=== PATIENT | male | born 1985 | race Hispanic/Latino ===

== ENCOUNTER 2018-03-07 18:35 | Emergency (ER) | payer OTHER ==
--- NOTE | 2018-03-07 20:29 | RAD REPORT ---
EXAM DESCRIPTION: RAD - Chest Pa And Lat (2 Views) - 03/07/2018 8:24 pm CLINICAL HISTORY: COUGH Chest pain. COMPARISON: Chest Pa And Lat (2 Views) dated 01/29/2017 FINDINGS: The lungs are clear. The heart is normal in size. No displaced fractures. IMPRESSION: No acute or concerning finding suspected.
--- NOTE | 2018-03-07 20:35 | ER ---
Nurse's Notes [facility] Name: Reid Landers Age: 32 yrs Sex: Male : 1985 Arrival Date: 03/07/2018 Time: 18:36 Bed 20 Private MD: None, None Diagnosis: Acute upper respiratory infection, unspecified Presentation: 03/07 18:53 Presenting complaint: Patient states: my chest hurts because of the cough i had for 5 hj days, non productive; denies fever and chills; took mucines, dayquil, nyquil but not helping;. Transition of care: patient was not received from another setting of care. Onset of symptoms was March 07, 2018. Risk Assessment: Do you want to hurt yourself or someone else? Patient reports no desire to harm self or others. Initial Sepsis Screen: Does the patient meet any 2 criteria? No. Patient's initial sepsis screen is negative. Does the patient have a suspected source of infection? No. Patient's initial sepsis screen is negative. Care prior to arrival: None. 18:53 Method Of Arrival: Ambulatory 18:53 Acuity: CRISTHIAN 4 hj Triage Assessment: 18:55 General: Appears in no apparent distress. uncomfortable, Behavior is calm, cooperative, hj appropriate for age. Pain: Denies pain. Complains of pain in chest. Historical: - Allergies: 18:55 No Known Allergies; hj - Home Meds: 18:55 None [Active]; hj - PMHx: 18:55 None; hj - PSHx: 18:55 None; hj - Immunization history:: Adult Immunizations up to date. - Social history:: Smoking status: Patient/guardian denies using tobacco, Patient uses alcohol, occasionally. - Ebola Screening: : Patient negative for fever greater than or equal to 101.5 degrees Fahrenheit, and additional compatible Ebola Virus Disease symptoms Patient denies exposure to infectious person Patient denies travel to an Ebola-affected area in the 21 days before illness onset. Screenin:55 Abuse screen: Denies threats or abuse. Denies injuries from another. Nutritional hj screening: No deficits noted. Tuberculosis screening: No symptoms or risk factors identified. Fall Risk None identified. Assessment: 20:00 General: Appears in no apparent distress. comfortable, Behavior is calm, cooperative, rr5 appropriate for age. 20:00 Pain: Complains of pain in chest Pain does not radiate. Quality of pain is described as rr5 aching, Pain began gradually, Is intermittent. Neuro: Level of Consciousness is awake, alert, obeys commands, Oriented to person, place, time. Cardiovascular: Reports chest pain, Capillary refill < 3 seconds Patient's skin is warm and dry. Respiratory: Airway is patent Respiratory effort is even, unlabored, Respiratory pattern is regular, symmetrical. GI: No signs and/or symptoms were reported involving the gastrointestinal system. : No signs and/or symptoms were reported regarding the genitourinary system. EENT: No signs and/or symptoms were reported regarding the EENT system. Derm: Skin is intact, Skin temperature is warm. Musculoskeletal: Capillary refill < 3 seconds, Range of motion: intact in all extremities. 20:45 Reassessment: Patient appears in no apparent distress at this time. Patient and/or rr5 family updated on plan of care and expected duration. Pain level reassessed. discharge instruction and prescription given and explained with no complaints made. Vital Signs: 18:55 BP 130 / 81; Pulse 88; Resp 18; Temp 98.4(O); Pulse Ox 97% on R/A; Weight 99.79 kg; hj Height 5 ft. 8 in. (172.72 cm); Pain 0/10; 18:55 Body Mass Index 33.45 (99.79 kg, 172.72 cm) ED Course: 18:36 Patient arrived in ED. sb2 18:36 None, None is Private Physician. sb2 18:55 Triage completed. hj 18:55 Arm band placed on right wrist. hj 18:55 Patient has correct armband on for positive identification. Bed in low position. Call hj light in reach. Side rails up X 1. 19:47 Ed Casillas PA is PHCP. cp 19:47 Uriel Orellana MD is Attending Physician. cp 20:23 X-ray completed. Patient tolerated procedure well. Patient moved back from radiology. sg4 20:24 XRAY Chest Pa And Lat (2 Views) In Process Unspecified. EDMS 20:45 No provider procedures requiring assistance completed. Patient did not have IV access rr5 during this emergency room visit. 20:51 Ulises Sanchez RN is Primary Nurse. rr5 Administered Medications: No medications were administered Outcome: 20:34 Discharge ordered by . cp 20:45 Discharged to home ambulatory, with family. rr5 20:45 Condition: stable 20:45 Discharge instructions given to patient, family, Instructed on discharge instructions, follow up and referral plans. medication usage, Demonstrated understanding of instructions, follow-up care, medications, Prescriptions given X 2. 20:52 Patient left the ED. rr5 Signatures: Dispatcher [employer] EDMS Romero Gonzalez RN RN Ed Casillas PA PA cp Billeau, Sheri sb2 Sophie Cameron sg4 Ulises Sanchez, JUSTYN RN rr5 Corrections: (The following items were deleted from the chart) 18:57 18:55 Pulse 88bpm; Resp 18bpm; Pulse Ox 97% RA; Temp 98.4F Oral; 99.79 kg; Height 5 ft. hj 8 in.; BMI: 33.4; Pain 0/10; hj 20:55 20:52 General: Appears in no apparent distress. comfortable, Behavior is calm, rr5 cooperative, appropriate for age, rr5
--- NOTE | 2018-03-07 20:35 | EDPHYS ---
Physician Documentation [facility] Name: Reid Landers Age: 32 yrs Sex: Male : 1985 Arrival Date: 03/07/2018 Time: 18:36 Bed 20 Private MD: None, None ED Physician Uriel Orellana HPI: 03/07 20:10 This 32 yrs old Male presents to ER via Ambulatory with complaints of Cough. cp 20:10 The patient or guardian reports cough, that is intermittent, with no sputum. Onset: The cp symptoms/episode began/occurred 5 day(s) ago. Severity of symptoms: in the emergency department the symptoms are unchanged, despite home interventions. Associated signs and symptoms: Pertinent negatives: chest pain, diarrhea, fever, rhinorrhea, sore throat, vomiting. Historical: - Allergies: 18:55 No Known Allergies; hj - Home Meds: 18:55 None [Active]; hj - PMHx: 18:55 None; hj - PSHx: 18:55 None; hj - Immunization history:: Adult Immunizations up to date. - Social history:: Smoking status: Patient/guardian denies using tobacco, Patient uses alcohol, occasionally. - Ebola Screening: : Patient negative for fever greater than or equal to 101.5 degrees Fahrenheit, and additional compatible Ebola Virus Disease symptoms Patient denies exposure to infectious person Patient denies travel to an Ebola-affected area in the 21 days before illness onset. ROS: 20:15 Constitutional: Negative for body aches, chills, fever, poor PO intake. cp 20:15 Eyes: Negative for injury, pain, redness, and discharge. cp 20:15 ENT: Negative for drainage from ear(s), ear pain, sore throat, difficulty swallowing, difficulty handling secretions. 20:15 Neck: Negative for pain with movement, pain at rest, stiffness. 20:15 Cardiovascular: Negative for chest pain, edema, palpitations. 20:15 Respiratory: Positive for cough, with no reported sputum, Negative for shortness of breath, wheezing. 20:15 Abdomen/GI: Negative for abdominal pain, nausea, vomiting, and diarrhea. 20:15 Skin: Negative for cellulitis, rash. 20:15 Neuro: Negative for altered mental status, headache, weakness. 20:15 All other systems are negative. Exam: 20:20 Constitutional: The patient appears in no acute distress, alert, awake, non-toxic, well cp developed, well nourished. 20:20 Head/Face: Normocephalic, atraumatic. cp 20:20 Eyes: Periorbital structures: appear normal, Conjunctiva: normal, no exudate, no injection, Lids and lashes: appear normal, bilaterally. 20:20 ENT: External ear(s): are unremarkable, Ear canal(s): are normal, clear, TM's: bulging, is not appreciated, bilaterally, dullness, bilaterally, erythema, is not appreciated, bilaterally, Nose: is normal, Mouth: Lips: moist, Oral mucosa: pink and intact, moist, Posterior pharynx: Airway: no evidence of obstruction, patent, Tonsils: are normal in appearance, swelling, is not appreciated, erythema, is not appreciated, exudate, is not appreciated. 20:20 Neck: ROM/movement: is normal, is supple, without pain, no range of motions limitations, no meningismus, no nuchal rigidity, Lymph nodes: no appreciated lymphadenopathy. 20:20 Chest/axilla: Inspection: normal, Palpation: is normal, no crepitus, no tenderness. 20:20 Cardiovascular: Rate: normal, Rhythm: regular. 20:20 Respiratory: the patient does not display signs of respiratory distress, Respirations: normal, no use of accessory muscles, no retractions, no splinting, no tachypnea, labored breathing, is not present, Breath sounds: are clear throughout, no decreased breath sounds, no stridor, no wheezing. 20:20 Abdomen/GI: Exam negative for discomfort, distension, guarding, Inspection: abdomen appears normal. 20:20 Back: pain, is absent, ROM is normal. 20:20 Skin: cellulitis, is not appreciated, no rash present. Vital Signs: 18:55 BP 130 / 81; Pulse 88; Resp 18; Temp 98.4(O); Pulse Ox 97% on R/A; Weight 99.79 kg; hj Height 5 ft. 8 in. (172.72 cm); Pain 0/10; 18:55 Body Mass Index 33.45 (99.79 kg, 172.72 cm) hj MDM: 19:47 Patient medically screened. cp 20:10 Differential Diagnosis: Bronchitis Influenza Pharyngitis Otitis Media Asthma cp Exacerbation Viral Syndrome Pneumonia. 20:33 Data reviewed: vital signs, nurses notes, radiologic studies, plain films. cp 20:33 Test interpretation: by ED physician or midlevel provider: plain radiologic studies. cp Counseling: I had a detailed discussion with the patient and/or guardian regarding: the historical points, exam findings, and any diagnostic results supporting the discharge/admit diagnosis, radiology results, to return to the emergency department if symptoms worsen or persist or if there are any questions or concerns that arise at home. Special discussion: I discussed with the patient/guardian that the patient's current presentation does not indicate dosing of antibiotics. They should follow-up with their primary care provider and return if the symptoms persist or progress. 03/07 20:06 Order name: XRAY Chest Pa And Lat (2 Views) cp Administered Medications: No medications were administered Disposition: 03/07/18 20:34 Discharged to Home. Impression: Acute upper respiratory infection, unspecified. - Condition is Stable. - Discharge Instructions: Upper Respiratory Infection, Adult. - Prescriptions for Tessalon Perles 100 mg Oral Capsule - take 1 capsule by ORAL route every 8 hours As needed; 15 capsule. Albuterol Sulfate 90 mcg/actuation - inhale 1-2 puff by INHALATION route every 4-6 hours; 1 Inhaler. - Medication Reconciliation Form, Thank You Letter, Antibiotic Education, Prescription Opioid Use, Work release form form. - Follow up: Private Physician; When: 2 - 3 days; Reason: Recheck today's complaints. - Problem is new. - Symptoms are unchanged. Signatures: Dispatcher [employer] EDMS Romero Gonzalez RN RN Ed Casillas PA PA cp Roque, Raymond, RN RN rr5 Corrections: (The following items were deleted from the chart) 20:52 20:34 03/07/2018 20:34 Discharged to Home. Impression: Acute upper respiratory rr5 infection, unspecified. Condition is Stable. Forms are Medication Reconciliation Form, Thank You Letter, Antibiotic Education, Prescription Opioid Use. Follow up: Private Physician; When: 2 - 3 days; Reason: Recheck today's complaints. Problem is new. Symptoms are unchanged. cp
== END 2018-03-07 20:52 | disposition home or self-care (01) ==
LOC: ER 18:35
DX: J06.9 Acute upper respiratory infection, unspecified (principal)
CPT/HCPCS: 71046; 99283

== ENCOUNTER 2018-03-12 10:33 | Emergency (ER) | payer OTHER ==
--- NOTE | 2018-03-12 11:04 | ER ---
Nurse's Notes [facility] Name: Reid Landers Age: 32 yrs Sex: Male : 1985 Arrival Date: 03/12/2018 Time: 10:37 Bed 11 Private MD: Diagnosis: Acute sinusitis;Acute bronchitis Presentation: 03/12 10:44 Presenting complaint: Patient states: Persistent cough x 1 month, states, " I was seen ph here earlier this week and they said if my cough didn't get any better to come back." Denies fever, chills, N/V or sore throat. Transition of care: patient was not received from another setting of care. Onset of symptoms was March 12, 2018. Risk Assessment: Do you want to hurt yourself or someone else? Patient reports no desire to harm self or others. Initial Sepsis Screen: Does the patient meet any 2 criteria? No. Patient's initial sepsis screen is negative. Does the patient have a suspected source of infection? No. Patient's initial sepsis screen is negative. Care prior to arrival: None. 10:44 Method Of Arrival: Ambulatory ph 10:44 Acuity: CRISTHIAN 4 ph Historical: - Allergies: 10:46 No Known Allergies; ph - Home Meds: 10:46 None [Active]; ph - PMHx: 10:46 None; ph - PSHx: 10:46 None; ph - Immunization history:: Adult Immunizations unknown. - Social history:: Smoking status: Patient/guardian denies using tobacco. - Ebola Screening: : No symptoms or risks identified at this time. Screenin:48 Abuse screen: Denies threats or abuse. Denies injuries from another. Nutritional ph screening: No deficits noted. Tuberculosis screening: No symptoms or risk factors identified. Fall Risk None identified. Assessment: 10:47 General: Appears in no apparent distress. comfortable, well groomed, Behavior is calm, ph cooperative, appropriate for age, Denies fever, chills. Pain: Denies pain. Neuro: Level of Consciousness is awake, alert, obeys commands, Oriented to person, place, time, situation. Cardiovascular: Capillary refill < 3 seconds in bilateral fingers Patient's skin is warm and dry. Respiratory: Reports cough that is productive, persistent Airway is patent Respiratory effort is even, unlabored, Respiratory pattern is regular, symmetrical, Breath sounds are clear bilaterally. Denies shortness of breath. GI: No signs and/or symptoms were reported involving the gastrointestinal system. Derm: Skin is intact, is healthy with good turgor, Skin is pink, warm \\T\\ dry. Musculoskeletal: Circulation, motion, and sensation intact. Range of motion: intact in all extremities. Vital Signs: 10:45 BP 130 / 95; Pulse 97; Resp 20; Temp 98.6; Pulse Ox 98% on R/A; Weight 99.79 kg; Height ph 5 ft. 8 in. (172.72 cm); 10:45 Body Mass Index 33.45 (99.79 kg, 172.72 cm) ph ED Course: 10:37 Patient arrived in ED. as 10:43 Ed Casillas PA is PHCP. cp 10:43 Oh Castaneda MD is Attending Physician. cp 10:44 Madison Elaine, RN is Primary Nurse. ph 10:45 Triage completed. ph 10:46 Arm band placed on Patient placed in an exam room. ph 10:48 Patient has correct armband on for positive identification. Bed in low position. Call ph light in reach. Side rails up X 1. 11:20 No provider procedures requiring assistance completed. Patient did not have IV access ph during this emergency room visit. Administered Medications: No medications were administered Outcome: 11:04 Discharge ordered by . cp 11:21 Patient left the ED. ph 11:21 Discharged to home ambulatory, with family. ph 11:21 Condition: good 11:21 Discharge instructions given to patient, Instructed on discharge instructions, follow up and referral plans. medication usage, Demonstrated understanding of instructions, follow-up care, medications, Prescriptions given X 3. Signatures: Alisha Monroy as Madison Elaine, RN RN ph Ed Casillas PA PA cp
--- NOTE | 2018-03-12 11:04 | EDPHYS ---
Physician Documentation [facility] Name: Reid Landers Age: 32 yrs Sex: Male : 1985 Arrival Date: 03/12/2018 Time: 10:37 Bed 11 Private MD: ED Physician Oh Castaneda HPI: 03/12 10:58 This 32 yrs old Male presents to ER via Ambulatory with complaints of Cough. cp 10:58 The patient or guardian reports cough, that is intermittent, with productive sputum, cp that is green. Onset: The symptoms/episode began/occurred 1 month(s) ago. Severity of symptoms: in the emergency department the symptoms are unchanged. Associated signs and symptoms: Pertinent positives: headache, Pertinent negatives: diarrhea, fever, vomiting. 10:58 The patient has been recently seen at the [facility] Emergency cp Department, this week, for similar complaints X-rays were performed. Historical: - Allergies: 10:46 No Known Allergies; ph - Home Meds: 10:46 None [Active]; ph - PMHx: 10:46 None; ph - PSHx: 10:46 None; ph - Immunization history:: Adult Immunizations unknown. - Social history:: Smoking status: Patient/guardian denies using tobacco. - Ebola Screening: : No symptoms or risks identified at this time. ROS: 11:00 Eyes: Negative for injury, pain, redness, and discharge. cp 11:00 Constitutional: Negative for body aches, chills, fever, poor PO intake. 11:00 ENT: Positive for sinus congestion, Negative for drainage from ear(s), sore throat, difficulty swallowing, difficulty handling secretions. 11:00 Respiratory: Positive for cough, with green sputum, Negative for shortness of breath, wheezing. 11:00 Abdomen/GI: Negative for vomiting, diarrhea, constipation. 11:00 Skin: Negative for cellulitis, rash. 11:00 Neuro: Positive for headache, Negative for altered mental status, weakness. 11:00 All other systems are negative. Exam: 11:02 Constitutional: The patient appears in no acute distress, alert, awake, non-toxic, well cp developed, well nourished. 11:02 Head/Face: Normocephalic, atraumatic. cp 11:02 Eyes: Periorbital structures: appear normal, Pupils: equal, round, and reactive to light and accomodation, Extraocular movements: intact throughout, Conjunctiva: normal, no exudate, no injection, Sclera: no appreciated abnormality, Lids and lashes: appear normal, bilaterally. 11:02 ENT: External ear(s): are unremarkable, Ear canal(s): are normal, clear, TM's: bulging, is not appreciated, bilaterally, erythema, that is mild, bilaterally, Nose: is normal, Mouth: Lips: moist, Oral mucosa: pink and intact, moist, Posterior pharynx: is normal, airway is patent, no erythema, no exudate. 11:02 Neck: ROM/movement: is normal, is supple, without pain, no range of motions limitations, no nuchal rigidity. 11:02 Chest/axilla: Inspection: normal, Palpation: is normal, no crepitus, no tenderness. 11:02 Cardiovascular: Rate: normal, Rhythm: regular, Edema: is not appreciated, JVD: is not appreciated. 11:02 Respiratory: the patient does not display signs of respiratory distress, Respirations: normal, no use of accessory muscles, no retractions, no splinting, no tachypnea, labored breathing, is not present, Breath sounds: bronchial sounds, that are mild, are heard diffusely, decreased breath sounds, are not appreciated, stridor, is not appreciated, wheezing: is not appreciated. 11:02 Abdomen/GI: Exam negative for discomfort, distension, guarding, Inspection: abdomen appears normal. 11:02 Skin: cellulitis, is not appreciated, no rash present. Vital Signs: 10:45 BP 130 / 95; Pulse 97; Resp 20; Temp 98.6; Pulse Ox 98% on R/A; Weight 99.79 kg; Height ph 5 ft. 8 in. (172.72 cm); 10:45 Body Mass Index 33.45 (99.79 kg, 172.72 cm) ph MDM: 10:43 Patient medically screened. cp 11:00 Differential Diagnosis: Bronchitis Sinusitis Otitis Media Viral Syndrome Pneumonia. cp 11:04 Data reviewed: vital signs, nurses notes, and as a result, I will discharge patient. cp 11:04 Counseling: I had a detailed discussion with the patient and/or guardian regarding: the cp historical points, exam findings, and any diagnostic results supporting the discharge/admit diagnosis, to return to the emergency department if symptoms worsen or persist or if there are any questions or concerns that arise at home. Administered Medications: No medications were administered Disposition: 03/13 09:13 Co-signature as Attending Physician, Oh Castaneda MD. Disposition: 03/12/18 11:04 Discharged to Home. Impression: Acute sinusitis, Acute bronchitis. - Condition is Stable. - Discharge Instructions: Acute Bronchitis, Adult, Sinusitis, Adult. - Prescriptions for Augmentin 875- 125 mg Oral Tablet - take 1 tablet by ORAL route every 12 hours for 10 days; 20 tablet. Medrol (Pj) 4 mg Oral Tablets, Dose Pack - take 1 tablet by ORAL route as directed - follow package instructions; 1 packet. Guaifenesin AC 10- 100 mg/5 mL Oral Liquid - take 10 milliliters by ORAL route every 6 hours As needed; 180 milliliter. - Work release form, Medication Reconciliation Form, Thank You Letter, Antibiotic Education, Prescription Opioid Use form. - Follow up: Private Physician; When: 2 - 3 days; Reason: Recheck today's complaints. - Problem is an ongoing problem. - Symptoms are unchanged. Signatures: Madison Elaine RN RN ph Ed Casillas PA PA Oh Caputo MD MD Corrections: (The following items were deleted from the chart) 03/12 11:21 11:04 03/12/2018 11:04 Discharged to Home. Impression: Acute sinusitis; Acute ph bronchitis. Condition is Stable. Prescriptions for Augmentin 875-125 mg Oral Tablet - take 1 tablet by ORAL route every 12 hours for 10 days; 20 tablet, Medrol (Pj) 4 mg Oral Tablets, Dose Pack - take 1 tablet by ORAL route as directed - follow package instructions; 1 packet, Guaifenesin AC 10-100 mg/5 mL Oral Liquid - take 10 milliliters by ORAL route every 6 hours As needed; 180 milliliter. and Forms are Medication Reconciliation Form, Thank You Letter, Antibiotic Education, Prescription Opioid Use. Follow up: Private Physician; When: 2 - 3 days; Reason: Recheck today's complaints. Problem is an ongoing problem. Symptoms are unchanged. cp
== END 2018-03-12 11:21 | disposition home or self-care (01) ==
LOC: ER 10:33
DX: J40 Bronchitis, not specified as acute or chronic (principal); J01.90 Acute sinusitis, unspecified
CPT/HCPCS: 99282

== ENCOUNTER 2018-06-21 09:58 | Emergency (ER) | payer OTHER, SELFPAY ==
[2018-06-21] MEDS ORDERED: IPRATROPIUM BROM 0.5MG/2.5ML ONE (10:23)
[2018-06-21] MEDS ORDERED: ALBUTEROL 2.5 MG/3 ML NEB SOL ONE (10:23)
--- NOTE | 2018-06-21 10:29 | RAD REPORT ---
EXAM DESCRIPTION: RAD - Chest Pa And Lat (2 Views) - 06/21/2018 10:24 am CLINICAL HISTORY: COUGH Chest pain. COMPARISON: Chest Pa And Lat (2 Views) dated 03/07/2018; Chest Pa And Lat (2 Views) dated 01/29/2017 FINDINGS: The lungs are clear. The heart is normal in size. No displaced fractures. IMPRESSION: No acute or concerning finding suspected.
--- NOTE | 2018-06-21 10:52 | EDPHYS ---
Physician Documentation [facility] Name: Reid Landers Age: 32 yrs Sex: Male : 1985 Arrival Date: 06/21/2018 Time: 10:00 Bed 20 Private MD: None, None ED Physician Kyle Combs HPI: 06/21 10:14 This 32 yrs old Male presents to ER via Ambulatory with complaints of Cough. kb 10:14 The patient or guardian reports cough, that is intermittent, described as moderate, kb with no sputum. Onset: The symptoms/episode began/occurred 2 week(s) ago. Severity of symptoms: At their worst the symptoms were moderate, in the emergency department the symptoms are unchanged. Modifying factors: The symptoms are alleviated by nothing, the symptoms are aggravated by nothing. Associated signs and symptoms: The patient has no apparent associated signs or symptoms. The patient has experienced a previous episode. The patient has not recently seen a physician. Pt reports cough for 2 weeks. Denies fever or shortness of breath. Historical: - Allergies: 10:07 No Known Allergies; aa5 - PMHx: 10:07 None; aa5 - PSHx: 10:07 None; aa5 - Immunization history:: Flu vaccine is not up to date. - Social history:: Smoking status: Patient/guardian denies using tobacco. - Ebola Screening: : Patient denies travel to an Ebola-affected area in the 21 days before illness onset. ROS: 10:14 Constitutional: Negative for fever, chills, and weight loss, Cardiovascular: Negative kb for chest pain, palpitations, and edema, Abdomen/GI: Negative for abdominal pain, nausea, vomiting, diarrhea, and constipation, Back: Negative for injury and pain, MS/Extremity: Negative for injury and deformity, Skin: Negative for injury, rash, and discoloration, Neuro: Negative for headache, weakness, numbness, tingling, and seizure. 10:14 Respiratory: Positive for cough, wheezing, Negative for dyspnea on exertion, hemoptysis, orthopnea, pleurisy, shortness of breath, sputum production. Exam: 10:14 Constitutional: This is a well developed, well nourished patient who is awake, alert, kb and in no acute distress. Head/Face: Normocephalic, atraumatic. Chest/axilla: Normal chest wall appearance and motion. Nontender with no deformity. No lesions are appreciated. Cardiovascular: Regular rate and rhythm with a normal S1 and S2. No gallops, murmurs, or rubs. Normal PMI, no JVD. No pulse deficits. Respiratory: Lungs have equal breath sounds bilaterally, clear to auscultation and percussion. No rales, rhonchi or wheezes noted. No increased work of breathing, no retractions or nasal flaring. Abdomen/GI: Soft, non-tender, with normal bowel sounds. No distension or tympany. No guarding or rebound. No evidence of tenderness throughout. Skin: Warm, dry with normal turgor. Normal color with no rashes, no lesions, and no evidence of cellulitis. MS/ Extremity: Pulses equal, no cyanosis. Neurovascular intact. Full, normal range of motion. Neuro: Awake and alert, GCS 15, oriented to person, place, time, and situation. Cranial nerves II-XII grossly intact. Motor strength 5/5 in all extremities. Sensory grossly intact. Cerebellar exam normal. Normal gait. 10:50 Respiratory: the patient does not display signs of respiratory distress, Respirations: kb normal, Breath sounds: are clear throughout. Vital Signs: 10:05 BP 138 / 64; Pulse 98; Resp 16 S; Temp 98.5(TE); Pulse Ox 95% on R/A; Weight 98.88 kg aa5 (R); Height 5 ft. 8 in. (172.72 cm) (R); Pain 2/10; 10:05 Body Mass Index 33.15 (98.88 kg, 172.72 cm) aa5 MDM: 10:04 Patient medically screened. kb 10:17 Data reviewed: vital signs, nurses notes. Data interpreted: Pulse oximetry: on room air kb is 95 %. Interpretation: normal. 10:51 Counseling: I had a detailed discussion with the patient and/or guardian regarding: the kb historical points, exam findings, and any diagnostic results supporting the discharge/admit diagnosis, radiology results, the need for outpatient follow up, a family practitioner, to return to the emergency department if symptoms worsen or persist or if there are any questions or concerns that arise at home. 06/21 10:07 Order name: Chest Pa And Lat (2 Views) XRAY; Complete Time: 10:31 kb Administered Medications: 10:13 Drug: Albuterol 2.5 mg Route: Inhalation; tw2 10:13 Drug: AtroVENT Aerosol 0.5 mg Route: Inhalation; tw Disposition: 15:47 Co-signature as Attending Physician, Kyle Combs MD I agree with the assessment and kdr plan of care. Disposition: 06/21/18 10:51 Discharged to Home. Impression: Bronchitis, not specified as acute or chronic. - Condition is Stable. - Discharge Instructions: Acute Bronchitis, Icon-gw-Toex. - Prescriptions for Tessalon Perles 100 mg Oral Capsule - take 1 capsule by ORAL route every 8 hours As needed; 15 capsule. Albuterol Sulfate 90 mcg/actuation - inhale 1-2 puff by INHALATION route every 4-6 hours; 1 Inhaler. - Medication Reconciliation Form, Thank You Letter, Antibiotic Education, Prescription Opioid Use, Work release form form. - Follow up: Private Physician; When: 2 - 3 days; Reason: Recheck today's complaints, Continuance of care, Re-evaluation by your physician. Follow up: Emergency Department; When: As needed; Reason: Worsening of condition. Signatures: Dispatcher [employer] EDMS Jennifer Silverio, NECK PINNER-C NECK PINNER-Ckb Kyle Combs MD MD [facility] Jessica Pandya, RN RN aa5 Iman Kelley RN RN tw2 Corrections: (The following items were deleted from the chart) 10:07 10:05 Social history: Smoking status: [place] [id number] 10:07 10:05 Immunization history: Adult Immunizations [place] [id number] 10:51 10:14 Respiratory: Positive for cough, Negative for dyspnea on exertion, hemoptysis, kb orthopnea, pleurisy, shortness of breath, sputum production, wheezing, kb 10:58 10:51 06/21/2018 10:51 Discharged to Home. Impression: Bronchitis, not specified as tw2 acute or chronic. Condition is Stable. Forms are Work release form, Medication Reconciliation Form, Thank You Letter, Antibiotic Education, Prescription Opioid Use. Follow up: Private Physician; When: 2 - 3 days; Reason: Recheck today's complaints, Continuance of care, Re-evaluation by your physician. Follow up: Emergency Department; When: As needed; Reason: Worsening of condition. kb
--- NOTE | 2018-06-21 10:52 | ER ---
Nurse's Notes [facility] Name: Reid Landers Age: 32 yrs Sex: Male : 1985 Arrival Date: 06/21/2018 Time: 10:00 Bed 20 Private MD: None, None Diagnosis: Bronchitis, not specified as acute or chronic Presentation: 06/21 10:05 Risk Assessment: Do you want to hurt yourself or someone else? Patient reports no tw2 desire to harm self or others. Initial Sepsis Screen: Does the patient meet any 2 criteria? No. Patient's initial sepsis screen is negative. Does the patient have a suspected source of infection? No. Patient's initial sepsis screen is negative. Care prior to arrival: None. 10:05 Presenting complaint: Patient states: sore throat and productive cough that began 1 aa5 week ago. Transition of care: patient was not received from another setting of care. Onset of symptoms was May 2018. Risk Assessment: Do you want to hurt yourself or someone else? Patient reports no desire to harm self or others. 10:05 Method Of Arrival: Ambulatory aa5 10:05 Acuity: CRISTHIAN 3 aa5 Historical: - Allergies: 10:07 No Known Allergies; aa5 - PMHx: 10:07 None; aa5 - PSHx: 10:07 None; aa5 - Immunization history:: Flu vaccine is not up to date. - Social history:: Smoking status: Patient/guardian denies using tobacco. - Ebola Screening: : Patient denies travel to an Ebola-affected area in the 21 days before illness onset. Screenin:04 Abuse screen: Denies threats or abuse. Nutritional screening: No deficits noted. tw2 Tuberculosis screening: No symptoms or risk factors identified. Fall Risk None identified. Assessment: 10:05 General: Appears in no apparent distress. well groomed, Behavior is calm, cooperative, tw2 appropriate for age. Pain: Denies pain. Neuro: Level of Consciousness is awake, alert, obeys commands, Oriented to person, place, time, situation. Cardiovascular: Capillary refill < 3 seconds Patient's skin is warm and dry. Respiratory: Reports cough that is Airway is patent Respiratory effort is even, unlabored, Respiratory pattern is regular, symmetrical. GI: No signs and/or symptoms were reported involving the gastrointestinal system. : No signs and/or symptoms were reported regarding the genitourinary system. EENT: No signs and/or symptoms were reported regarding the EENT system. Derm: No signs and/or symptoms reported regarding the dermatologic system. 10:58 Reassessment: Patient appears in no apparent distress at this time. No changes from tw2 previously documented assessment. Patient and/or family updated on plan of care and expected duration. Pain level reassessed. Patient is alert, oriented x 3, equal unlabored respirations, skin warm/dry/pink. Vital Signs: 10:05 BP 138 / 64; Pulse 98; Resp 16 S; Temp 98.5(TE); Pulse Ox 95% on R/A; Weight 98.88 kg aa5 (R); Height 5 ft. 8 in. (172.72 cm) (R); Pain 2/10; 10:05 Body Mass Index 33.15 (98.88 kg, 172.72 cm) aa5 ED Course: 10:00 Patient arrived in ED. mr 10:01 None, None is Private Physician. mr 10:02 Iman Kelley, JUSTYN is Primary Nurse. tw2 10:04 Jennifer Silverio FNP-C [facility]. kb 10:04 Kyle Combs MD is Attending Physician. kb 10:05 Bed in low position. Call light in reach. Pulse ox on. NIBP on. tw2 10:06 Triage completed. aa5 10:06 Arm band placed on. tw2 10:25 Chest Pa And Lat (2 Views) XRAY In Process Unspecified. EDMS 10:58 No provider procedures requiring assistance completed. Patient did not have IV access tw2 during this emergency room visit. Administered Medications: 10:13 Drug: Albuterol 2.5 mg Route: Inhalation; tw2 10:13 Drug: AtroVENT Aerosol 0.5 mg Route: Inhalation; tw2 Outcome: 10:51 Discharge ordered by . kb 10:58 Discharged to home ambulatory, with significant other. tw2 10:58 Condition: stable 10:58 Discharge instructions given to patient, significant other, Instructed on discharge instructions, follow up and referral plans. medication usage, Demonstrated understanding of instructions, follow-up care, medications, Prescriptions given X 2. 10:58 Patient left the ED. tw2 Signatures: Dispatcher [employer] EDMS Jennifer Silverio CAPTION WRITER-C CAPTION WRITER-Ckb YuenRukhsana mr MumtazJessica, RN RN aa5 Iman Kelley RN RN tw2 Corrections: (The following items were deleted from the chart) 10:05 Social history: Smoking status: 10:05 Immunization history: Adult Immunizations aa5
== END 2018-06-21 10:58 | disposition home or self-care (01) ==
LOC: ER 09:58
DX: J40 Bronchitis, not specified as acute or chronic (principal)
CPT/HCPCS: 71046; 99284

== ENCOUNTER 2019-06-25 21:35 | Emergency (ER) | payer OTHER, SELFPAY ==
[2019-06-25] MEDS ORDERED: DIPHENHYDRAMINE 25 MG TAB/CAP ONE (22:12)
[2019-06-25] MEDS ORDERED: predniSONE 20 MG TAB ONE (22:12)
[2019-06-25] MEDS ORDERED: FAMOTIDINE 20 MG TAB ONE (22:13)
[2019-06-25] MEDS ORDERED: Ringers Lactate 1,000 ML IV ONE (22:47)
--- NOTE | 2019-06-25 23:00 | ER ---
Nurse's Notes [facility] Name: Reid Landers Age: 33 yrs Sex: Male : 1985 Arrival Date: 06/25/2019 Time: 21:37 Bed 2 Private MD: Diagnosis: Right eye chemosis Presentation: 06/24 21:43 Chief complaint: Patient states: Right eye irritation, redness, and swelling for less ll1 than 1 hour [employer]. No fever. Coronavirus screen: Proceed with normal triage. Patient denies a cough. Patient denies shortness of breath or difficulty breathing. Patient denies measured and/or subjective temperature greater than 100.4F prior to today's visit. Patient denies travel on a cruise ship or to a country the [facility] currently lists as an affected area. Patient denies contact with known and/or suspected case of COVID-19. Ebola Screen: Patient denies travel to an Ebola-affected area in the 21 days before illness onset. Mechanism of Injury: No Mechanism of Injury. The patient denies any loss of vision. Initial Sepsis Screen: Does the patient meet any 2 criteria? No. Patient's initial sepsis screen is negative. Does the patient have a suspected source of infection? No. Patient's initial sepsis screen is negative. Risk Assessment: Do you want to hurt yourself or someone else? Patient reports no desire to harm self or others. Onset of symptoms was June 25, 2019. 21:43 Method Of Arrival: Ambulatory ll1 21:43 Acuity: CRISTHIAN 4 ll1 Historical: - Allergies: 21:44 No Known Allergies; ll1 - PMHx: 21:44 None; ll1 - PSHx: 21:44 None; ll1 - Social history:: Smoking status: Patient denies any tobacco usage or history of. Patient uses alcohol, only on a social basis. Patient/guardian denies using street drugs. Screenin:45 Abuse screen: Denies threats or abuse. Nutritional screening: No deficits noted. jb4 Tuberculosis screening: No symptoms or risk factors identified. Fall Risk None identified. Assessment: 21:45 General: Appears in no apparent distress. comfortable, Behavior is calm, cooperative, jb4 appropriate for age, swelling noted to the right eye.. Pain: Complains of pain in right eye Pain does not radiate. Pain currently is 2 out of 10 on a pain scale. Neuro: Level of Consciousness is awake, alert, obeys commands, Oriented to person, place, time, situation. Cardiovascular: Patient's skin is warm and dry. Respiratory: Airway is patent Respiratory effort is even, unlabored, Respiratory pattern is regular, symmetrical. GI: No signs and/or symptoms were reported involving the gastrointestinal system. : No signs and/or symptoms were reported regarding the genitourinary system. EENT: Eyes are tearing on right eye Sclera/Cornea are clear in outer aspect of conjuctiva of right eye, iris of right eye and inner aspect of conjuctiva of right eye. Derm: Skin is intact, Skin is pink, warm \T\ dry. Musculoskeletal: Circulation, motion, and sensation intact. Range of motion: intact in all extremities. 23:06 Reassessment: Patient appears in no apparent distress at this time. Patient and/or jb4 family updated on plan of care and expected duration. Pain level reassessed. Patient is alert, oriented x 3, equal unlabored respirations, skin warm/dry/pink. Patient states feeling better. Patient states symptoms have improved. Vital Signs: 21:43 BP 142 / 101; Pulse 85; Resp 17; Temp 98.4; Pulse Ox 99% ; Pain 2/10; ll1 Visual Acuity: 22:20 Left Eye Visual acuity 20/15, Pupil size 4 mm, Normal, React To Light, Reactive To jb4 Accomodation; Right Eye Visual acuity 20/15, Pupil size 4 mm, Normal, React To Light, Reactive To Accomodation; Both Eyes Visual acuity 20/10; Without Lenses; ED Course: 21:37 Patient arrived in ED. ag3 21:41 Jay Jaruegui, RN is Primary Nurse. jb4 21:44 Triage completed. ll1 21:44 Arm band placed on Patient placed in an exam room, on a stretcher. ll1 21:45 Patient has correct armband on for positive identification. Placed in gown. Bed in low jb4 position. Call light in reach. Side rails up X 1. Pulse ox on. NIBP on. 21:45 No provider procedures requiring assistance completed. Patient did not have IV access jb4 during this emergency room visit. 21:46 Ed Casillas PA is PHCP. cp 21:46 Uriel Orellana MD is Attending Physician. cp 22:56 Monico Clarke MD is Referral Physician. cp Administered Medications: 22:19 Drug: Benadryl 50 mg Route: PO; jb4 22:19 Drug: Pepcid 20 mg Route: PO; jb4 22:19 Drug: predniSONE 60 mg Route: PO; jb4 Outcome: 22:58 Discharge ordered by . cp 23:00 Discharged to home ambulatory. jb4 23:00 Condition: stable 23:00 Discharge instructions given to patient, Instructed on discharge instructions, follow up and referral plans. medication usage, Demonstrated understanding of instructions, follow-up care, medications, Prescriptions given X 2. 23:06 Patient left the ED. jb4 Signatures: Ed Casillas PA PA cp Jay Jauregui RN RN jb4 Elda Mendez3 Ketty Garcia, RN RN ll1 Corrections: (The following items were deleted from the chart) 06/25 07:38 06/24 23:00 Discharge instructions given to patient, Instructed on discharge jb4 instructions, follow up and referral plans. medication usage, Demonstrated understanding of instructions, follow-up care, medications, Prescriptions given X 3, jb4
--- NOTE | 2019-06-25 23:00 | EDPHYS ---
Physician Documentation [facility] Name: Reid Landers Age: 33 yrs Sex: Male : 1985 Arrival Date: 06/25/2019 Time: 21:37 Bed 2 Private MD: ED Physician Uriel Orellana HPI: 06/24 22:00 This 33 yrs old Male presents to ER via Ambulatory with complaints of Eye Pain.cp 22:00 The patient is experiencing redness, swelling, irritation. Onset: The symptoms/episode cp began/occurred 1 hour(s) ago. Duration: the symptoms are continuous. Patient does not utilize any form of vision correction. 22:00 Patient reports he was cooking fish and rubbed eye. Denies any known allergies. cp Historical: - Allergies: :44 No Known Allergies; ll1 - PMHx: :44 None; ll1 - PSHx: :44 None; ll1 - Social history:: Smoking status: Patient denies any tobacco usage or history of. Patient uses alcohol, only on a social basis. Patient/guardian denies using street drugs. ROS: 22:05 Constitutional: Negative for body aches, chills, fever, poor PO intake. cp 22:05 Eyes: Positive for redness, swelling, of the right eye, irritation, Negative for cp discharge, foreign body sensation, injury or acute deformity. 22:05 ENT: Negative for drainage from ear(s), ear pain, sore throat, difficulty swallowing, difficulty handling secretions. 22:05 Respiratory: Negative for cough, shortness of breath, wheezing. 22:05 Abdomen/GI: Negative for abdominal pain, nausea, vomiting, and diarrhea. 22:05 Skin: Negative for rash. 22:05 Neuro: Negative for headache. 22:05 All other systems are negative. Exam: 22:25 Visual Acuity: I have reviewed the nursing documentation. cp 22:25 Head/Face: Normocephalic, atraumatic. cp 22:25 Constitutional: The patient appears in no acute distress, alert, awake, non-toxic, well developed, well nourished. 22:25 Eyes: Periorbital structures: appear normal, Pupils: equal, round, and reactive to light and accomodation, Extraocular movements: intact throughout, Conjunctiva: chemosis, that is mild, in right eye, injected, in the right eye, mild, Corneas: no acute changes, no evidence of abrasion, no foreign body, Lids and lashes: appear normal, bilaterally. 22:25 ENT: External ear(s): are unremarkable, Ear canal(s): are normal, clear, TM's: dullness, bilaterally, Nose: is normal, Mouth: is normal, Posterior pharynx: is normal, airway is patent, no erythema, no exudate. 22:25 Neck: ROM/movement: is normal, is supple, without pain, no range of motions limitations, no nuchal rigidity, Lymph nodes: no appreciated lymphadenopathy. 22:25 Chest/axilla: Inspection: normal. 22:25 Cardiovascular: Rate: normal. 22:25 Respiratory: the patient does not display signs of respiratory distress, Respirations: normal. 22:25 Skin: cellulitis, is not appreciated, no rash present. Vital Signs: 21:43 BP 142 / 101; Pulse 85; Resp 17; Temp 98.4; Pulse Ox 99% ; Pain 2/10; ll1 Visual Acuity: 22:20 Left Eye Visual acuity 20/15, Pupil size 4 mm, Normal, React To Light, Reactive To jb4 Accomodation; Right Eye Visual acuity 20/15, Pupil size 4 mm, Normal, React To Light, Reactive To Accomodation; Both Eyes Visual acuity 20/10; Without Lenses; MDM: 21:55 Patient medically screened. cp 22:00 Differential diagnosis: Corneal abrasion of right eye. Foreign body in right eye. Acute cp iritis of right eye. Allergic conjunctivitis in right eye. Infectious conjunctivitis in right eye. 22:57 Data reviewed: vital signs, nurses notes, and as a result, I will discharge patient. cp 22:57 Counseling: I had a detailed discussion with the patient and/or guardian regarding: the cp historical points, exam findings, and any diagnostic results supporting the discharge/admit diagnosis, the need for outpatient follow up, an opthalmologist, to return to the emergency department if symptoms worsen or persist or if there are any questions or concerns that arise at home. Response to treatment: the patient's symptoms have markedly improved after treatment. 06/24 21:56 Order name: Visual Acuity; Complete Time: 22:20 cp 06/24 22:32 Order name: Misc. Order: right eye irrigation with lactated ringers; Complete Time: cp 22:50 Administered Medications: 22:19 Drug: Benadryl 50 mg Route: PO; jb4 22:19 Drug: Pepcid 20 mg Route: PO; jb4 22:19 Drug: predniSONE 60 mg Route: PO; jb4 Disposition: 23:00 Chart complete. cp 23:07 Co-signature as Attending Physician, Uriel Orellana MD. pkl Disposition: 06/25/19 22:58 Discharged to Home. Impression: Right eye chemosis. - Condition is Stable. - Prescriptions for Patanol 0.1 % Ophthalmic Drops - instill 1 drop by OPHTHALMIC route every 12 hours As needed instill drops in affected eye as directed; 1 bottle. Prednisone 20 mg Oral Tablet - take 2 tablet by ORAL route once daily for 5 days; 10 tablet. - Medication Reconciliation Form, Thank You Letter, Antibiotic Education, Prescription Opioid Use form. - Follow up: Monico Clarke MD; When: 1 - 2 days; Reason: Worsening of condition. - Problem is new. - Symptoms have improved. Signatures: Uriel Orellana MD MD pkl Ed Caisllas PA PA cp Jay Jauregui RN RN jb4 Ketty Garcia RN RN ll1 Corrections: (The following items were deleted from the chart) 23:06 22:58 06/25/2019 22:58 Discharged to Home. Impression: Right eye chemosis. Condition is jb4 Stable. Forms are Medication Reconciliation Form, Thank You Letter, Antibiotic Education, Prescription Opioid Use. Follow up: Monico Clarke; When: 1 - 2 days; Reason: Worsening of condition. Problem is new. Symptoms have improved. cp
[2019-06-25 23:12] VITALS: BP 142/101; TEMP 98.4; O2SAT 99
== END 2019-06-25 23:06 | disposition home or self-care (01) ==
LOC: ER 21:35
DX: H11.421 Conjunctival edema, right eye (principal)
CPT/HCPCS: 99283; J7120; J7512

== ENCOUNTER 2019-07-14 13:30 | Emergency (ER) | payer SELFPAY ==
[2019-07-14] MEDS ORDERED: FLUORESCEIN SODIUM 1 MG/WRAP ONE (14:05)
[2019-07-14] MEDS ORDERED: TETRACAINE HCL 0.5% 4ML OPTH ONE (14:05)
--- NOTE | 2019-07-14 15:07 | ER ---
Nurse's Notes [facility] Name: Reid Landers Age: 33 yrs Sex: Male : 1985 Arrival Date: 07/14/2019 Time: 13:36 Bed 6 Private MD: Diagnosis: Ocular pain, left eye Presentation: 07/13 14:00 Chief complaint: Patient states: Working on car this morning and something got in my jl7 eye. Reports left eye irritation, redness noted to left eye. Coronavirus screen: Proceed with normal triage. Patient denies a cough. Patient denies shortness of breath or difficulty breathing. Patient denies measured and/or subjective temperature greater than 100.4F prior to today's visit. Patient denies travel on a cruise ship or to a country the [facility] currently lists as an affected area. Patient denies contact with known and/or suspected case of COVID-19. Ebola Screen: No symptoms or risks identified at this time. Initial Sepsis Screen: Does the patient meet any 2 criteria? No. Patient's initial sepsis screen is negative. Does the patient have a suspected source of infection? No. Patient's initial sepsis screen is negative. Risk Assessment: Do you want to hurt yourself or someone else? Patient reports no desire to harm self or others. Onset of symptoms was July 14, 2019 at 09:00. Care prior to arrival: None. 14:00 Method Of Arrival: Ambulatory jl7 14:00 Acuity: CRISTHIAN 4 jl7 Triage Assessment: 14:02 General: Appears in no apparent distress. uncomfortable, Behavior is calm, cooperative, jl7 appropriate for age. Pain: Denies pain. EENT: Sclera/Cornea are reddened in right eye and left eye. Neuro: Level of Consciousness is awake, alert, obeys commands, Oriented to person, place, time, situation. Cardiovascular: Patient's skin is warm and dry. Respiratory: Airway is patent Respiratory effort is even, unlabored, Respiratory pattern is regular, symmetrical. Derm: Skin is pink, warm \T\ dry. Historical: - Allergies: 14:02 No Known Allergies; jl7 - Home Meds: 14:02 None [Active]; jl7 - PMHx: 14:02 None; jl7 - PSHx: 14:02 None; jl7 - Immunization history:: Adult Immunizations unknown. - Social history:: Smoking status: Patient denies any tobacco usage or history of. - Family history:: not pertinent. Screenin:06 Abuse screen: Denies threats or abuse. Denies injuries from another. Nutritional jl7 screening: No deficits noted. Tuberculosis screening: No symptoms or risk factors identified. Fall Risk None identified. Assessment: 14:04 General: Appears in no apparent distress. comfortable, Behavior is calm, cooperative, em appropriate for age. Pain: Denies pain. Neuro: Level of Consciousness is awake, alert, obeys commands, Oriented to person, place, time, situation, Appropriate for age. Cardiovascular: Capillary refill < 3 seconds Patient's skin is warm and dry. Respiratory: Airway is patent Respiratory effort is even, unlabored, Respiratory pattern is regular, symmetrical. EENT: Eyes are tearing on left eye Sclera/Cornea are reddened in left eye Denies blurred vision photophobia. Derm: Skin is intact, is healthy with good turgor, Skin is pink, warm \T\ dry. Musculoskeletal: Capillary refill < 3 seconds, Range of motion: intact in all extremities. Vital Signs: 14:00 BP 142 / 95; Pulse 74; Resp 16; Temp 98; Pulse Ox 98% ; Weight 86.18 kg; Height 5 ft. 8 jl7 in. (172.72 cm); Pain 0/10; 14:00 Body Mass Index 28.89 (86.18 kg, 172.72 cm) jl7 Visual Acuity: 14:04 Left Eye Visual acuity 20/15, ; Right Eye Visual acuity 20/15, ; Both Eyes Visual em acuity 20/20; Without Lenses; ED Course: 13:36 Patient arrived in ED. mr 13:56 Darryl Richmond, RN is Primary Nurse. em 14:01 Ed Farrell MD is Attending Physician. [facility] 14:01 Triage completed. jl7 14:02 Arm band placed on right wrist. jl7 14:06 Patient has correct armband on for positive identification. Bed in low position. Call [facility] light in reach. Side rails up X 1. Pulse ox on. NIBP on. 14:50 Assist provider with eye exam of left eye. using fluorescein stain, Performed by Ed Farrell MD Patient tolerated well. 15:01 Patient did not have IV access during this emergency room visit. em 15:05 Monico Clarke MD is Referral Physician. [facility] Administered Medications: 14:50 Drug: Tetracaine Drops 0.5 % 1 drops Route: Ophthalmic; Site: left eye; em 14:56 Follow up: Response: No adverse reaction; Pain is decreased em 15:16 Drug: Tobramycin Ointment (0.3 %) 1 application Route: Ophthalmic; Site: left eye; em 15:16 Follow up: Response: Medication administered at discharge. em Outcome: 15:06 Discharge ordered by . [facility] 15:16 Discharged to home ambulatory. em 15:16 Condition: good 15:16 Discharge instructions given to patient, Instructed on discharge instructions, follow up and referral plans. medication usage, Demonstrated understanding of instructions, follow-up care, medications, Prescriptions given X 1. 15:18 Patient left the ED. em Signatures: Ed Farrell MD MD cha Rivera, Mary mr Munoz, Edgar, RN RN em Sommer Decker RN RN jl7
--- NOTE | 2019-07-14 15:08 | EDPHYS ---
Physician Documentation [facility] Name: Reid Landers Age: 33 yrs Sex: Male : 1985 Arrival Date: 07/14/2019 Time: 13:36 Bed 6 Private MD: ED Physician Ed Farrell HPI: 07/13 14:58 This 33 yrs old Male presents to ER via Ambulatory with complaints of Foreign sona Body In Eye. 14:58 The patient is experiencing foreign body sensation, pain, The patient sustained an sona abrasion, to the left eye. Onset: The symptoms/episode began/occurred this morning. Duration: the symptoms are continuous. Alleviated by nothing. Associated signs and symptoms: Pertinent positives: None. Patient does not utilize any form of vision correction. Severity of symptoms: At their worst the symptoms were mild in the emergency department the symptoms are unchanged. The patient has not experienced similar symptoms in the past. Historical: - Allergies: 14:02 No Known Allergies; jl7 - Home Meds: 14:02 None [Active]; jl7 - PMHx: 14:02 None; jl7 - PSHx: 14:02 None; jl7 - Immunization history:: Adult Immunizations unknown. - Social history:: Smoking status: Patient denies any tobacco usage or history of. - Family history:: not pertinent. ROS: 14:58 Constitutional: Negative for fever, chills, and weight loss, ENT: Negative for injury, sona pain, and discharge, Neck: Negative for injury, pain, and swelling, Cardiovascular: Negative for chest pain, palpitations, and edema, Respiratory: Negative for shortness of breath, cough, wheezing, and pleuritic chest pain, Abdomen/GI: Negative for abdominal pain, nausea, vomiting, diarrhea, and constipation, Back: Negative for injury and pain, : Negative for injury, bleeding, discharge, and swelling, MS/Extremity: Negative for injury and deformity, Skin: Negative for injury, rash, and discoloration, Neuro: Negative for headache, weakness, numbness, tingling, and seizure, Psych: Negative for depression, anxiety, suicide ideation, homicidal ideation, and hallucinations, Allergy/Immunology: Negative for hives, rash, and allergies, Endocrine: Negative for neck swelling, polydipsia, polyuria, polyphagia, and marked weight changes, Hematologic/Lymphatic: Negative for swollen nodes, abnormal bleeding, and unusual bruising. 14:58 Eyes: Positive for discharge, foreign body sensation, pain, of the outer aspect of conjuctiva of left eye, iris of left eye and inner aspect of conjunctiva of left eye. Exam: 14:58 Constitutional: This is a well developed, well nourished patient who is awake, alert, sona and in no acute distress. Head/Face: Normocephalic, atraumatic. ENT: Nares patent. No nasal discharge, no septal abnormalities noted. Tympanic membranes are normal and external auditory canals are clear. Oropharynx with no redness, swelling, or masses, exudates, or evidence of obstruction, uvula midline. Mucous membranes moist. Neck: Trachea midline, no thyromegaly or masses palpated, and no cervical lymphadenopathy. Supple, full range of motion without nuchal rigidity, or vertebral point tenderness. No Meningismus. Chest/axilla: Normal chest wall appearance and motion. Nontender with no deformity. No lesions are appreciated. Cardiovascular: Regular rate and rhythm with a normal S1 and S2. No gallops, murmurs, or rubs. Normal PMI, no JVD. No pulse deficits. Respiratory: Lungs have equal breath sounds bilaterally, clear to auscultation and percussion. No rales, rhonchi or wheezes noted. No increased work of breathing, no retractions or nasal flaring. Back: No spinal tenderness. No costovertebral tenderness. Full range of motion. Skin: Warm, dry with normal turgor. Normal color with no rashes, no lesions, and no evidence of cellulitis. MS/ Extremity: Pulses equal, no cyanosis. Neurovascular intact. Full, normal range of motion. Neuro: Awake and alert, GCS 15, oriented to person, place, time, and situation. Cranial nerves II-XII grossly intact. Motor strength 5/5 in all extremities. Sensory grossly intact. Cerebellar exam normal. Normal gait. Psych: Awake, alert, with orientation to person, place and time. Behavior, mood, and affect are within normal limits. 14:58 Eyes: Periorbital structures: appear normal, no acute changes, Pupils: no acute changes, equal, round, and reactive to light and accomodation, Extraocular movements: intact throughout, Conjunctiva: normal, no acute changes, Corneas: are normal, no acute changes, Sclera: no appreciated abnormality, no acute changes, Anterior chamber: normal, no acute changes, Lids and lashes: appear normal, no acute changes, funduscopic exam reveals no obvious abnormalities, no acute changes, Visual nina: are intact, no acute changes, Nystagmus: is not appreciated, no acute changes. Vital Signs: 14:00 BP 142 / 95; Pulse 74; Resp 16; Temp 98; Pulse Ox 98% ; Weight 86.18 kg; Height 5 ft. 8 jl7 in. (172.72 cm); Pain 0/10; 14:00 Body Mass Index 28.89 (86.18 kg, 172.72 cm) jl7 Visual Acuity: 14:04 Left Eye Visual acuity 20/15, ; Right Eye Visual acuity 20/15, ; Both Eyes Visual em acuity 20/20; Without Lenses; MDM: 14:01 Patient medically screened. [facility] 15:02 Data reviewed: vital signs, nurses notes. [facility] 15:02 Differential diagnosis: Corneal abrasion of Corneal ulcer of Foreign body in left eye. [facility] Data interpreted: surveillance monitor: not applicable for this patient encounter. rate is 98 beats/min, Pulse oximetry: on room air is 98 %. ED course: no fb seen, hit while working on his car, no abrasion noted. 07/13 14:02 Order name: Visual Acuity; Complete Time: 14:04 [facility] 07/13 14:02 Order name: Eye Tray; Complete Time: 14:04 [facility] 07/13 14:02 Order name: Fluoresene Opth strip; Complete Time: 14:04 [facility] Administered Medications: 14:50 Drug: Tetracaine Drops 0.5 % 1 drops Route: Ophthalmic; Site: left eye; em 14:56 Follow up: Response: No adverse reaction; Pain is decreased em 15:16 Drug: Tobramycin Ointment (0.3 %) 1 application Route: Ophthalmic; Site: left eye; em 15:16 Follow up: Response: Medication administered at discharge. em Disposition: 07/14/19 15:06 Discharged to Home. Impression: Ocular pain, left eye. - Condition is Stable. - Discharge Instructions: Eye Contusion, Eye Foreign Body, Eye Contusion, [id number]. - Prescriptions for Tobrex 0.3 % Ophthalmic ointment - apply 1 inch ribbon by OPHTHALMIC route 3 times per day; 3.5 gram. - Medication Reconciliation Form, Thank You Letter, Antibiotic Education, Prescription Opioid Use form. - Follow up: Private Physician; When: 2 - 3 days; Reason: Recheck today's complaints, Continuance of care, Re-evaluation by your physician. Follow up: Monico Clarke MD; When: 2 - 3 days; Reason: Recheck today's complaints, Continuance of care, Re-evaluation by your physician. - Problem is new. - Symptoms have improved. Signatures: Ed Farrell MD MD cha Munoz, Edgar, RN RN em Sommer Decker RN RN jl7 Corrections: (The following items were deleted from the chart) 15:18 15:06 07/14/2019 15:06 Discharged to Home. Impression: Ocular pain, left eye. Condition em is Stable. Forms are Medication Reconciliation Form, Thank You Letter, Antibiotic Education, Prescription Opioid Use. Follow up: Private Physician; When: 2 - 3 days; Reason: Recheck today's complaints, Continuance of care, Re-evaluation by your physician. Follow up: Monico Clarke; When: 2 - 3 days; Reason: Recheck today's complaints, Continuance of care, Re-evaluation by your physician. Problem is new. Symptoms have improved. sona
[2019-07-14] MEDS ORDERED: TOBRAMYCIN SULF 0.3% OPTH OINT ONE (15:10)
[2019-07-14 15:29] VITALS: BP 142/95; TEMP 98; O2SAT 98
== END 2019-07-14 15:18 | disposition home or self-care (01) ==
LOC: ER 13:30
DX: H57.12 Ocular pain, left eye (principal)
CPT/HCPCS: 99284

== ENCOUNTER 2019-10-24 21:50 | Emergency (ER) | payer SELFPAY ==
[2019-10-24] MEDS ORDERED: LIDOCAINE 1% MPF 30 ML VIAL ONE (22:42)
[2019-10-24] MEDS ORDERED: TETANUS & DIPHTHERIA TOX,ADULT 0.5 ML VIAL ONE (22:42)
--- NOTE | 2019-10-24 23:24 | EDPHYS ---
Physician Documentation [facility] Name: Reid Landers Age: 34 yrs Sex: Male : 1985 Arrival Date: 10/24/2019 Time: 21:55 Bed 4 Private MD: ED Physician Marcus Harley HPI: 10/23 22:23 This 34 yrs old Male presents to ER via Ambulatory with complaints of Head jmm Injury With LOC-Adult, Headache, Dizziness. 22:23 The patient or guardian reports injury. Onset: The symptoms/episode began/occurred jmm acutely, just prior to arrival. Associated signs and symptoms: Loss of consciousness: This patient did not experience any loss of consciousness. This is a 34 year old male with no chronic medical conditions that presents to the ED with complaints of nasal injury. Patient accidently hit his face with a pipe. Denies LOC, vomiting. . Historical: - Allergies: 21:59 No Known Allergies; ll1 - PSHx: 21:59 None; ll1 - Immunization history:: Last tetanus immunization: unknown, Flu vaccine is not up to date. - Social history:: Smoking status: Patient denies any tobacco usage or history of. Patient/guardian denies using alcohol, street drugs. ROS: 22:23 Constitutional: Negative for fever, chills, and weight loss, Cardiovascular: Negative jmm for chest pain, palpitations, and edema, Respiratory: Negative for shortness of breath, cough, wheezing, and pleuritic chest pain. 22:23 All other systems are negative. Exam: 22:23 Constitutional: This is a well developed, well nourished patient who is awake, alert, jmm and in no acute distress. 22:23 Eyes: EOMI, no conjunctival erythema appreciated ENT: Moist Mucus Membranes Neck: Trachea midline, Supple Chest/axilla: Normal chest wall appearance and motion. Cardiovascular: Regular rate and rhythm. No edema appreciated Respiratory: Normal respirations, no respiratory distress appreciated Abdomen/GI: Non distended, soft Back: Normal ROM 22:23 Head/face: nasal laceration noted. 22:23 Skin: 1.5 cm laceration noted ot the bridge of the nose. 22:23 Neuro: Orientation: is normal, Mentation: is normal, Memory: is normal. 22:23 Psych: Behavior/mood is pleasant, cooperative. Vital Signs: 21:57 BP 141 / 104; Pulse 100; Resp 18; Temp 98.2; Pulse Ox 100% ; Pain 4/10; ll1 23:21 BP 132 / 88; Pulse 83; Resp 16; Pulse Ox 100% on R/A; Pain 0/10; mt2 Abe Coma Score: 22:00 Eye Response: spontaneous(4). Verbal Response: oriented(5). Motor Response: obeys mt2 commands(6). Total: 15. Trauma Score (Adult): 22:00 Eye Response: spontaneous(1); Verbal Response: oriented(1); Motor Response: obeys mt2 commands(2); Systolic BP: > 89 mm Hg(4); Respiratory Rate: 10 to 29 per min(4); Abe Score: 15; Trauma Score: 12 Laceration: 23:21 Wound Repair of 2cm ( 0.8in ) subcutaneous laceration to bridge of nose. Distal jmm neuro/vascular/tendon intact. Anesthesia: Local anesthetic administered with 2 mls of 1% lidocaine. Wound prep: Moderate cleansing with betadine by me. Skin closed with 4 5-0 Prolene using simple sutures and sterile technique. Patient tolerated well. MDM: 22:21 Patient medically screened. [facility] 23:21 Data reviewed: vital signs, nurses notes. Counseling: I had a detailed discussion with cris the patient and/or guardian regarding: the historical points, exam findings, and any diagnostic results supporting the discharge/admit diagnosis, radiology results, the need for outpatient follow up, to return to the emergency department if symptoms worsen or persist or if there are any questions or concerns that arise at home. ED course: Patient advised to follow up with ent for further evaluation. Patient understood and agrees with the plan of care. . 10/23 22:23 Order name: CT Facial Bones W/O Con [facility] Administered Medications: 22:38 Drug: Tetanus-Diphtheria Toxoid Adult 0.5 ml {Lot Technician: [employer]. Exp: mt2 04/15/2021. Lot #: [id number]. } Route: IM; Site: right deltoid; 23:22 Follow up: Response: No adverse reaction mt2 22:39 Drug: Lidocaine (1 %) 20 ml {Note: to nasal laceration by provider.} Volume: 20 ml; mt2 Route: Infiltration; 23:22 Follow up: Response: No adverse reaction mt2 Disposition: 10/24 19:53 Co-signature as Attending Physician, Marcus Harley MD I agree with the assessment and tw4 plan of care. Disposition: 10/24/19 23:23 Discharged to Home. Impression: Fracture of nasal bones, Facial Laceration. - Condition is Stable. - Discharge Instructions: Facial Laceration, Nasal Fracture. - Prescriptions for Augmentin 875- 125 mg Oral Tablet - take 1 tablet by ORAL route every 12 hours for 10 days; 20 tablet. - Medication Reconciliation Form, Thank You Letter, Antibiotic Education, Prescription Opioid Use, Work release form form. - Follow up: Sandhya Santana MD; When: 2 - 3 days; Reason: Recheck today's complaints, Continuance of care, Re-evaluation by your physician. Signatures: Dispatcher [employer] EDMS Dario Liang PA PA jmm Wadley, Terrence, MD MD tw4 Ketty Garcia RN RN ll1 Florence Thomas RN RN mt2 Corrections: (The following items were deleted from the chart) 10/23 23:30 23:23 10/24/2019 23:23 Discharged to Home. Impression: Fracture of nasal bones; Facial mt2 Laceration. Condition is Stable. Forms are Medication Reconciliation Form, Thank You Letter, Antibiotic Education, Prescription Opioid Use. Follow up: Sandhya Santana; When: 2 - 3 days; Reason: Recheck today's complaints, Continuance of care, Re-evaluation by your physician. cris
--- NOTE | 2019-10-24 23:24 | ER ---
Nurse's Notes [facility] Name: Reid Landers Age: 34 yrs Sex: Male : 1985 Arrival Date: 10/24/2019 Time: 21:55 Bed 4 Private MD: Diagnosis: Fracture of nasal bones;Facial Laceration Presentation: 10/23 21:57 Chief complaint: Patient states: Hit nose with muffler 20 min [employer]OV[employer]LY[employer]. <2cm laceration to ll1 bridge of nose. Coronavirus screen: Client denies travel out of the [place] in the last 14 days. At this time, the client does not indicate any symptoms associated with coronavirus-19. Ebola Screen: Patient denies travel to an Ebola-affected area in the 21 days before illness onset. Initial Sepsis Screen: Does the patient meet any 2 criteria? HR > 90 bpm. Risk Assessment: Do you want to hurt yourself or someone else? Patient reports no desire to harm self or others. Onset of symptoms was October 24, 2019. 21:57 Method Of Arrival: Ambulatory [facility] 21:57 Acuity: CRISTHIAN 4 ll1 22:00 Care prior to arrival: None. Mechanism of Injury: Laceration sustained while working. mt2 Trauma event details: Injury occurred: at home. 22:00 Initial Sepsis Screen: Does the patient have a suspected source of infection? No. mt2 Patient's initial sepsis screen is negative. Trauma Activation: Alert Physician: ED Physician; Name: ; Notified At: ; Arrived At: Physician: General Surgeon; Name: ; Notified At: ; Arrived At: Physician: Radiology; Name: ; Notified At: ; Arrived At: Physician: Respiratory; Name: ; Notified At: ; Arrived At: Physician: Lab; Name: ; Notified At: ; Arrived At: Historical: - Allergies: 21:59 No Known Allergies; ll1 - PSHx: 21:59 None; ll1 - Immunization history:: Last tetanus immunization: unknown, Flu vaccine is not up to date. - Social history:: Smoking status: Patient denies any tobacco usage or history of. Patient/guardian denies using alcohol, street drugs. Screenin:00 Abuse screen: Denies threats or abuse. Nutritional screening: No deficits noted. mt2 Tuberculosis screening: No symptoms or risk factors identified. Fall Risk None identified. Primary Survey: 22:00 NO uncontrolled hemorrhage observed. A: The patient is alert. Airway: patent. mt2 Breathing/Chest: Respiratory pattern: regular, Respiratory effort: spontaneous, unlabored, Breath sounds: clear. Circulation: Cardiac rhythm: sinus rhythm. Disability Alert. Exposure/Environment: Obvious injury(ies) are noted at this time: NASAL LACERATION. 23:19 Reassessment Airway Airway Patent Breathing/Chest Respiratory pattern Regular mt2 Respiratory effort Spontaneous Unlabored Circulation Heart rhythm Sinus rhythm Disability Alert. Assessment: 22:00 Reassessment: Patient and/or family updated on plan of care and expected duration. Pain mt2 level reassessed. Patient is alert, oriented x 3, equal unlabored respirations, skin warm/dry/pink. Patient denies pain at this time. General: Appears in no apparent distress. Behavior is calm, cooperative. Pain: Denies pain. Neuro: No deficits noted. Cardiovascular: No deficits noted. Respiratory: No deficits noted. GI: No deficits noted. : No deficits noted. EENT: NASAL LACERATION. Derm: No deficits noted. Musculoskeletal: No deficits noted. 23:21 Reassessment: Patient and/or family updated on plan of care and expected duration. Pain mt2 level reassessed. Patient is alert, oriented x 3, equal unlabored respirations, skin warm/dry/pink. Patient denies pain at this time. General: Appears in no apparent distress. comfortable, Behavior is calm, cooperative. Vital Signs: 21:57 BP 141 / 104; Pulse 100; Resp 18; Temp 98.2; Pulse Ox 100% ; Pain 4/10; ll1 23:21 BP 132 / 88; Pulse 83; Resp 16; Pulse Ox 100% on R/A; Pain 0/10; mt2 Carbonado Coma Score: 22:00 Eye Response: spontaneous(4). Verbal Response: oriented(5). Motor Response: obeys mt2 commands(6). Total: 15. Trauma Score (Adult): 22:00 Eye Response: spontaneous(1); Verbal Response: oriented(1); Motor Response: obeys mt2 commands(2); Systolic BP: > 89 mm Hg(4); Respiratory Rate: 10 to 29 per min(4); [place] Score: 15; Trauma Score: 12 ED Course: 21:55 Patient arrived in ED. cf2 21:59 Triage completed. ll1 21:59 Arm band placed on Patient placed in an exam room, on a stretcher. ll1 22:00 Patient has correct armband on for positive identification. mt2 22:00 Assist provider with laceration repair Set up tray. Patient did not have IV access mt2 during this emergency room visit. 22:01 Dario Liang PA is PHCP. [facility] 22:01 Marcus Harley MD is Attending Physician. [facility] 22:27 Florence Thomas, RN is Primary Nurse. mt2 22:51 CT Facial Bones W/O Con In Process Unspecified. EDMS 23:20 Patient maintains SpO2 saturation greater than 95% on room air. Thermoregulation: NONE mt2 NEEEDED. 23:23 Sandhya Santana MD is Referral Physician. [facility] Administered Medications: 22:38 Drug: Tetanus-Diphtheria Toxoid Adult 0.5 ml {Tool Operator: [employer]. Exp: mt2 04/15/2021. Lot #: [id number]. } Route: IM; Site: right deltoid; 23:22 Follow up: Response: No adverse reaction mt2 22:39 Drug: Lidocaine (1 %) 20 ml {Note: to nasal laceration by provider.} Volume: 20 ml; mt2 Route: Infiltration; 23:22 Follow up: Response: No adverse reaction mt2 Intake: 22:00 PO: 0ml; Total: 0ml. mt2 Outcome: 23:23 Discharge ordered by . [facility] 23:30 Patient left the ED. mt2 Signatures: Dispatcher [employer] EDMS Dario Liang PA PA Sarah Solano cf2 Ketty Garcia RN RN ll1 Florence Thomas, JUSTYN RN mt2
--- NOTE | 2019-10-25 10:37 | RAD REPORT ---
EXAM DESCRIPTION: CT - Facial Bones W/ Mpr - 10/25/2019 2:09 am CLINICAL HISTORY: Nasal injury TECHNIQUE: Contiguous axial images obtained through the face and paranasal sinuses without IV contra st. Coronal and sagittal reformatted images were provided. This exam was performed according to our departmental dose-optimization program, which includes autom ated exposure control, adjustment of the mA and/or kV according to patient size and/or use of iterati ve reconstruction technique. COMPARISON: None available for comparison FINDINGS: Bones: Mildly angulated bilateral nasal bone fracture deformities. These appear somewhat c orticated. Paranasal sinuses and mastoid air cells: Mild bilateral maxillary, ethmoid, left frontal and sphenoid sinus mucosal thickening. Bilateral maxillary sinus mucous retention cysts/polyps. Orbits: Globes appear intact. No intraconal or extraconal abnormality. Optic nerves appear unremark able. Soft tissues: Bilateral perinasal soft tissue gas. IMPRESSION: Perinasal soft tissue injury. Bilateral nasal bone fractures which appear somewhat corti cated possibly related to remote trauma. Superimposed acute injury is not excluded. Electronically signed by: Jo Ann Byrd MD 10/24/2019 11:14 PM CDT Due to temporary technical issues with the PACS/Fluency reporting system, reports are being signed by the in house radiologist without review as a courtesy to ensure prompt reporting. The interpreting r adiologist is fully responsible for the content of the report.
== END 2019-10-24 23:30 | disposition home or self-care (01) ==
LOC: ER 21:50
PROC: 0JQ10ZZ Repair Face Subcutaneous Tissue and Fascia, Open Approach (ICD-10-PCS; principal; 2019-10-24)
DX: S02.2XXA Fracture of nasal bones, initial encounter for closed fracture (principal); W22.8XXA Striking against or struck by other objects, initial encounter; Y93.9 Activity, unspecified; Y92.9 Unspecified place or not applicable; Z23 Encounter for immunization
CPT/HCPCS: 70486; 76377; 90471; 90714; 99284; G0390

== ENCOUNTER 2021-03-18 23:50 | Emergency (ER) | payer OTHER, SELFPAY ==
--- NOTE | 2021-03-19 02:01 | EDPHYS ---
Physician Documentation [facility] Name: Reid Landers Age: 35 yrs Sex: Male : 1985 Arrival Date: 03/19/2021 Time: 00:04 Bed 6 Private MD: ED Physician Uriel Orellana HPI: 03/19 01:26 This 35 yrs old Male presents to ER via Ambulatory with complaints of pkl Testicular Swelling. 01:26 The patient presents with scrotal pain, of the left side, in the area of the pkl epidydimis, swelling. Onset: The symptoms/episode began/occurred 6 month(s) ago, and became worse today. Historical: - Allergies: : No Known Allergies; mk - Home Meds: : None [Active]; mk - PMHx: : None; mk - Immunization history:: Adult Immunizations up to date. - Social history:: Smoking status: Patient reports the use of cigarette tobacco products, unknown amount. ROS: 01:26 Eyes: Negative for injury, pain, redness, and discharge, ENT: Negative for injury, pkl pain, and discharge, Neck: Negative for injury, pain, and swelling, Cardiovascular: Negative for chest pain, palpitations, and edema, Respiratory: Negative for shortness of breath, cough, wheezing, and pleuritic chest pain, Abdomen/GI: Negative for abdominal pain, nausea, vomiting, diarrhea, and constipation, Back: Negative for injury and pain. 01:26 : Positive for pain and swelling left scrotum. 01: MS/extremity: Negative for acute changes. 01:26 Skin: Negative for rash. 01:26 Neuro: Negative for altered mental status, loss of consciousness. Exam: 01:26 Head/Face: Normocephalic, atraumatic. Eyes: Pupils equal round and reactive to light, pkl extra-ocular motions intact. Lids and lashes normal. Conjunctiva and sclera are non-icteric and not injected. Cornea within normal limits. Periorbital areas with no swelling, redness, or edema. ENT: Nares patent. No nasal discharge, no septal abnormalities noted. Tympanic membranes are normal and external auditory canals are clear. Oropharynx with no redness, swelling, or masses, exudates, or evidence of obstruction, uvula midline. Mucous membranes moist. Neck: Trachea midline, no thyromegaly or masses palpated, and no cervical lymphadenopathy. Supple, full range of motion without nuchal rigidity, or vertebral point tenderness. No Meningismus. Chest/axilla: Normal chest wall appearance and motion. Nontender with no deformity. No lesions are appreciated. Cardiovascular: Regular rate and rhythm with a normal S1 and S2. No gallops, murmurs, or rubs. Normal PMI, no JVD. No pulse deficits. Respiratory: Lungs have equal breath sounds bilaterally, clear to auscultation and percussion. No rales, rhonchi or wheezes noted. No increased work of breathing, no retractions or nasal flaring. Abdomen/GI: Soft, non-tender, with normal bowel sounds. No distension or tympany. No guarding or rebound. No evidence of tenderness throughout. Back: No spinal tenderness. No costovertebral tenderness. Full range of motion. 01:26 : pain and swelling left scrotum. 01:26 Musculoskeletal/extremity: Exam is negative for acute changes. 01:26 Skin: Exam negative for rash. 01:26 Neuro: Orientation: is normal, Mentation: is normal, Cranial nerves: grossly normal, Motor: is normal. Vital Signs: 00:10 BP 128 / 90; Pulse 87; Resp 18; Temp 98.3(O); Pulse Ox 98% on R/A; Weight 93.44 kg; mk Height 5 ft. 8 in. (172.72 cm); 02:24 BP 127 / 89; Pulse 84; Resp 18; Temp 97.4; Pulse Ox 98% ; mk 00:10 Body Mass Index 31.32 (93.44 kg, 172.72 cm) Crockett Coma Score: 02:24 Eye Response: spontaneous(4). Verbal Response: oriented(5). Motor Response: obeys commands(6). Total: 15. MDM: 00:06 Patient medically screened. pkl 01:57 Data reviewed: vital signs, nurses notes, radiologic studies, ultrasound. ED course: pkl Discussed imaging studies with patient. Advised to follow up with Urologist in 2 to 3 days. Patient understood instructions. 03/19 00:30 Order name: US Scrotum Testicles pkl Administered Medications: No medications were administered Disposition Summary: 03/19/21 02:01 Discharge Ordered Location: Home pkl Problem: new pkl Symptoms: are unchanged pkl Condition: Stable pkl Diagnosis - Left - sided varicocele. Trace right hydrocele pkl Followup: pkl - With: Manny Main MD - When: 2 - 3 days - Reason: Re-evaluation by your physician Forms: - Medication Reconciliation Form pkl - Thank You Letter pkl - Antibiotic Education pkl - Prescription Opioid Use pkl Signatures: Dispatcher [employer] Uriel More MD MD pkl Karen Cross, RN RN mk
--- NOTE | 2021-03-19 02:01 | ER ---
Nurse's Notes [facility] Name: Reid Landers Age: 35 yrs Sex: Male : 1985 Arrival Date: 03/19/2021 Time: 00:04 Bed 6 Private MD: Diagnosis: Left - sided varicocele. Trace right hydrocele Presentation: 03/19 00:10 Chief complaint: Patient states: Pt reports "I have been having swelling on my right mk testicle and I think I saw it move". States it has chronically been swollen but x1 day it has been worse. Denies pmhx. Coronavirus screen: Vaccine status: Patient reports being unvaccinated. Ebola Screen: Patient negative for fever greater than or equal to 101.5 degrees Fahrenheit, and additional compatible Ebola Virus Disease symptoms. Initial Sepsis Screen: Does the patient meet any 2 criteria? No. Patient's initial sepsis screen is negative. Does the patient have a suspected source of infection? No. Patient's initial sepsis screen is negative. Risk Assessment: Do you want to hurt yourself or someone else? Patient reports no desire to harm self or others. Onset of symptoms was March 18, 2021. 00:10 Method Of Arrival: Ambulatory 00:10 Acuity: CRISTHIAN 4 Triage Assessment: 01:26 General: Appears in no apparent distress. Behavior is calm, cooperative. 01:26 Neuro: Level of Consciousness is awake, alert, obeys commands, Oriented to person, place, time, situation. Cardiovascular: Denies Heart tones S1 S2 present Capillary refill < 3 seconds in bilateral fingers toes JVD is absent Patient's skin is warm and dry. Pulses are 2+ in right radial artery and left radial artery. 02:23 Pain: Denies pain. Historical: - Allergies: 01:26 No Known Allergies; - Home Meds: : None [Active]; - PMHx: : None; - Immunization history:: Adult Immunizations up to date. - Social history:: Smoking status: Patient reports the use of cigarette tobacco products, unknown amount. Screenin:23 Abuse screen: Denies threats or abuse. Nutritional screening: No deficits noted. Tuberculosis screening: No symptoms or risk factors identified. Fall Risk No fall in past 12 months (0 pts). No secondary diagnosis (0 pts). No IV (0 pts). Ambulatory Aid- None/Bed Rest/Nurse Assist (0 pts). Gait- Normal/Bed Rest/Wheelchair (0 pts) Mental Status- Oriented to own ability (0 pts). Total Guevara Fall Scale indicates No Risk (0-24 pts). Assessment: 01:26 General: Appears in no apparent distress. Pain: Denies pain. Neuro: Level of Consciousness is awake, alert, obeys commands, Oriented to person, place, time, situation, [employer] Container Winding Operator are equal bilaterally Gait is steady, Speech is normal, Facial symmetry appears normal. Cardiovascular: Heart tones S1 S2 Capillary refill < 3 seconds in bilateral Pulses are 2+ in right radial artery, right dorsalis pedis artery, left radial artery and left dorsalis pedis artery. Respiratory: Airway is patent Trachea midline Respiratory effort is even, unlabored, Respiratory pattern is regular, symmetrical. GI: Abdomen is flat, non-distended. : Reports Scrotal pain: sudden onset ongoing swelling to testicles but this evening testicular pain worse. Derm: Skin is intact, is healthy with good turgor, Skin is dry, Skin is pink, warm \\T\\ dry. Skin temperature is warm. 02:24 Reassessment: Patient appears in no apparent distress at this time. No changes from previously documented assessment. Patient and/or family updated on plan of care and expected duration. Pain level reassessed. Vital Signs: 00:10 BP 128 / 90; Pulse 87; Resp 18; Temp 98.3(O); Pulse Ox 98% on R/A; Weight 93.44 kg; Height 5 ft. 8 in. (172.72 cm); 02:24 BP 127 / 89; Pulse 84; Resp 18; Temp 97.4; Pulse Ox 98% ; mk 00:10 Body Mass Index 31.32 (93.44 kg, 172.72 cm) Bolivar Coma Score: 02:24 Eye Response: spontaneous(4). Verbal Response: oriented(5). Motor Response: obeys commands(6). Total: 15. ED Course: 00:04 Patient arrived in ED. es 00:06 Uriel Orellana MD is Attending Physician. pkl 00:43 Karen Cross, RN is Primary Nurse. mk 00:46 Triage completed. mk 01:07 US Scrotum Testicles In Process Unspecified. EDMS 01:26 Arm band placed on. mk 01:26 Patient has correct armband on for positive identification. Allergy band placed. Fall mk risk band placed. Bed in low position. Call light in reach. Side rails up X 1. Pulse ox on. NIBP on. 01:59 Manny Main MD is Referral Physician. pkl 02:23 No provider procedures requiring assistance completed. Patient did not have IV access during this emergency room visit. Administered Medications: No medications were administered Outcome: 02:01 Discharge ordered by . pkl 02:23 Discharged to home mk 02:23 Condition: stable 02:23 Discharge instructions given to patient. 02:27 Patient left the ED. Signatures: Dispatcher [employer] Uriel More MD MD pkl Salyer, Edna es Kotarski, Madeline RN RN elena Corrections: (The following items were deleted from the chart) 02:25 02:23 General: Appears in no apparent distress. Behavior is calm, cooperative, [facility]
[2021-03-19 03:07] VITALS: O2SAT 98
[2021-03-19 03:09] VITALS: BP 127/89; TEMP 97.4
--- NOTE | 2021-03-19 14:26 | RAD REPORT ---
EXAM DESCRIPTION: US - Scrotum Testicles - 03/19/2021 1:59 am CLINICAL HISTORY: 35 years Male swelling left scrotum TECHNIQUE: Sagittal and transverse ultrasound imaging and measurement of bilateral testicles with co ammy flow was performed on 03/19/2021 at 12: 51 AM.Comparison: None. FINDINGS: The right testicle measures 4.3 x 2.9 x 2.2 cm and is homogeneous in echogenicity. No fo matias masses are identified. The right epididymal head measures 1.2 x 0.8 x 1.0 cm. Doppler imaging demonstrates normal flow in the right testicle. There is a trace right hydrocele. There is no eviden ce of a right sided varicocele.The left testicle measures 3.4 x 2.5 x 1.9 cm and is homogeneous in ec hogenicity. No focal masses are identified. The left epididymal head measures 1.2 x 0.8 x 0.8 cm. D oppler imaging demonstrates normal flow in the left testicle. There is no evidence of a left hydrocel e. There is dilatation of the venous structures within the pampiniform plexus particularly during Promise kassi measuring up to 3.5 mm in diameter consistent with a varicocele. IMPRESSION: 1. Left-sided varicocele.2. Trace right hydrocele.3. Otherwise, unremarkable sonographic evaluation of the testicles. There is no evidence to suggest testicular torsion or other acute abnor mality. Electronically signed by: Lala Roca DO 03/19/2021 1:41 AM CHECKING CLERK Due to temporary technical issues with the PACS/Fluency reporting system, reports are being signed by the in house radiologists without review as a courtesy to insure prompt reporting. The interpreting radiologist is fully responsible for the content of the report.
== END 2021-03-19 02:27 | disposition home or self-care (01) ==
LOC: ER 23:50
DX: I86.1 Scrotal varices (principal); N43.3 Hydrocele, unspecified; Z72.0 Tobacco use
CPT/HCPCS: 76870

== ENCOUNTER 2021-09-09 09:07 | Emergency (ER) | payer SELFPAY ==
--- NOTE | 2021-09-09 10:10 | RAD REPORT ---
EXAM DESCRIPTION: RAD - Humerus Right - 09/09/2021 9:47 am CLINICAL HISTORY: PAIN COMPARISON: No comparisons FINDINGS: No fracture or dislocation is seen. Prominent soft tissue accumulation in the reason of th e biceps probably indicates biceps tendon rupture at the elbow.
--- NOTE | 2021-09-09 10:33 | ER ---
Nurse's Notes [facility] Name: Reid Landers Age: 35 yrs Sex: Male : 1985 Arrival Date: 09/09/2021 Time: 09:07 Bed 10 Private MD: Diagnosis: Unspecified injury of muscle, fascia and tendon of other parts of biceps, right arm, initial encounter Presentation: 09/09 09:33 Chief complaint: Patient states: he was assisting a friend lift an air conditioning ap3 unit when he heard a pop and felt what he believes to be a tear in his right upper arm. Patient presents to the ED with right upper arm pain. Coronavirus screen: At this time, the client does not indicate any symptoms associated with coronavirus-19. Ebola Screen: No symptoms or risks identified at this time. Initial Sepsis Screen: Does the patient meet any 2 criteria? No. Patient's initial sepsis screen is negative. Does the patient have a suspected source of infection? No. Patient's initial sepsis screen is negative. Risk Assessment: Do you want to hurt yourself or someone else? Patient reports no desire to harm self or others. Onset of symptoms was September 09, 2021. 09:33 Method Of Arrival: Ambulatory ap3 09:33 Acuity: CRISTHIAN 4 ap3 Triage Assessment: 09:35 General: Appears uncomfortable, Behavior is calm, cooperative. Pain: Complains of pain ap3 in right bicep Pain began suddenly, 1 hour ago. Neuro: Level of Consciousness is awake, alert, obeys commands, Oriented to person, place, time, situation, Speech is normal. Cardiovascular: Patient's skin is warm and dry. Respiratory: Airway is patent. Musculoskeletal: Range of motion: limited in right bicep. Historical: - Allergies: 09:34 No Known Allergies; ap3 - Home Meds: 09:34 None [Active]; ap3 - PMHx: 09:34 None; ap3 - Immunization history:: Client reports having NOT received the Covid vaccine. Last tetanus immunization: unknown. - Social history:: Smoking status: Patient denies any tobacco usage or history of. Screenin:36 Abuse screen: Denies threats or abuse. Nutritional screening: No deficits noted. ap3 Tuberculosis screening: No symptoms or risk factors identified. 10:27 Fall Risk None identified. ss Assessment: 10:27 General: Appears in no apparent distress. comfortable, Behavior is calm, cooperative, ss Pt is eating chips at this time. Family member at bedside . Pain: Complains of pain in right bicep Pain Quality of pain is described as aching, tender, Pain began suddenly, Is continuous. Neuro: Level of Consciousness is awake, alert, obeys commands, Oriented to person, place, time, situation, It Support Specialist are equal bilaterally Speech is normal, Facial symmetry appears normal, Pupils are PERRLA. Cardiovascular: Capillary refill < 3 seconds is brisk in bilateral fingers Patient's skin is warm and dry. Cardiovascular: Pulses are palpable in right radial artery and left radial artery. Respiratory: Airway is patent Respiratory effort is even, unlabored, Respiratory pattern is regular, symmetrical. GI: No signs and/or symptoms were reported involving the gastrointestinal system. Derm: Skin is intact, is healthy with good turgor, Skin is dry, Skin is pink, warm \T\ dry. normal. 10:27 Reassessment: Deformity noted to R bicep. ss Vital Signs: 09:33 BP 143 / 103; Pulse 78; Resp 17; Temp 98.2; Pulse Ox 98% ; Weight 90.72 kg; Height 5 ap3 ft. 8 in. (172.72 cm); Pain 9/10; 09:33 Body Mass Index 30.41 (90.72 kg, 172.72 cm) ap3 ED Course: 09:07 Patient arrived in ED. mr 09:31 [facility] jmm 09:31 Steve Yu MD is Attending Physician. jmm 09:34 Triage completed. ap3 09:36 Arm band placed on left wrist. ap3 09:48 Humerus Right XRAY In Process Unspecified. EDMS 10:27 Candice Underwood, RN is Primary Nurse. ss 10:27 Patient has correct armband on for positive identification. Bed in low position. Call ss light in reach. 10:30 Hakeem Rodriguez MD is Referral Physician. jmm 10:49 No provider procedures requiring assistance completed. Patient did not have IV access ss during this emergency room visit. Sling applied to right arm. Administered Medications: No medications were administered Medication: 10:27 VIS not applicable for this client. ss Outcome: 10:32 Discharge ordered by . jmm 10:49 Discharged to home ambulatory. ss 10:49 Condition: good 10:49 Discharge instructions given to patient, family, Instructed on discharge instructions, follow up and referral plans. medication usage, Demonstrated understanding of instructions, follow-up care, medications, Prescriptions given X 1. 10:49 Patient left the ED. ss Signatures: Dispatcher [employer] EDMS Dario Liang PA PA jmm Rukhsana Yuen mr Candice Underwood RN RN Marion Villarreal RN RN ap3 Corrections: (The following items were deleted from the chart) 10:35 10:27 Warm blanket given. ss ss 10:49 10:27 Pain: Complains of pain in right bicep Pain Quality of pain is described as ss aching, tender, Is continuous, ss
--- NOTE | 2021-09-09 10:33 | EDPHYS ---
Physician Documentation [facility] Name: Reid Landers Age: 35 yrs Sex: Male : 1985 Arrival Date: 09/09/2021 Time: 09:07 Bed 10 Private MD: ED Physician Steve Yu HPI: 09/09 09:33 This 35 yrs old Male presents to ER via Unassigned with complaints of Arm jmm Injury. 09:33 The patient or guardian complains of injury, pain. The complaints affect the right jmm bicep. Onset: The symptoms/episode began/occurred acutely. Patient complains of right arm pain after lifting an AC unit. States he felt a rip. Deformity noted to the right bicep. . Historical: - Allergies: 09:34 No Known Allergies; ap3 - Home Meds: 09:34 None [Active]; ap3 - PMHx: 09:34 None; ap3 - Immunization history:: Client reports having NOT received the Covid vaccine. Last tetanus immunization: unknown. - Social history:: Smoking status: Patient denies any tobacco usage or history of. ROS: 09:33 Constitutional: Negative for fever, chills, and weight loss, Cardiovascular: Negative jmm for chest pain, palpitations, and edema, Respiratory: Negative for shortness of breath, cough, wheezing, and pleuritic chest pain. 09:33 MS/extremity: Positive for injury or acute deformity. 09:33 All other systems are negative. Exam: 09:33 Constitutional: This is a well developed, well nourished patient who is awake, alert, jmm and in no acute distress. Head/Face: atraumatic. Eyes: EOMI, no conjunctival erythema appreciated ENT: Moist Mucus Membranes Neck: Trachea midline, Supple Chest/axilla: Normal chest wall appearance and motion. Cardiovascular: Regular rate and rhythm. No edema appreciated Respiratory: Normal respirations, no respiratory distress appreciated Abdomen/GI: Non distended Back: Normal ROM Skin: General appearance color normal 09:33 Musculoskeletal/extremity: deformity noted to the right arm, full radial pulse, compartments are soft, full director of field coordination strength, NVI. 09:33 Skin: Appearance: Color: normal in color. 09:33 Neuro: Orientation: is normal, Mentation: is normal, Memory: is normal. 09:33 Psych: Behavior/mood is pleasant, cooperative. Vital Signs: 09:33 BP 143 / 103; Pulse 78; Resp 17; Temp 98.2; Pulse Ox 98% ; Weight 90.72 kg; Height 5 ap3 ft. 8 in. (172.72 cm); Pain 11/09; 09:33 Body Mass Index 30.41 (90.72 kg, 172.72 cm) ap3 MDM: 09:33 Patient medically screened. [facility] 10:30 Data reviewed: vital signs, nurses notes. Counseling: I had a detailed discussion with [facility] the patient and/or guardian regarding: the historical points, exam findings, and any diagnostic results supporting the discharge/admit diagnosis, radiology results, the need for outpatient follow up, to return to the emergency department if symptoms worsen or persist or if there are any questions or concerns that arise at home. ED course: Patient advised to follow up with ortho for further evaluation. patient understood and agrees with the plan of care. . 09/09 09:33 Order name: Humerus Right XRAY; Complete Time: 10:[address] [facility] 09/09 10:24 Order name: Sling; Complete Time: 10:[address] [facility] Administered Medications: No medications were administered Disposition: 18:24 Co-signature as Attending Physician, Steve Yu MD. rn Disposition Summary: 09/09/21 10:32 Discharge Ordered Location: Home [facility] Condition: Stable [facility] Diagnosis - Unspecified injury of muscle, fascia and tendon of other parts of biceps, right [facility] arm, initial encounter Followup: [facility] - With: Hakeem Rodriguez MD - When: 2 - 3 days - Reason: Recheck today's complaints, Continuance of care, Re-evaluation by your physician Discharge Instructions: - Discharge Summary Sheet [facility] - Proximal Biceps Tendon Tear [facility] Forms: - Medication Reconciliation Form [facility] - Thank You Letter [facility] - Antibiotic Education [facility] - Prescription Opioid Use [facility] Prescriptions: - orphenadrine citrate 100 mg Oral Tablet Sustained Release - take 1 tablet by ORAL route 2 times per day As needed; 20 tablet; Refills: 0, [facility] Product Selection Permitted Signatures: Dispatcher [employer] EDMS Dario Liang PA PA [facility] Steve Yu MD MD rn Prokisch, Amanda, RN RN ap3
[2021-09-09 11:02] VITALS: BP 143/103; TEMP 98.2; O2SAT 98
== END 2021-09-09 10:49 | disposition home or self-care (01) ==
LOC: ER 09:07
DX: S46.801A Unspecified injury of other muscles, fascia and tendons at shoulder and upper arm level, right arm, initial encounter (principal)
CPT/HCPCS: 99283

== ENCOUNTER 2022-02-25 16:31 | Emergency (ER) | payer SELFPAY ==
--- OUTSIDE RECORDS SUMMARY | 2022-02-25 16:36 | XMS REPORT | Continuity of Care Document ---
:1985 Author Organization [facility] t Address [address] [place] [address] Care Team Providers Name Role Phone Pcp, Patient Does Not Have A Primary Care Physician +[id number] BINU MCGINNIS Attending Clinician Unavailable Binu Sandoval Attending Clinician Doctor Unassigned, [place] Attending Clinician Unavailable Problems Condition Condition Condition Status Onset Resolution Last Treating Co mments Source Name Details Category Date Date Treatment Clinician Date No known No known Disease Unive rs active active ity of problems problems [facility] Allergies, Adverse Reactions, Alerts Allergy Allergy Status Severity Reaction(s) Onset Inactive Treating Comm ents Source Name Type Date Date Clinician NO KNOWN Drug Active Univers ALLERGIE Class ity of S [facility] Social History Social Habit Start Date Stop Date Quantity Comments Source Exposure to 2021-11-02 2021-11-12 Not sure [facility]-CoV-2 00:00:00 15:19:00 [facility] (event) [place] Alcohol intake 2021-11-12 2021-11-12 Lifetime University of 00:00:00 00:00:00 non-drinker [facility] (finding) [place] Tobacco use and 2021-10-08 2021-10-08 Smokeless tobacco Un iversity of exposure 00:00:00 00:00:00 non-user [facility] Sex Ass[birth year] At [birth year] Universit y of 00:00:00 00:00:00 [facility] Smoking Status Start Date Stop Date Source Never smoked tobacco [facility] Medications Ordered Filled Start Stop Current Ordering Indication Dosage Frequency Signature Comments Components Source Medication Medication Date Date Medication? Clinician (SIG) Name Name suecinmalcolm 2021- No [id number] 40mg Univers ne 11-12 ity of acetonide 23:30: 22:21 [place] (KENALOG) 00 :00 Medical injection Branch 40 mg triamcinolo 2021- No [id number] 40mg 40 mg, [facility] ne 11-12 Intramuscu ity of acetonide 23:30: 22:21 [place]CE, [place] ([place] 00 :00 1 dose, On Medi matias injection Tue Branch 40 mg 11/12/21 at 1830, Routine No known No No known Unive rs medications 11-12 medication it y of 15:35: s [address] No known No No known Unive rs medications 11-12 medication it y of 15:35: s [address] No known No No known Unive rs medications 11-12 medication it y of 15:35: s [address] No known No No known Unive rs medications 11-12 medication it y of 15:35: s [address] Vital Signs Vital Name Observation Time Observation Value Comments Source Systolic blood 2021-11-12 21:05:00 148 mm[Hg] Univer sity [facility] pressure [facility] Diastolic blood 2021-11-12 21:05:00 92 mm[Hg] Unive rsity [facility] pressure [facility] Heart rate 2021-11-12 21:05:00 102 /min [facility] Oxygen saturation 2021-11-12 21:05:00 99 /[facility] Br anch by Pulse oximetry Body weight 2021-11-12 20:34:00 94.484 kg [facility] BMI 2021-11-12 20:34:00 31.67 kg/m2 [facility] Procedures Procedure Date / Time Performing Clinician Source Performed PATIENT FINANCIAL 2021-11-15 05:01:00 Doctor Unassigned, [facility] RESPONSIBILITY - ALL [place] [facility] Bra count includes the [facility] FORMS Encounters Start End Encounter Admission Attending Care Care Encounter Source Date/Time Date/Time Type Type Clinicians Facility Department ID 2021-12-26 2021-12-26 Outpatient RIVERA KUMAR [facility] [id number] Univers 11:15:00 11:15:00 BINU [facility] 2021-12-25 2021-12-25 [facility] [id number] Univers 00:00:00 00:00:00 (Out) Binu S HEALTH [id number] it y of [place] [id number] Jigar as JONELLE?BLEA [phone] Ne daniel MORATAYA [address] [place] MEDICAL OFFICE [facility] 2021-12-12 2021-12-12 [facility] [id number] Univers 08:15:00 08:15:00 BINU [facility] 2021-12-11 2021-12-11 [facility] [id number] Univers 00:00:00 00:00:00 (Out) Binu S HEALTH [id number] it y of [place] [id number] Jigar as JONELLE?BLEA [id number] Ne daniel VALDERRAMA 198 [facility] OFFICE [facility] 2021-11-15 2021-11-15 Orders Doctor AIMEE 1.2.840.114 [id number] Univers 00:00:00 00:00:00 Only Unassigned, RICK [id number] ity of [place] [facility] [id number] Jigar as [id number] [address] 2021-11-15 2021-11-15 [facility] [id number] Univers 00:00:00 00:00:00 (Out) Binu S HEALTH [id number] it y of [place] [id number] Jigar as JONELLE?BLEA [id number] Ne daniel MORATAYA [address] [place] [address] OFFICE [facility] 2021-11-12 2021-11-12 [facility] [id number] Univers 15:30:00 17:26:04 [facility] 2021-11-12 2021-11-12 [facility] [id number] [id number] Univers 15:30:00 17:26:04 Visit Binu S HEALTH [id number] it y of [place] 4.2.7.2.686 Jigar as JONELLE?BLEA [phone] Ne daniel MORATAYA 198 [facility] OFFICE [facility] 2021-11-12 2021-11-12 [facility] [id number] Univers 15:30:00 15:30:00 BINU ity [facility] 2021-10-23 2021-10-23 [facility] [id number] Univers 16:00:00 16:00:00 BINU ity [facility] 2021-10-23 2021-10-23 [facility] [id number] Univers 08:30:00 08:30:00 BINU [facility] 2021-10-21 2021-10-21 Letter [facility] 1.2.840.114 [id number] Univers 00:00:00 00:00:00 (Out) Binu S HEALTH 350.1.13.10 it y of [place] 4.2.7.2.686 Jigar as JONELLE?BLEA [phone] Ne daniel MORATAYA 198 [facility] 2021-10-17 2021-10-17 Letter [facility] 1.2.840.114 [id number] Univers 00:00:00 00:00:00 (Out) Binu S HEALTH 350.1.13.10 it y of [place] 4.2.7.2.686 Jigar as JONELLE?BLEA [phone] Ne daniel MORATAYA [address] [place] [address] OFFICE [facility] 2021-10-09 2021-10-09 Telephone [facility] [id number] Univers 00:00:00 00:00:00 Binu S HEALTH 350.1.13.10 it y of [place] 4.2.7.2.686 Jigar as JONELLE?BLEA [phone] Ne daniel MORATAYA [address] [place] [address] OFFICE [facility] 2021-10-08 2021-10-08 [facility] [id number] Univers 15:00:00 16:27:42 BINU ity [facility] 2021-10-08 2021-10-08 Office Tiffani [facility] [id number] [id number] Univers 15:00:00 16:27:42 Visit Binu S [facility] [id number] [facility] [id number] Jigar as JONELLE?BLEA [phone] Ne daniel MORATAYA [address] [place] [facility] 2021-10-08 2021-10-08 Letter Tiffani [facility] [id number] [id number] Univers 00:00:00 00:00:00 (Out) Binu S HEALTH [id number] [facility] 4.2.7.2.686 Jigar as JONELLE?BLEA [phone] Ne daniel VALDERRAMACARLOS [address] [place] [facility] 2021-10-08 2021-10-08 Orders Doctor AIMEE [id number] [id number] Univers 00:00:00 00:00:00 Only Unassigned, RICK 350.1.13.10 ity of [place] [facility] 4.2.7.2.686 Jigar as [phone] [place] [address] Branch Results This patient has no known results.
--- NOTE | 2022-02-25 17:21 | RAD REPORT ---
EXAM DESCRIPTION: CT - CTHCSPWOC - 02/25/2022 4:59 pm CLINICAL HISTORY: Trauma, head and neck injury. radicular COMPARISON: No comparisons TECHNIQUE: Axial 5 mm thick images of the head were obtained. Axial 2 mm thick images of the cervical spine were obtained with sagittal and coronal reconstruction images generated and reviewed. All CT scans are performed using dose optimization technique as appropriate and may include automated exposure control or mA/KV adjustment according to patient size. FINDINGS: CT HEAD WITHOUT CONTRAST: No acute hemorrhage, hydrocephalus or extra-axial collection is identified.No areas of brain edema or midline shift. Trace left maxillary sinus thickening.The calvarium is intact. CT CERVICAL SPINE WITHOUT CONTRAST: No fracture or subluxation.No prevertebral soft tissues swelling is identified. IMPRESSION: No acute intracranial or cervical spine findings.
--- NOTE | 2022-02-25 17:28 | RAD REPORT ---
EXAM DESCRIPTION: RAD - Chest Single View - 02/25/2022 5:10 pm CLINICAL HISTORY: COUGH COMPARISON: Chest Pa And Lat (2 Views) dated 06/21/2018; Chest Pa And Lat (2 Views) dated 03/07/2018; C hest Pa And Lat (2 Views) dated 01/29/2017 FINDINGS: Lines: None. Lungs: There is likely some atelectasis as result of left hemidiaphragm elevation. No evidence of a c onsolidative airspace disease or edema is present. Pleural: No significant pleural effusions or pneumothorax. Cardiac: The heart size is within normal limits. Mediastinum: Within normal limits. Bones: No acute fractures. Other: None IMPRESSION: Probable mild left basilar atelectasis. No evidence of a consolidative pneumonia or melanie a.
--- NOTE | 2022-02-25 19:07 | RAD REPORT ---
EXAM DESCRIPTION: RAD - Shoulder Left 2 View - 02/25/2022 6:48 pm CLINICAL HISTORY: PAIN COMPARISON: No comparisons FINDINGS/IMPRESSION: No acute fracture. No malalignment. No significant focal degenerative changes.
[2022-02-25 19:43] LABS: Absolute Lymphocytes (CBC) 2.1 K/uL (0.7-4.9); Hematocrit 43.2 % (39.6-49.0); Lymphocytes % 27.6 % (15.3-44.8); MPV 8.2 fL (7.6-11.3); RBC Red Blood Cell Count 4.97 M/uL (4.33-5.43)
[2022-02-25 19:44] LABS: Protime INR 1.07
[2022-02-25 20:02] LABS: Albumin 4.1 g/dL (3.4-5.0); Bilirubin Direct 0.1 mg/dL (0-0.2); Bilirubin Total 0.5 mg/dL (0.2-1.0); Magnesium 2.5 mg/dL (1.6-2.4); Potassium 3.7 mmol/L (3.5-5.1); Protein, Total 7.9 g/dL (6.4-8.2); Troponin High Sensitivity 4.9 pg/mL (<58.9)
--- NOTE | 2022-02-25 20:17 | ER ---
Nurse's Notes [facility] Name: Reid Landers Age: 36 yrs Sex: Male : 1985 Arrival Date: 02/25/2022 Time: 16:33 Bed 12 Private MD: Diagnosis: Unspecified symptoms and signs involving the musculoskeletal system;Pain in left shoulder;Cervical disc disorder with radiculopathy, cervicothoracic region Presentation: 02/25 17:17 Chief complaint: Patient states: L shoulder/arm pain numbness for 1.5 months after ll1 lifting heavy equipment. States he tore his R bicep at this time, but that feels better now. L side still bothersome. Coronavirus screen: Vaccine status: Client denies travel out of the [place] in the last 14 days. At this time, the client does not indicate any symptoms associated with coronavirus-19. Ebola Screen: Patient denies travel to an Ebola-affected area in the 21 days before illness onset. Initial Sepsis Screen: Does the patient meet any 2 criteria? No. Patient's initial sepsis screen is negative. Does the patient have a suspected source of infection? No. Patient's initial sepsis screen is negative. Risk Assessment: Do you want to hurt yourself or someone else? Patient reports no desire to harm self or others. Onset of symptoms was December 31, 2021. 17:17 Method Of Arrival: Ambulatory ll1 17:17 Acuity: CRISTHIAN 4 ll1 Triage Assessment: 17:19 General: Appears in no apparent distress. Behavior is calm, cooperative, appropriate ll1 for age. Pain: Complains of pain in left arm Pain currently is 3 out of 10 on a pain scale. Quality of pain is described as aching. Musculoskeletal: Circulation, motion, and sensation intact. Capillary refill < 3 seconds, Reports numbness in left arm pain in left arm. Historical: - Allergies: 17:19 No Known Allergies; ll1 - PMHx: 17:19 None; ll1 - PSHx: 17:19 None; ll1 - Immunization history:: Client reports having NOT received the Covid vaccine. - Social history:: Smoking status: Patient denies any tobacco usage or history of. Screenin:51 [facility] ED Fall Risk Assessment (Adult) History of falling in the last 3 months, tw5 including since admission. Abuse screen: Denies threats or abuse. Denies injuries from another. Nutritional screening: No deficits noted. Tuberculosis screening: No symptoms or risk factors identified. Assessment: 20:40 General: Reports "About a month ago I stopped being able to lift left arm. If I lift it tw5 it goes numb then falls and then my right arm feels like pins and needles.". Neuro: Level of Consciousness is awake, alert, obeys commands. Cardiovascular: No deficits noted. Respiratory: Airway is patent Trachea midline Respiratory effort is even, unlabored. GI: No deficits noted. Vital Signs: 17:17 BP 161 / 102; Pulse 100; Resp 17; Temp 98.6; Pulse Ox 100% ; Weight 92.08 kg; Height 5 ll1 ft. 8 in. (172.72 cm); Pain 10/10; 20:51 BP 147 / 92; Pulse 83; Resp 18; Pulse Ox 100% on R/A; tw5 17:17 Body Mass Index 30.87 (92.08 kg, 172.72 cm) ll1 ED Course: 16:33 Patient arrived in ED. as 16:42 Ed Farrell MD is Attending Physician. sona 17:01 CT Head C Spine In Process Unspecified. EDMS 17:12 XRAY Chest (1 view) In Process Unspecified. EDMS 17:19 Triage completed. ll1 17:19 Arm band placed on. ll1 18:49 Shoulder Left (2 View) XRAY In Process Unspecified. EDMS 19:13 Dario Liang PA is PHCP. [facility] 19:30 Lali Rojas is Primary Nurse. tw5 19:40 Initial lab(s) drawn, by ia, sent to lab. Inserted saline lock: 22 gauge in right mb4 antecubital area, using aseptic technique. Blood collected. 20:16 Hipolito Moctezuma MD is Referral Physician. m 20:44 EKG done, by ED staff, reviewed by Dario FUENTES. as7 20:51 Patient has correct armband on for positive identification. Placed in gown. Bed in low tw5 position. Call light in reach. Side rails up X 1. machine baster on. Pulse ox on. NIBP on. 20:51 No provider procedures requiring assistance completed. IV discontinued, intact, tw5 bleeding controlled, No redness/swelling at site. Pressure dressing applied. Administered Medications: 20:43 Drug: NS 0.9% 1000 ml Route: IV; Rate: 125 ml/hr; Site: right antecubital; tw5 20:53 Follow up: IV Status: Order to discontinue infusion; IV Intake: 200ml tw5 20:45 Drug: Aspirin Chewable Tablet 162 mg Route: PO; tw5 20:53 Follow up: Response: No adverse reaction tw5 20:46 Not Given (Patient Refused): Valium (diazepam) 5 mg PO once tw5 20:48 Drug: Decadron - Dexamethasone 10 mg Route: IVP; Site: right antecubital; tw5 20:52 Follow up: Response: No adverse reaction tw5 20:49 Drug: Ketorolac 30 mg Route: IVP; Site: right antecubital; tw5 20:53 Follow up: Response: No adverse reaction tw5 20:49 Not Given (Patient Refused): [place] (HYDROcodone-acetaminophen) 10 mg-325 mg 1 tabs PO tw5 once Medication: 20:51 VIS not applicable for this client. tw5 Intake: 20:53 IV: 200ml; Total: 200ml. tw5 Outcome: 20:16 Discharge ordered by . cris 20:51 Discharged to home ambulatory. tw5 20:51 Condition: good 20:51 Discharge instructions given to patient, Instructed on discharge instructions, follow up and referral plans. Demonstrated understanding of instructions, follow-up care, medications, Prescriptions given X 3. 20:53 Patient left the ED. tw5 Signatures: Dispatcher [employer] EDEd Casas MD MD cha Mickail, Joel, PA PA jmm Martinez, Amelia as Baxter, Mackenzie mb4 Ketty Garcia RN RN ll1 Lali Rojas tw5 Rivka Gray as7
--- NOTE | 2022-02-25 20:17 | EDPHYS ---
Physician Documentation [facility] Name: Reid Landers Age: 36 yrs Sex: Male : 1985 Arrival Date: 02/25/2022 Time: 16:33 Bed 12 Private MD: ED Physician Ed Farrell HPI: 02/25 18:29 This 36 yrs old Male presents to ER via Ambulatory with complaints of Numbness sona Of Arm. Historical: - Allergies: 17:19 No Known Allergies; ll1 - PMHx: 17:19 None; ll1 - PSHx: 17:19 None; ll1 - Immunization history:: Client reports having NOT received the Covid vaccine. - Social history:: Smoking status: Patient denies any tobacco usage or history of. ROS: 18:31 Constitutional: Negative for fever, chills, and weight loss, Eyes: Negative for injury, sona pain, redness, and discharge, ENT: Negative for injury, pain, and discharge, Cardiovascular: Negative for chest pain, palpitations, and edema, Respiratory: Negative for shortness of breath, cough, wheezing, and pleuritic chest pain, Abdomen/GI: Negative for abdominal pain, nausea, vomiting, diarrhea, and constipation, Back: Negative for injury and pain, : Negative for injury, bleeding, discharge, and swelling, Skin: Negative for injury, rash, and discoloration, Neuro: Negative for headache, weakness, numbness, tingling, and seizure, Psych: Negative for depression, anxiety, suicide ideation, homicidal ideation, and hallucinations, Allergy/Immunology: Negative for hives, rash, and allergies, Endocrine: Negative for neck swelling, polydipsia, polyuria, polyphagia, and marked weight changes, Hematologic/Lymphatic: Negative for swollen nodes, abnormal bleeding, and unusual bruising. 18:31 Neck: Positive for pain with movement, stiffness. 18:31 MS/extremity: Positive for decreased range of motion, tenderness, of the anterior aspect of left shoulder and posterior aspect of left shoulder. Exam: 18:31 Constitutional: This is a well developed, well nourished patient who is awake, alert, sona and in no acute distress. Head/Face: Normocephalic, atraumatic. Eyes: Pupils equal round and reactive to light, extra-ocular motions intact. Lids and lashes normal. Conjunctiva and sclera are non-icteric and not injected. Cornea within normal limits. Periorbital areas with no swelling, redness, or edema. ENT: Nares patent. No nasal discharge, no septal abnormalities noted. Tympanic membranes are normal and external auditory canals are clear. Oropharynx with no redness, swelling, or masses, exudates, or evidence of obstruction, uvula midline. Mucous membranes moist. Neck: Trachea midline, no thyromegaly or masses palpated, and no cervical lymphadenopathy. Supple, full range of motion without nuchal rigidity, or vertebral point tenderness. No Meningismus. Chest/axilla: Normal chest wall appearance and motion. Nontender with no deformity. No lesions are appreciated. Cardiovascular: Regular rate and rhythm with a normal S1 and S2. No gallops, murmurs, or rubs. Normal PMI, no JVD. No pulse deficits. Respiratory: Lungs have equal breath sounds bilaterally, clear to auscultation and percussion. No rales, rhonchi or wheezes noted. No increased work of breathing, no retractions or nasal flaring. Abdomen/GI: Soft, non-tender, with normal bowel sounds. No distension or tympany. No guarding or rebound. No evidence of tenderness throughout. Back: No spinal tenderness. No costovertebral tenderness. Full range of motion. Skin: Warm, dry with normal turgor. Normal color with no rashes, no lesions, and no evidence of cellulitis. Neuro: Awake and alert, GCS 15, oriented to person, place, time, and situation. Cranial nerves II-XII grossly intact. Motor strength 5/5 in all extremities. Sensory grossly intact. Cerebellar exam normal. Normal gait. Psych: Awake, alert, with orientation to person, place and time. Behavior, mood, and affect are within normal limits. 18:31 Musculoskeletal/extremity: ROM: limited active range of motion, limited passive range of motion, limited active range of motion due to pain, limited passive range of motion due to pain, in the anterior aspect of left shoulder and posterior aspect of left shoulder, Pulses: noted to be 4+ in the bilateral radial, brachial, femoral, popliteal, posterior tibial and and dorsalis pedis arteries., Sensation intact. Compartment Syndrome exam of affected extremity: is normal. 18:31 Musculoskeletal/extremity: Joints: All joints are normal except the left shoulder displays limited range of motion, pain at rest, painful range of motion, tenderness, DVT Exam: negative Homans' sign noted on exam, no appreciated bluish discoloration, no erythema, no increased warmth, swelling. Vital Signs: 17:17 BP 161 / 102; Pulse 100; Resp 17; Temp 98.6; Pulse Ox 100% ; Weight 92.08 kg; Height 5 ll1 ft. 8 in. (172.72 cm); Pain 10/10; 20:51 BP 147 / 92; Pulse 83; Resp 18; Pulse Ox 100% on R/A; tw5 17:17 Body Mass Index 30.87 (92.08 kg, 172.72 cm) ll1 MDM: 18:33 Differential diagnosis: dislocation, closed fracture, contusion, tendonitis. Data sona reviewed: vital signs, nurses notes, lab test result(s), EKG, radiologic studies, CT scan, plain films. Data interpreted: shear assembler: rate is 100 beats/min, rhythm is regular, Pulse oximetry: on room air is 100 %. Test interpretation: by ED physician or midlevel provider: ECG, plain radiologic studies. Counseling: I had a detailed discussion with the patient and/or guardian regarding: the historical points, exam findings, and any diagnostic results supporting the discharge/admit diagnosis, lab results, radiology results, the need for outpatient follow up, for definitive care, a family practitioner, a orthopedic surgeon. 19:03 Patient medically screened. [facility] 02/25 16:43 Order name: Basic Metabolic Panel; Complete Time: 20:03 [facility] 02/25 16:43 Order name: CBC with Diff; Complete Time: 19:54 [facility] 02/25 16:43 Order name: LFT's; Complete Time: 20:03 [facility] 02/25 16:43 Order name: Magnesium; Complete Time: 20:03 [facility] 02/25 16:43 Order name: NT PRO-BNP; Complete Time: 20:03 [facility] 02/25 16:43 Order name: PT-INR; Complete Time: 19:54 [facility] 02/25 16:43 Order name: Troponin HS; Complete Time: 20:03 [facility] 02/25 16:43 Order name: XRAY Chest (1 view); Complete Time: 18:28 [facility] 02/25 16:43 Order name: CT Head C Spine; Complete Time: 18:28 [facility] 02/25 18:29 Order name: Shoulder Left (2 View) XRAY; Complete Time: 19:11 [facility] 02/25 16:43 Order name: EKG; Complete Time: 16:44 [facility] 02/25 16:43 Order name: Cardiac monitoring; Complete Time: 20:40 [facility] 02/25 16:43 Order name: EKG - Nurse/Tech; Complete Time: 20:50 [facility] 02/25 16:43 Order name: IV Saline Lock; Complete Time: 20:50 [facility] 02/25 16:43 Order name: Labs collected and sent; Complete Time: 20:50 [facility] 02/25 16:43 Order name: O2 Per Protocol; Complete Time: 20:50 [facility] 02/25 16:43 Order name: O2 Sat Monitoring; Complete Time: 20:50 [facility] Administered Medications: 20:43 Drug: NS 0.9% 1000 ml Route: IV; Rate: 125 ml/hr; Site: right antecubital; tw5 20:53 Follow up: IV Status: Order to discontinue infusion; IV Intake: 200ml tw5 20:45 Drug: Aspirin Chewable Tablet 162 mg Route: PO; tw5 20:53 Follow up: Response: No adverse reaction tw5 20:46 Not Given (Patient Refused): Valium (diazepam) 5 mg PO once tw5 20:48 Drug: Decadron - Dexamethasone 10 mg Route: IVP; Site: right antecubital; tw5 20:52 Follow up: Response: No adverse reaction tw5 20:49 Drug: Ketorolac 30 mg Route: IVP; Site: right antecubital; tw5 20:53 Follow up: Response: No adverse reaction tw5 20:49 Not Given (Patient Refused): [place] (HYDROcodone-acetaminophen) 10 mg-325 mg 1 tabs PO tw5 once Disposition Summary: 02/25/22 20:16 Discharge Ordered Location: Home jmm Problem: new jmm Symptoms: have improved jmm Condition: Stable jmm Diagnosis - Unspecified symptoms and signs involving the musculoskeletal system jmm - Pain in left shoulder jmm - Cervical disc disorder with radiculopathy, cervicothoracic region jmm Followup: sona - With: Private Physician - When: 2 - 3 days - Reason: Recheck today's complaints, Continuance of care, Re-evaluation by your physician Followup: sona - With: - When: 2 - 3 days - Reason: Recheck today's complaints, Continuance of care, Re-evaluation by your physician Discharge Instructions: - Discharge Summary Sheet sona - Joint Pain sona - Cervical Radiculopathy sona - Musculoskeletal Pain sona - Shoulder Pain sona - Shoulder Pain, Jzxx-jg-Pbip sona - Joint Pain, Szzp-xh-Ixnk sona - Cervical Radiculopathy, Pwyr-iy-Lvow sona Forms: - Medication Reconciliation Form [facility] - Thank You Letter [facility] - Antibiotic Education [facility] - Prescription Opioid Use [facility] Prescriptions: - Prednisone 20 mg Oral Tablet - take 3 tablets by ORAL route once daily for 5 days; 15 tablet; Refills: 0, [facility] Product Selection Permitted - Ultracet 37.5-325 mg Oral Tablet - take 1 tablet by ORAL route every 6 hours - for up to 5 days; do not exceed 8 jmm tablets per day.; 20 tablet; Refills: 0, Product Selection Permitted - Diclofenac Sodium 75 mg Oral Tablet Sustained Release - take 1 tablet by ORAL route 2 times per day; 30 tablet; Refills: 0, Product [facility] Selection Permitted - orphenadrine citrate 100 mg Oral Tablet Sustained Release - take 1 tablet by ORAL route 2 times per day As needed; 20 tablet; Refills: 0, [facility] Product Selection Permitted Signatures: Dispatcher [employer] Ed Genao MD MD cha Mickail, Joel, PA PA jmm Lewis, Lynsay RN RN ll1 Lali Rojas tw5 Corrections: (The following items were deleted from the chart) 20:40 18:30 Sling ordered. sona tw5
[2022-02-25] MEDS ORDERED: dexAMETHasone 10 MG/ML VIAL ONE (20:38)
[2022-02-25] MEDS ORDERED: DIAZEPAM 5 MG TABLET ONE (20:38)
[2022-02-25] MEDS ORDERED: ASPIRIN 81 MG CHEWABLE TABLET ONE (20:38)
[2022-02-25] MEDS ORDERED: HYDROCODONE/APAP 10/325 TAB ONE (20:38)
[2022-02-25] MEDS ORDERED: KETOROLAC 30 MG/ML INJ ONE (20:39)
[2022-02-25] MEDS ORDERED: NA CHLORIDE 0.9% 1,000 ML ONE (20:39)
[2022-02-25 20:59] VITALS: TEMP 98.6; O2SAT 100
[2022-02-25 21:00] VITALS: BP 147/92
--- NOTE | 2022-02-27 17:48 | EKG ---
Test Date: 2022-02-25 Test Time: 20:42:22 Powertrain Design Engineer: JEANE MEASUREMENT RESULTS: Intervals: Rate: 87 DE: 156 QRSD: 86 QT: 378 QTc: 454 [place]: P: 25 DE: 156 QRS: 85 T: 59 INTERPRETIVE STATEMENTS: Normal sinus rhythm Normal ECG No previous ECG available for comparison Electronically Signed On 02-27-22 17:45:02 DIRECTOR ON AIR by Aroldo Enrique
== END 2022-02-25 20:53 | disposition home or self-care (01) ==
LOC: ER 16:31
DX: M50.13 Cervical disc disorder with radiculopathy, cervicothoracic region (principal); R29.91 Unspecified symptoms and signs involving the musculoskeletal system
CPT/HCPCS: 36415; 70450; 71045; 72125; 80048; 80076; 83735; 83880; 84484; 85025; 85610; 93005; 96374; 96375; 99284; J1100; J7030

== ENCOUNTER 2022-08-10 23:46 | Emergency (ER) | payer SELFPAY ==
--- OUTSIDE RECORDS SUMMARY | 2022-08-10 23:49 | XMS REPORT | Continuity of Care Document ---
:1985 Author Organization [facility] t Address [address] [facility] [address] [place] [address] Care Team Providers Name Role Phone Pcp, Patient Does Not Have A Primary Care Physician +[id number] BINU MCGINNIS Attending Clinician Unavailable Binu Sandoval Attending Clinician Doctor Unassigned, [place] Attending Clinician Unavailable Problems Condition Condition Condition Status Onset Resolution Last Treating Co mments Source Name Details Category Date Date Treatment Clinician Date No known No known Disease Unive rs active active ity of problems problems [facility] Allergies, Adverse Reactions, Alerts Allergy Allergy Status Severity Reaction(s) Onset Inactive Treating Comm ents Source Name Type Date Date Clinician NO KNOWN Drug Active Univers ALLERGIE Class ity of S [facility] Social History Social Habit Start Date Stop Date Quantity Comments Source Exposure to 2021-11-02 2021-11-12 Not sure [facility]-CoV-2 00:00:00 15:19:00 [facility] (event) [place] Alcohol intake 2021-11-12 2021-11-12 Lifetime University of 00:00:00 00:00:00 non-drinker [facility] (finding) [place] Tobacco use and 2021-10-08 2021-10-08 Smokeless tobacco Un iversity of exposure 00:00:00 00:00:00 non-user [facility] Sex Assigned At [birth year] Universit y of 00:00:00 00:00:00 [facility] Smoking Status Start Date Stop Date Source Never smoked tobacco [facility] Medications Ordered Filled Start Stop Current Ordering Indication Dosage Frequency Signature Comments Components Source Medication Medication Date Date Medication? Clinician (SIG) Name Name suecinmalcolm 2021- No [id number] 40mg Univers ne 11-12 ity of acetonide 23:30: 22:21 [place] (KENALOG) 00 :00 Medical injection Branch 40 mg triamcinolo 2021- No [id number] 40mg 40 mg, [facility] ne 11-12 Intramuscu ity of acetonide 23:30: 22:21 [place]CE, [place] ([place] 00 :00 1 dose, On Medi matias injection Tue Branch 40 mg 11/12/21 at 1830, Routine No known No No known Unive rs medications 11-12 medication it y of 15:35: s [address] No known No No known Unive rs medications 11-12 medication it y of 15:35: s [address] No known No No known Unive rs medications 11-12 medication it y of 15:35: s [address] No known No No known Unive rs medications 11-12 medication it y of 15:35: s [address] Vital Signs Vital Name Observation Time Observation Value Comments Source Systolic blood 2021-11-12 21:05:00 148 mm[Hg] Univer sity [facility] pressure [facility] Diastolic blood 2021-11-12 21:05:00 92 mm[Hg] Unive rsity [facility] pressure [facility] Heart rate 2021-11-12 21:05:00 102 /min [facility] Oxygen saturation 2021-11-12 21:05:00 99 /[facility] Br [facility] by Pulse oximetry Body weight 2021-11-12 20:34:00 94.484 kg [facility] BMI 2021-11-12 20:34:00 31.67 kg/m2 [facility] Procedures Procedure Date / Time Performing Clinician Source Performed PATIENT FINANCIAL 2021-11-15 05:01:00 Doctor Unassigned, [facility] RESPONSIBILITY - ALL [facility] FORMS Encounters Start End Encounter Admission Attending Care Care Encounter Source Date/Time Date/Time Type Type Clinicians Facility Department ID 2021-12-26 2021-12-26 Outpatient RIVERA KUMAR [facility] [id number] Univers 11:15:00 11:15:00 BINU [facility] 2021-12-25 2021-12-25 [facility] [id number] Univers 00:00:00 00:00:00 (Out) Binu S HEALTH [id number] it y of [place] [id number] Jigar as JONELLE?BLEA [id number] La daniel MORATAYA [address] [place] [facility] 2021-12-12 2021-12-12 [facility] [id number] Univers 08:15:00 08:15:00 BINU [facility] 2021-12-11 2021-12-11 [facility] [id number] Univers 00:00:00 00:00:00 (Out) Binu S HEALTH [id number] it y of [place] [id number] Jigar as JONELLE?BLEA [phone] La daniel VALDERRAMA [address] [facility] OFFICE [facility] 2021-11-15 2021-11-15 Orders Doctor AIMEE [id number] Univers 00:00:00 00:00:00 Only Unassigned, RICK [id number] ity of [place] [facility] [id number] Jigar as [id number] [address] 2021-11-15 2021-11-15 [facility] [id number] Univers 00:00:00 00:00:00 (Out) Binu S HEALTH [id number] it y of [place] [id number] Jigar as JONELLE?BLEA [phone] La daniel MORATAYA [address] [place] [address] OFFICE [facility] 2021-11-12 2021-11-12 [facility] [id number] Univers 15:30:00 17:26:04 [facility]-11-12 2021-11-12 Office [facility] [id number] Univers 15:30:00 17:26:04 Visit Binu S HEALTH [id number] it y of [place] [id number] Jigar as JONELLE?BLEA [phone] La daniel MORATAYA [address] [facility] OFFICE [facility] 2021-11-12 2021-11-12 [facility] [id number] Univers 15:30:00 15:30:00 BINU ity [facility] 2021-10-23 2021-10-23 [facility] [id number] Univers 16:00:00 16:00:00 BINU ity [facility] 2021-10-23 2021-10-23 [facility] [id number] Univers 08:30:00 08:30:00 BINU [facility] 2021-10-21 2021-10-21 Letter [facility] [id number] Univers 00:00:00 00:00:00 (Out) Binu S HEALTH [id number] it y of [place] [id number] Jigar as JONELLE?BLEA [phone] La daniel MORATAYA [address] [facility] 2021-10-17 2021-10-17 Letter [facility] [id number] Univers 00:00:00 00:00:00 (Out) Binu S HEALTH [id number] it y of [place] [id number] Jigar as JONELLE?BLEA [phone] La daniel MORATAYA [address] [place] [address] OFFICE [facility] 2021-10-09 2021-10-09 Telephone [facility] [id number] Univers 00:00:00 00:00:00 Binu S HEALTH [id number] it y of [place] [id number] Jigar as JONELLE?BLEA [phone] La daniel MORATAYA [address] [place] [address] OFFICE [facility] 2021-10-08 2021-10-08 [facility] [id number] Univers 15:00:00 16:27:42 BINU ity [facility] 2021-10-08 2021-10-08 Office Tiffani [facility] [id number] Univers 15:00:00 16:27:42 Visit Binu S [facility] [id number] [facility] [id number] Jigar as JONELLE?BLEA [phone] La daniel MORATAYA [address] [place] MEDICAL OFFICE [facility] 2021-10-08 2021-10-08 Letter Tiffani [facility] [id number] Univers 00:00:00 00:00:00 (Out) Binu S HEALTH [id number] [facility] [id number] Jigar as JONELLE?BLEA [phone] La daniel VALDERRAMACARLOS [address] [place] [facility] OFFICE [facility] 2021-10-08 2021-10-08 Orders Doctor AIMEE [id number] [id number] Univers 00:00:00 00:00:00 Only Unassigned, RICK 350.1.13.10 ity of [place] [facility] [id number] Jigar as [phone] [place] [address] Branch Results This patient has no known results.
[2022-08-11] MEDS ORDERED: TETANUS & DIPHTHERIA TOX,ADULT 0.5 ML VIAL ONE (00:13)
[2022-08-11] MEDS ORDERED: LIDOCAINE 2% MPF 5 ML VIAL ONE (00:13)
[2022-08-11] MEDS ORDERED: LIDOCAINE 1% MPF 5 ML VIAL ONE (00:18)
--- NOTE | 2022-08-11 00:22 | EDPHYS ---
Physician Documentation [facility] Name: Reid Landers Age: 36 yrs Sex: Male : 1985 Arrival Date: 08/10/2022 Time: 23:46 Bed 5 Private MD: ED Physician Mandeep Alexis HPI: 08/11 00:27 This 36 yrs old Male presents to ER via Ambulatory with complaints of SPLINTER.kb 00:27 The patient or guardian reports the patient has a suspected foreign body, of the Right kb voodoo. The reported likely foreign body is Stick. Onset: The symptoms/episode began/occurred just prior to arrival. Current symptoms: foreign body sensation. Treatment Prior to Arrival: tried to remove, but couldn't get out. The patient has not experienced similar symptoms in the past. The patient has not recently seen a physician. Patient reports he pulled a tree branch off of the roof and hit him in the head causing a stick to go into voodoo. States he tried to remove the stick by pulling it out but it was bent so he could not pull it directly out. Historical: - Allergies: 00:44 No Known Allergies; rv - Immunization history:: Adult Immunizations not up to date. - Social history:: Smoking status: Patient reports the use of cigarette tobacco products, unknown amount. ROS: 00:28 Constitutional: Negative for fever, chills, and weight loss. kb 00:28 Skin: Positive for puncture, Foreign body. 00:28 All other systems are negative. Exam: 00:28 Constitutional: This is a well developed, well nourished patient who is awake, alert, kb and in no acute distress. Head/Face: Normocephalic, atraumatic. ENT: Moist Mucous membranes Respiratory: Respirations even and unlabored. No increased work of breathing. Talking in full sentences MS/ Extremity: Pulses equal, no cyanosis. Neurovascular intact. Full, normal range of motion. Neuro: Awake and alert, GCS 15, oriented to person, place, time, and situation. Moves all extremities. Normal gait. 00:28 Skin: injury, puncture(s), that are superficial, of the right voodoo, With foreign body. Vital Signs: 00:00 BP 154 / 105; Pulse 103; Resp 18; Temp 98.6; Pulse Ox 99% ; Weight 92.99 kg; Height 5 kl ft. 8 in. ; 00:00 Body Mass Index 31.17 (92.99 kg, 172.72 cm) kl Procedures: 00:26 Foreign Body Removal: Wooden stick, from the right voodoo, by 1.5 ml 1% lidocaine kb injected around site and states pulled out using slow steady pressure. Dressing: Band-Aid, The patient tolerated the removal well. MDM: 08/10 23:59 Patient medically screened. kb 08/11 00:26 Data reviewed: vital signs, nurses notes. kb 00:29 Test considered but Not performed: X-ray: x-ray considered to determine depth of stick, kb but it made a 90 degree turn just under the skin. easily palpated below skin surface. Counseling: I had a detailed discussion with the patient and/or guardian regarding: the historical points, exam findings, and any diagnostic results supporting the discharge/admit diagnosis, the need for outpatient follow up, a family practitioner, to return to the emergency department if symptoms worsen or persist or if there are any questions or concerns that arise at home. 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 Exp: jb4 08/10/2023. Lot #: [id number]. } Route: IM; Site: left deltoid; 00:44 Follow up: Response: No adverse reaction rv 00:44 Drug: Lidocaine Infiltration (1 %) 1 vials {Note: ADMINISTERED BY PROVIDER.} Volume: 5 rv ml; Route: Infiltration; Disposition Summary: 08/11/22 00:21 Discharge Ordered Location: Home kb Condition: Stable kb Diagnosis - Puncture wound with foreign body of face kb Followup: kb - With: Emergency Department - When: As needed - Reason: Worsening of condition Followup: kb - With: Private Physician - When: 2 - 3 days - Reason: Recheck today's complaints, Continuance of care, Re-evaluation by your physician Discharge Instructions: - Discharge Summary Sheet kb - Puncture Wound, Jbxn-fb-Ewem kb - Skin Foreign Body kb Forms: - Medication Reconciliation Form kb - Thank You Letter kb - Antibiotic Education kb - Prescription Opioid Use kb Prescriptions: - Cephalexin 250 mg Oral Capsule - take 1 capsule by ORAL route every 8 hours for 10 days; 30 capsule; Refills: 0, kb Product Selection Permitted Signatures: Jennifer Silverio FNP-C LINE RUNNER-Ckb Jay Jauregui, RN RN jb4 Daron Cordoba, RN RN rv
--- NOTE | 2022-08-11 00:22 | ER ---
Nurse's Notes [facility] Name: Reid Landers Age: 36 yrs Sex: Male : 1985 Arrival Date: 08/10/2022 Time: 23:46 Bed 5 Private MD: Diagnosis: Puncture wound with foreign body of face Presentation: 08/11 00:00 Coronavirus screen: Vaccine status: Patient reports being unvaccinated. kl 00:00 Method Of Arrival: Ambulatory kl 00:00 Ebola Screen: Patient negative for fever greater than or equal to 101.5 degrees kl Fahrenheit, and additional compatible Ebola Virus Disease symptoms. 00:05 Chief complaint: Patient states: Patient states Tree fell and patient sustained impaled cg stick noted to right baptist area. 00:08 Initial Sepsis Screen: Does the patient meet any 2 criteria? No. Patient's initial jb4 sepsis screen is negative. Does the patient have a suspected source of infection? No. Patient's initial sepsis screen is negative. Risk Assessment: Do you want to hurt yourself or someone else? Patient reports no desire to harm self or others. Onset of symptoms was August 11, 2022. 00:08 Acuity: CRISTHIAN 4 jb4 Historical: - Allergies: 00:44 No Known Allergies; rv - Immunization history:: Adult Immunizations not up to date. - Social history:: Smoking status: Patient reports the use of cigarette tobacco products, unknown amount. Screenin:00 [facility] ED Fall Risk Assessment (Adult) History of falling in the last 3 months, rv including since admission No falls in past 3 months (0 pts) Confusion or Disorientation No (0 pts) Intoxicated or Sedated No (0 pts) Impaired Gait No (0 pts). Abuse screen: Denies threats or abuse. Denies injuries from another. 00:00 Nutritional screening: No deficits noted. Tuberculosis screening: No symptoms or risk rv factors identified. Assessment: 00:00 General: Appears uncomfortable, Behavior is calm, cooperative. rv 00:00 Pain: Complains of pain in right baptist. Neuro: Level of Consciousness is awake, alert, rv obeys commands, Oriented to person, place, time, situation. Cardiovascular: Capillary refill. Respiratory: Airway is patent. EENT: Eyes NORMAL. Reports NORMAL VISION. Vital Signs: 00:00 BP 154 / 105; Pulse 103; Resp 18; Temp 98.6; Pulse Ox 99% ; Weight 92.99 kg; Height 5 kl ft. 8 in. ; 00:00 Body Mass Index 31.17 (92.99 kg, 172.72 cm) ED Course: 08/10 23:50 Patient arrived in ED. es 23:59 Jennifer Silverio FNP-C [facility]. kb 23:59 Mandeep Alexis MD is Attending Physician. kb 08/11 00:00 Arm band placed on right wrist. rv 00:00 Patient has correct armband on for positive identification. Client placed on continuous rv cardiac and pulse oximetry monitoring. NIBP monitoring applied. 00:08 Jay Jauregui, RN is Primary Nurse. jb4 00:09 Triage completed. jb4 00:15 Assist provider with foreign body removal of a splinter from right MUSLIM using MANUAL rv Set up for procedure. Performed by Jennifer QUINONEZ Dressed with GAUZE AND BANDAID Patient tolerated well. 00:42 Patient did not have IV access during this emergency room visit. 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 Exp: jb4 08/10/2023. Lot #: [id number]. } Route: IM; Site: left deltoid; 00:44 Follow up: Response: No adverse reaction rv 00:44 Drug: Lidocaine Infiltration (1 %) 1 vials {Note: ADMINISTERED BY PROVIDER.} Volume: 5 rv ml; Route: Infiltration; Medication: 00:43 Vaccine Information Statement (VIS) provided today. Questions and/or concerns rv addressed. VIS edition date: August 11, 2022. Outcome: 00:21 Discharge ordered by . kb 00:43 Discharged to home ambulatory, with family. rv 00:43 Condition: improved 00:43 Discharge instructions given to patient, Instructed on discharge instructions, follow up and referral plans. medication usage, Demonstrated understanding of instructions, follow-up care, medications, Prescriptions given X 1. 00:44 Patient left the ED. rv Signatures: Jennifer Silverio FNP-C FNP-Ckb Lewis, Kimberly, RN RN kl Salyer, Edna es Garcia, Cindy, RN RN Jay Jauregui RN RN jb Adalid, Daron, RN RN rv Corrections: (The following items were deleted from the chart) 00:08 00:00 Chief complaint: Patient states: Tree branch fell on right side of forehead and cg large splinter impeded in forehead. kl
[2022-08-11 01:08] VITALS: BP 154/105; TEMP 98.6; O2SAT 99
== END 2022-08-11 00:44 | disposition home or self-care (01) ==
LOC: ER 23:46
DX: S01.84XA Puncture wound with foreign body of other part of head, initial encounter (principal); Z23 Encounter for immunization
CPT/HCPCS: 90471; 90714; 99284; J2001

== ENCOUNTER 2023-02-02 11:05 | Emergency (ER) | payer BC ==
--- OUTSIDE RECORDS SUMMARY | 2023-02-02 11:07 | XMS REPORT | Continuity of Care Document ---
:1985 Author Organization [facility] t Address [address] [facility] [address] [place] [address] Care Team Providers Name Role Phone Pcp, Patient Does Not Have A Primary Care Physician +[id number] BINU MCGINNIS Attending Clinician Unavailable Binu Sandoval Attending Clinician Doctor Unassigned, [place] Attending Clinician Unavailable Problems Condition Condition Condition Status Onset Resolution Last Treating Co mments Source Name Details Category Date Date Treatment Clinician Date No known No known Disease Unive rs active active ity of problems problems [facility] Allergies, Adverse Reactions, Alerts Allergy Allergy Status Severity Reaction(s) Onset Inactive Treating Comm ents Source Name Type Date Date Clinician NO KNOWN Drug Active Univers ALLERGIE Class ity of S [facility] Social History Social Habit Start Date Stop Date Quantity Comments Source Exposure to 2021-11-02 2021-11-12 Not sure [facility]-CoV-2 00:00:00 15:19:00 [facility] (event) [place] Alcohol intake 2021-11-12 2021-11-12 [facility] of 00:00:00 00:00:00 non-drinker [facility] (finding) [place] Tobacco use and 2021-10-08 2021-10-08 Smokeless tobacco Un iversity of exposure 00:00:00 00:00:00 non-user [facility] Sex Assigned At [birth year] Universit y of 00:00:00 00:00:00 [facility] Smoking Status Start Date Stop Date Source Never smoked tobacco [facility] Medications Ordered Filled Start Stop Current Ordering Indication Dosage Frequency Signature Comments Components Source Medication Medication Date Date Medication? Clinician (SIG) Name Name suecinmalcolm 2021- No [id number] 40mg Univers ne 11-12 ity of acetonide 23:30: 22:21 [place] (KENALOG) 00 :00 Medical injection Branch 40 mg triamcinolo 2021- No [id number] 40mg 40 mg, [facility] ne 11-12 Intramuscu ity of acetonide 23:30: 22:21 [place]CE, [place] ([place] 00 :00 1 dose, On Medi matias injection Tue Branch 40 mg 11/12/21 at 1830, Routine No known No No known Unive rs medications 11-12 medication it y of 15:35: s [address] No known No No known Unive rs medications 11-12 medication it y of 15:35: s [address] No known No No known Unive rs medications 11-12 medication it y of 15:35: s [address] No known No No known Unive rs medications 11-12 medication it y of 15:35: s [address] Vital Signs Vital Name Observation Time Observation Value Comments Source Systolic blood 2021-11-12 21:05:00 148 mm[Hg] Univer sity [facility] pressure [facility] Diastolic blood 2021-11-12 21:05:00 92 mm[Hg] Unive rsity [facility] pressure [facility] Heart rate 2021-11-12 21:05:00 102 /min [facility] Oxygen saturation 2021-11-12 21:05:00 99 /min [facility] [place] [facility] Arterial blood [facility] Br anch by Pulse oximetry Body weight 2021-11-12 20:34:00 94.484 kg [facility] BMI 2021-11-12 20:34:00 31.67 kg/m2 [facility] Procedures Procedure Date / Time Performing Clinician Source Performed PATIENT FINANCIAL 2021-11-15 05:01:00 Doctor Unassigned, [facility] RESPONSIBILITY - ALL [place] [facility] FORMS Encounters Start End Encounter Admission Attending Care Care Encounter Source Date/Time Date/Time Type Type Clinicians Facility Department ID 2021-12-26 2021-12-26 Outpatient RIVERA KUMAR [facility] [id number] Univers 11:15:00 11:15:00 BINU [facility] 2021-12-25 2021-12-25 Machelle McginnisRUST [id number] Univers 00:00:00 00:00:00 (Out) Binu S HEALTH [id number] it y of [place] [id number] Jigar as JONELLE?BLEA [id number] Wa daniel MORATAYA [address] [place] MEDICAL OFFICE [facility] 2021-12-12 2021-12-12 [facility] [id number] Univers 08:15:00 08:15:00 BINU [facility] 2021-12-11 2021-12-11 Machelle McginnisRUST [id number] Univers 00:00:00 00:00:00 (Out) Binu S HEALTH [id number] it y of [place] [id number] Jigar as JONELLE?BLEA [phone] Wa daniel VALDERRAMA [address] [facility] OFFICE [facility] 2021-11-15 2021-11-15 Orders Doctor AIMEE [id number] Univers 00:00:00 00:00:00 Only Unassigned, RICK [id number] ity of [place] [facility] [id number] Jigar as [phone] [address] 2021-11-15 2021-11-15 Machelle McginnisRUST [id number] Univers 00:00:00 00:00:00 (Out) Binu S HEALTH [id number] it y of [place] [id number] Jigar as JONELLE?BLEA [phone] Wa daniel MORATAYA [address] [place] [address] OFFICE [facility] 2021-11-12 2021-11-12 [facility] [id number] Univers 15:30:00 17:26:04 [facility]12 2021-11-12 Office TiffaniRUST [id number] [id number] Univers 15:30:00 17:26:04 Visit Binu S HEALTH [id number] it y of [place] [id number] Jigar as JONELLE?BLEA [phone] Wa daniel MORATAYA 198 [facility] OFFICE [facility] 2021-11-12 2021-11-12 [facility] [id number] Univers 15:30:00 15:30:00 BINU ity [facility] 2021-10-23 2021-10-23 [facility] [id number] Univers 16:00:00 16:00:00 BINU ity [facility] 2021-10-23 2021-10-23 [facility] [id number] Univers 08:30:00 08:30:00 BINU [facility] 2021-10-21 2021-10-21 Letter [facility] [id number] Univers 00:00:00 00:00:00 (Out) Binu S HEALTH [id number] it y of [place] [id number] Jigar as JONELLE?BLEA [id number] Wa daniel MORATAYA 198 [facility] 2021-10-17 2021-10-17 Letter [facility] [id number] Univers 00:00:00 00:00:00 (Out) Binu S HEALTH [id number] it y of [place] [id number] Jigar as JONELLE?BLEA [phone] Wa daniel MORATAYA [address] [place] [address] OFFICE [facility] 2021-10-09 2021-10-09 Telephone [facility] [id number] Univers 00:00:00 00:00:00 Binu S HEALTH [id number] it y of [place] [id number] Jigar as JONELLE?BLEA [id number] Wa daniel MORATAYA [address] [place] [address] OFFICE [facility] 2021-10-08 2021-10-08 Outpatient [facility] [id number] Univers 15:00:00 16:27:42 BINU ity [facility] 2021-10-08 2021-10-08 Office Tiffani [facility] [id number] Univers 15:00:00 16:27:42 Visit Binu S [facility] [id number] [facility] [id number] Jigar as JONELLE?BLEA [id number] Wa daniel MORATAYA [address] [place] MEDICAL OFFICE [facility]ILD[facility] 2021-10-08 2021-10-08 Letter Tiffani [facility] [id number] Univers 00:00:00 00:00:00 (Out) Binu S HEALTH [id number] [facility] [id number] Jigar as JONELLE?BLEA [phone] Wa daniel VALDERRAMACARLOS [address] [place] MEDICAL OFFICE [facility]ILD[facility] 2021-10-08 2021-10-08 Orders Doctor AIMEE [id number] Univers 00:00:00 00:00:00 Only Unassigned, RICK [id number] ity of [place] [facility] [id number] Jigar as [phone] [place] [address] Branch Results This patient has no known results.
--- NOTE | 2023-02-02 11:43 | ER ---
Nurse's Notes [facility] Name: Reid Landers Age: 37 yrs Sex: Male : 1985 Arrival Date: 02/02/2023 Time: 11:05 Bed IW3 Private MD: Diagnosis: Rash and other nonspecific skin eruption Presentation: 02/02 11:28 Chief complaint: Patient states: has a red bump on his neck that's been there for a iw while but getting bigger, also has red dots on his feet. Coronavirus screen: At this time, the client does not indicate any symptoms associated with coronavirus-19. 11:28 Method Of Arrival: Ambulatory iw 11:44 Ebola Screen: Patient negative for fever greater than or equal to 101.5 degrees iw Fahrenheit, and additional compatible Ebola Virus Disease symptoms Patient denies exposure to infectious person. Risk Assessment: Do you want to hurt yourself or someone else? Patient reports no desire to harm self or others. 11:44 Acuity: CRISTHIAN 4 iw Historical: - Allergies: 11:44 No Known Allergies; iw Vital Signs: 11:44 BP 138 / 92; Pulse 90; Resp 16; Temp 98.2; Pulse Ox 98% on R/A; iw ED Course: 11:06 Patient arrived in ED. im 11:07 Karina Alamo [facility]-C [facility]. snw 11:07 Steve Yu MD is Attending Physician. snw 11:44 Erum Decker, JUSTYN is Primary Nurse. iw 11:44 Triage completed. iw Administered Medications: No medications were administered Outcome: 11:43 Discharge ordered by . snw 12:38 Patient left the ED. iw Signatures: Karina Alamo FNP-C [employer] Erum Decker, RN RN iw Beatrice Hernandez im
--- NOTE | 2023-02-02 11:43 | EDPHYS ---
Physician Documentation [facility] Name: Reid Landers Age: 37 yrs Sex: Male : 1985 Arrival Date: 02/02/2023 Time: 11:05 Bed IW3 Private MD: ED Physician Steve Yu HPI: 02/02 11:54 This 37 yrs old Male presents to ER via Ambulatory with complaints of Neck snw Swelling, Feet issue. 11:54 Onset: The symptoms/episode began/occurred 2 month(s) ago, and became persistent. snw Associated signs and symptoms: The patient has no apparent associated signs or symptoms. The pain does not radiate. Severity of symptoms: At their worst the symptoms were moderate. It is unknown whether or not the patient has had similar symptoms in the past. The patient has not recently seen a physician. Pt states he has a knot in his posterior neck intermittently and then noted he has a rash to bilateral feet and ankles for a long duration, denies pruritis.. Historical: - Allergies: 11:44 No Known Allergies; iw ROS: 11:55 Constitutional: Negative for fever, chills, and weight loss, Eyes: Negative for injury, snw pain, redness, and discharge, ENT: Negative for injury, pain, and discharge, Cardiovascular: Negative for chest pain, palpitations, and edema, Respiratory: Negative for shortness of breath, cough, wheezing, and pleuritic chest pain, Abdomen/GI: Negative for abdominal pain, nausea, vomiting, diarrhea, and constipation, Back: Negative for injury and pain, : Negative for injury, bleeding, discharge, and swelling, MS/Extremity: Negative for injury and deformity, Neuro: Negative for headache, weakness, numbness, tingling, and seizure, Psych: Negative for depression, anxiety, suicide ideation, homicidal ideation, and hallucinations, 11:55 Neck: Positive for swelling, swollen nodes, :55 Skin: Positive for rash, Exam: 11:51 Constitutional: This is a well developed, well nourished patient who is awake, alert, snw and in no acute distress. Head/Face: Normocephalic, atraumatic. Eyes: Pupils equal round and reactive to light, extra-ocular motions intact. Lids and lashes normal. Conjunctiva and sclera are non-icteric and not injected. Cornea within normal limits. Periorbital areas with no swelling, redness, or edema. Chest/axilla: Normal chest wall appearance and motion. Nontender with no deformity. No lesions are appreciated. Cardiovascular: Regular rate and rhythm with a normal S1 and S2. No gallops, murmurs, or rubs. Normal PMI, no JVD. No pulse deficits. Respiratory: Lungs have equal breath sounds bilaterally, clear to auscultation and percussion. No rales, rhonchi or wheezes noted. No increased work of breathing, no retractions or nasal flaring. Abdomen/GI: Soft, non-tender, with normal bowel sounds. No distension or tympany. No guarding or rebound. No evidence of tenderness throughout. Back: No spinal tenderness. No costovertebral tenderness. Full range of motion. MS/ Extremity: Pulses equal, no cyanosis. Neurovascular intact. Full, normal range of motion. Neuro: Awake and alert, GCS 15, oriented to person, place, time, and situation. Cranial nerves II-XII grossly intact. Motor strength 5/5 in all extremities. Sensory grossly intact. Cerebellar exam normal. Normal gait. Psych: Awake, alert, with orientation to person, place and time. Behavior, mood, and affect are within normal limits. 11:51 ENT: Nose: nasal drainage, that is minimal, and is seen coming from both nares, that is clear, 11:51 Neck: External neck: is normal, Lymph nodes: lymphadenopathy is appreciated, posterior cervical nodes, left, 11:51 Skin: contact dermatitis, on the bilateral lower lateral ankles and down lateral feet, Vital Signs: 11:44 BP 138 / 92; Pulse 90; Resp 16; Temp 98.2; Pulse Ox 98% on R/A; iw MDM: 11:11 Patient medically screened. snw 11:53 Differential diagnosis: recent URI, contact dermatitis, rash. Data reviewed: vital snw signs, nurses notes. Counseling: I had a detailed discussion with the patient and/or guardian regarding the historical points, exam findings, and any diagnostic results supporting the discharge/admit diagnosis, the need for outpatient follow up, for definitive care, a clinic office assistant, to return to the emergency department if symptoms worsen or persist or if there are any questions or concerns that arise at home. Special discussion: I have referred the patient to see his PCP for further evaluation of high blood pressure. Based on the history and exam findings, there is no indication for further emergent testing or inpatient evaluation. I discussed with the patient/guardian the need to see the clinic office assistant for further evaluation of the symptoms. I discussed with the patient/guardian the need to see the primary care provider for further evaluation of the symptoms. Administered Medications: No medications were administered Disposition: 16:56 Co-signature as Attending Physician, Steve Yu MD I reviewed the patient's care rn provided by the Advanced Practice Provider and agree with the diagnosis and treatment plan. Disposition Summary: 02/02/23 11:43 Discharge Ordered Notes: Location: Home snw Condition: Stable snw Diagnosis - Rash and other nonspecific skin eruption snw Followup: snw - With: Emergency Department - When: As needed - Reason: Worsening of condition Followup: snw - With: Private Physician - When: 1 - 2 days - Reason: Recheck today's complaints, Continuance of care, Re-evaluation by your physician Discharge Instructions: - Discharge Summary Sheet snw - Rash, Adult snw - Lymphadenopathy snw Forms: - Work release form snw - Medication Reconciliation Form snw - Thank You Letter snw - Antibiotic Education snw - Prescription Opioid Use snw - Patient Portal Instructions snw - Leadership Thank You Letter snw Prescriptions: - Zyrtec 10 mg Oral Tablet - take 1 tablet ORAL route once daily As needed; 20 tablet; Refills: 0, Product snw Selection Permitted - Nystatin-Triamcinolone 100,000-0.1 unit/g-% Topical cream - apply 1 application TOPICAL route 2 times per day; 50 gram; Refills: 0, Product snw Selection Permitted - Pepcid 20 mg Oral Tablet - take 1 tablet ORAL route once daily; 20 tablet; Refills: 0, Product Selection snw Permitted Signatures: Karina Alamo FNP-C [employer] Erum Decker RN RN Steve Velázquez MD MD rn
[2023-02-02 12:49] VITALS: BP 138/92; TEMP 98.2; O2SAT 98
== END 2023-02-02 12:38 | disposition home or self-care (01) ==
LOC: ER 11:05
DX: R21 Rash and other nonspecific skin eruption (principal)
CPT/HCPCS: 99281

== ENCOUNTER 2023-12-09 20:35 | Emergency (ER) | payer BC, OTHER, SELFPAY ==
--- OUTSIDE RECORDS SUMMARY | 2023-12-09 20:38 | XMS REPORT | Continuity of Care Document ---
Author Name Unknown Address [address] [place] [address] [facility] Address [address] [place] [address] Care Team Providers Care Hi Teacher Name Role Phone Pcp, Patient Does Not Have A Primary Care Physic clair BINU MCGINNIS Attending Clinician Unavailable Binu Sandoval Attending Clinician [phone] Doctor Unassigned, [facility] Attending Clinician U navailable Problems Condition Name Condition Details Condition Category Status Onset Date Resolution Date Last Treatment Date Treating Clinician Comments Source No known active problems No known active problems Disease [facility] Allergies, Adverse Reactions, Alerts Allergy Name Allergy Type Status Severity Reaction(s) Onset Date Inactive Date Treating Clinician Comments Source NO KNOWN ALLERGIE S Drug Class Active [facility] Social History Social Habit Start Date Stop Date Quantity Comments Source Exposure to SARS-CoV-2 (event) 2021-11-02 00:00:00 2021-11-12 15:19:00 Not sure [facility] Alcohol intake 2021-11-12 00:00:00 2021-11-12 00:00:00 Lifetime non-drinker (finding) [facility] Tobacco use and exposure 2021-10-08 00:00:00 2021-10-08 00:00:00 Smokeless tobacco non-user [facility] Sex Assigned At 1985 00:00:00 1985 00:00:00 [facility] Smoking Status Start Date Stop Date Source Never smoked tobacco [facility] Medications Ordered Medication Name Filled Medication Name Start Date Stop Date Current Medication? Ordering Clinician Indication Dosage Frequency Signature (SIG) Comments Components Source triamcinolo ne acetonide (KENALOG) injection 40 mg 11-12 23:30: 00 11-12 22:21 :00 No [id number] 40mg [facility] No known medications 11-12 15:35: 14 No No known medication [facility] Vital Signs Vital Name Observation Time Observation Value Comments S frieda Systolic blood pressure 2021-11-12 21:05:00 148 mm[Hg] [facility] Diastolic blood pressure 2021-11-12 21:05:00 92 mm[Hg] [facility] Heart rate 2021-11-12 21:05:00 102 /min [facility] Oxygen saturation in Arterial blood by Pulse oximetry 2021-11-12 21:05:00 99 /min [facility] Body weight 2021-11-12 20:34:00 94.484 [facility] BMI 2021-11-12 20:34:00 31.67 kg/m2 [facility] Procedures Procedure Date / Time Performed Performing Clinician Source PATIENT FINANCIAL RESPONSIBILITY - ALL FORMS 2021-11-15 05:01:00 Doctor Unassigned, [facility] Encounters Start Date/Time End Date/Time Encounter Type Admission Type Attending Clinicians Care Facility Care Department Encounter ID Source 2021-12-26 11:15:00 2021-12-26 11:15:00 Outpatient BINU KUMAR [facility] [id number] [facility] 2021-12-25 00:00:00 2021-12-25 00:00:00 Letter (Out) Binu Mcginnis [facility] 1.2.840.114 350.1.13.10 [id number] [facility] 2021-12-12 08:15:00 2021-12-12 08:15:00 Outpatient BINU KUMAR [facility] [id number] [facility] 2021-12-11 00:00:00 2021-12-11 00:00:00 [facility] (Out[facility] 1.2.840.114 350.1.13.10 [id number] [facility] 2021-11-15 00:00:00 2021-11-15 00:00:00 Orders Only Doctor Unassigned, [facility] 1.2.840.114 350.1.13.10 [id number] [facility] 2021-11-15 00:00:00 2021-11-15 00:00:00 Letter (Out) [facility] JONELLE?[facility] 1.2.840.114 350.1.13.10 [id number] [facility] 2021-11-12 15:30:00 2021-11-12 17:26:04 Outpatient R RAHEL BINU [facility] [id number] [facility] 2021-11-12 15:30:00 2021-11-12 17:26:04 [facility] 1.2.840.114 350.1.13.10 [id number] [facility] 2021-11-12 15:30:00 2021-11-12 15:30:00 Outpatient BINU KUMAR [facility] [id number] [facility] 2021-10-23 16:00:00 2021-10-23 16:00:00 Outpatient Markie MCGINNIS [facility] [id number] [facility] 2021-10-23 08:30:00 2021-10-23 08:30:00 Outpatient Markie MCGINNIS [facility] [id number] [facility] 2021-10-21 00:00:00 2021-10-21 00:00:00 [facility] (Out[facility] 1.2.840.114 350.1.13.10 [id number] [facility] 2021-10-17 00:00:00 2021-10-17 00:00:00 Letter (Out) [facility] JONELLE?[facility] 1..840.114 350.1.13.10 4.2.7.2.[id number] [facility] 2021-10-09 00:00:00 2021-10-09 00:00:00 Telephone Rahel [facility] JONELLE?[facility] 1..840.114 350.1.13.10 4.2.7.2.[id number] [facility] 2021-10-08 15:00:00 2021-10-08 16:27:42 Outpatient R RAHEL BINU [facility] [id number] [facility] 2021-10-08 15:00:00 2021-10-08 16:27:42 Office Visit Rahel [facility] JONELLE?[facility] 1..840.114 350.1.13.10 4.2.7.2.[id number] [facility] 2021-10-08 00:00:00 2021-10-08 00:00:00 Letter (Out) [facility]hel [facility] JONELLE?[facility] 1.2.840.114 350.1.13.10 [id number] [facility] 2021-10-08 00:00:00 2021-10-08 00:00:00 Orders Only Doctor Unassigned, [facility] 1.2.840.114 350.1.13.10 [id number] [facility]
[2023-12-09] MEDS ORDERED: ONDANSETRON 4 MG/2 ML VIAL ONE (20:58)
[2023-12-09] MEDS ORDERED: NA CHLORIDE 0.9% 1,000 ML ONE (20:58)
[2023-12-09] MEDS ORDERED: KETOROLAC 30 MG/ML INJ ONE (20:58)
[2023-12-09 21:17] LABS: Absolute Basophils 0.1 K/uL (0-0.5); Absolute Eosinophils 0.1 K/uL (0-0.5); Absolute Lymphocytes (CBC) 2.6 K/uL (0.7-4.9); Absolute Monocytes 0.7 K/uL (0.1-1.3); Basophils % 0.5 % (0-1.3); Eosinophils % 1.1 % (0-4.4); Hematocrit 42.1 % (39.6-49.0); Hemoglobin 14.4 g/dL (13.6-17.9); Lymphocytes % 24.5 % (15.3-44.8); MCH 30.3 pg (27.0-35.0); MCHC 34.2 g/dL (32.0-36.0); MCV 88.6 fL (80-100); MPV 8.1 fL (7.6-11.3); Monocytes % 6.8 % (3.3-12.3); Neutrophils % 67.1 % (41.7-73.7); Nucleated Red Blood Cells % 0.1 % (0-0); Platelets 225 thou/uL (152-406); RBC Red Blood Cell Count 4.75 M/uL (4.33-5.43)
[2023-12-09 21:33] LABS: Albumin 4.2 g/dL (3.4-5.0); Albumin/Globulin Ratio 1.2 (1.1-1.8); Anion Gap 9.6 mEq/L (5.0-15.0); Bilirubin Total 0.4 mg/dL (0.2-1.0); Globulin 3.6 g/dL (2.3-3.5); Potassium 3.6 mEq/L (3.5-5.1); Protein, Total 7.8 g/dL (6.4-8.2)
--- NOTE | 2023-12-09 22:49 | RAD REPORT ---
EXAMINATION: CT Abdomen Pelvis W Contrast CLINICAL INDICATION: Male, 38 years old. ABD PAIN TECHNIQUE: CT abdomen and pelvis was performed, after the administration of IV contrast, as per [facility] protocol. Axial, sagittal and coronal reconstructions were obtained. One or more of the following dose reduction techniques were used: Automated exposure control, adjustment of the mA and k V according to patient size, and iterative reconstruction. Unless otherwise specified, incidental findings do not require dedicated imaging follow-up. COMPARISON: No prior exam. FINDINGS: LOWER CHEST: The visualized lung bases are clear. LIVER: Normal in size and contour. No focal lesion. BILIARY SYSTEM: No suspicious abnormalities. SPLEEN: Normal size. No focal lesion. PANCREAS: No mass, ductal dilation, or coleman-pancreatic fluid. ADRENALS: Normal; no mass. KIDNEYS: Normal size and contour. No hydronephrosis. URINARY BLADDER: Unremarkable. GASTROINTESTINAL TRACT: No evidence of free air, significant intra-abdominal free fluid, bowel obstru ction or abscess. APPENDIX: Normal appendix. LYMPH NODES: No lymphadenopathy. MUSCULOSKELETAL: No acute or suspicious osseous abnormality. ADDITIONAL FINDINGS: Mild retroperitoneal fat stranding at and slightly below the level of the aortic bifurcation, likely involving the prevertebral space at L4-5. No appreciable fluid collections. IMPRESSION: Mild retroperitoneal fat stranding at and slightly below the level of the aortic valve, likely involv ing the prevertebral space at L4-5. The findings are nonspecific, and differential considerations would include early discitis, or an inflammatory/arthritic process involving the disc or endplates, o r the retroperitoneum such as early retroperitoneal fibrosis, although this is considered less likely given absence of involvement of the aortic circumference. No other acute or concerning abnormalities seen in the abdomen or pelvis.
--- NOTE | 2023-12-09 23:03 | EDPHYS ---
Physician Documentation [facility] Name: Reid Landers Age: 38 yrs Sex: Male : 1985 Arrival Date: 12/09/2023 Time: 20:35 Bed 19 Private MD: ED Physician Pablo Momin HPI: 12/08 23:05 This 38 yrs old Male presents to ER via Ambulatory with complaints of kb Abdominal Pain, Low Back Pain. 23:05 Pt is a 38 year old male who presents for lower abdominal pain that radiates to back. kb States pain began last night and has been constant. Aggravated by the movement of changing positions from sitting to standing. Denies n/v/d, fever, urinary symptoms. Historical: - Allergies: 20:44 No Known Allergies; vc1 - Home Meds: 20:44 None [Active]; vc1 - PMHx: 20:44 None; vc1 - PSHx: 20:44 None; vc1 - Immunization history:: Adult Immunizations up to date. - Infectious Disease History:: Denies. - Social history:: Smoking status: Patient denies any tobacco usage or history of. Patient/guardian denies using alcohol, street drugs. ROS: 23:05 Constitutional: As per HPI kb Exam: 23:05 Constitutional: This is a well developed, well nourished patient who is awake, alert, kb and in no acute distress. Head/Face: Normocephalic, atraumatic. ENT: Moist Mucous membranes Cardiovascular: Regular rate Respiratory: Respirations even and unlabored. No increased work of breathing. Talking in full sentences Skin: Warm, dry with normal turgor. Normal color. MS/ Extremity: Pulses equal, no cyanosis. Neurovascular intact. Full, normal range of motion. Neuro: Awake and alert, GCS 15, oriented to person, place, time, and situation. Moves all extremities. Normal gait. 23:05 Abdomen/GI: Inspection: abdomen appears normal, Bowel sounds: normal, Palpation: soft, in all quadrants, mild abdominal tenderness, in the right lower quadrant, 23:05 Back: vertebral tenderness, is appreciated at L4 and L5, Vital Signs: 20:40 BP 152 / 102; Pulse 93; Resp 19 S; Temp 97.8(TE); Pulse Ox 100% ; Weight 90.72 kg (R); vc1 Height 5 ft. 8 in. (R); Pain 10/10; 21:10 BP 144 / 104; Pulse 80; Resp 17; Temp 97.8; Pulse Ox 98% on R/A; Pain 10/10; bm8 22:08 BP 141 / 102; Pulse 74; Resp 17; Temp 97.8; Pulse Ox 100% ; Pain 0/10; bm8 23:00 BP 144 / 104; Pulse 72; Resp 17; Temp 98; Pulse Ox 99% ; Pain 0/10; bm8 20:40 Body Mass Index 30.41 (90.72 kg, 172.72 cm) vc1 20:40 Pain Scale: Adult vc1 21:10 Pain Scale: Adult bm8 22:08 Pain Scale: Adult bm8 23:00 Pain Scale: Adult bm8 Abe Coma Score: 21:10 Eye Response: spontaneous(4). Motor Response: obeys commands(6). Verbal Response: bm8 oriented(5). Total: 15. 22:08 Eye Response: spontaneous(4). Motor Response: obeys commands(6). Verbal Response: bm8 oriented(5). Total: 15. 23:00 Eye Response: spontaneous(4). Motor Response: obeys commands(6). Verbal Response: bm8 oriented(5). Total: 15. MDM: 20:37 Patient medically screened. kb 23:04 Differential diagnosis: appendicitis, non-specific abd pain, Ureterolithiasis. Data kb reviewed: vital signs, nurses notes. Management of patient was discussed with the following: Dr Momin recommends outpatient treatment with antiinflammatories. Pt in agreement with this plan. Pt given strict return precautions. Verbal understanding received. . Counseling: I had a detailed discussion with the patient and/or guardian regarding the historical points, exam findings, and any diagnostic results supporting the discharge/admit diagnosis, lab results, radiology results, the need for outpatient follow up, a family practitioner, to return to the emergency department if symptoms worsen or persist or if there are any questions or concerns that arise at home. 12/08 20:41 Order name: CBC with Diff; Complete Time: 21:26 kb 12/08 20:41 Order name: CMP; Complete Time: 21:40 kb 12/08 20:41 Order name: Lipase; Complete Time: 21:40 kb 12/08 20:41 Order name: CT Abd/Pelvis - IV Contrast Only; Complete Time: 22:51 kb 12/08 20:41 Order name: IV Saline Lock; Complete Time: 21:09 kb 12/08 20:41 Order name: Labs collected and sent; Complete Time: 21:09 kb Administered Medications: 21:09 Drug: NS 0.9% IV 1000 ml IV at 1 bolus Per protocol; 1000 mL bolus Route: IV; Rate: 1 bm8 bolus; Site: left forearm; 22:07 Follow up: Response: No adverse reaction; IV Status: Completed infusion; IV Intake: bm8 1000ml 21:09 Drug: TORadol - Ketorolac IVP 15 mg IVP once Route: IVP; Site: left forearm; bm8 22:08 Follow up: Response: No adverse reaction bm8 21:09 Drug: Ondansetron IVP 4 mg IVP once; over 2 minutes Route: IVP; Site: left forearm; bm8 22:07 Follow up: Response: No adverse reaction bm8 Disposition: 23:52 Co-signature as Attending Physician, Pablo Momin MD I agree with the assessment sp4 and plan of care. I reviewed the patient's care provided by the Advanced Practice Provider and agree with the diagnosis and treatment plan. Disposition Summary: 12/09/23 23:03 Discharge Ordered Notes: Location: Home kb Condition: Stable kb Diagnosis - Lower abdominal pain, unspecified kb - Discitis, unspecified, lumbar region kb Followup: kb - With: Emergency Department - When: As needed - Reason: Worsening of condition Followup: kb - With: Private Physician - When: 2 - 3 days - Reason: Recheck today's complaints, Continuance of care, Re-evaluation by your physician Discharge Instructions: - Discharge Summary Sheet kb - Acute Back Pain, Adult kb - Abdominal Pain, Adult, [id number] kb Forms: - Medication Reconciliation Form kb - Antibiotic Education kb - Prescription Opioid Use kb - Patient Portal Instructions kb - Leadership Thank You Letter kb Prescriptions: - Ibuprofen 800 mg Oral Tablet - take 1 tablet ORAL route every 8 hours As needed take with food; 30 tablet; kb Refills: 0, Product Selection Permitted Signatures: Dispatcher [employer] Jennifer Mortensen, SCALER PACKER-C SCALER PACKER-Deanne Earl, RN RN vc1 Pablo Momin MD MD sp4 Myles Wheeler, JUSTYN RN bm8
--- NOTE | 2023-12-09 23:03 | ER ---
Nurse's Notes [facility] Name: Reid Landers Age: 38 yrs Sex: Male : 1985 Arrival Date: 12/09/2023 Time: 20:35 Bed 19 Private MD: Diagnosis: Lower abdominal pain, unspecified;Discitis, unspecified, lumbar region Presentation: 12/08 20:40 Chief complaint: Patient states: lower abdominal pain radiating to low back since last vc1 night. Coronavirus screen: At this time, unable to obtain information related to travel outside the [place] At this time, the client does not indicate any symptoms associated with coronavirus-19. Ebola Screen: No symptoms or risks identified at this time. Initial Sepsis Screen: Does the patient meet any 2 criteria? No. Patient's initial sepsis screen is negative. Does the patient have a suspected source of infection? No. Patient's initial sepsis screen is negative. Risk Assessment: Do you want to hurt yourself or someone else? Patient reports no desire to harm self or others. Onset of symptoms was December 08, 2023. 20:40 Method Of Arrival: Ambulatory vc1 20:40 Acuity: CRISTHIAN 3 vc1 Triage Assessment: 20:44 General: Appears in no apparent distress. uncomfortable, Behavior is calm, cooperative. vc1 Pain: Complains of pain in right lower quadrant and left lower quadrant Pain radiates to low back area. EENT: No deficits noted. No signs and/or symptoms were reported regarding the EENT system. Neuro: No deficits noted. Schmitz Agitation-Sedation Scale (RASS): 0 - Alert and Calm Level of Consciousness is awake, alert, obeys commands, Oriented to person, place, time, situation. Cardiovascular: No deficits noted. Denies chest pain, shortness of breath, Capillary refill < 3 seconds Clubbing of nail beds is absent JVD is absent Patient's skin is warm and dry. Respiratory: No deficits noted. Airway is patent Respiratory effort is even, unlabored, Respiratory pattern is regular, symmetrical. GI: Abdomen is flat, non-distended, Abd is soft X 4 quads Abdomen is tender to palpation in suprapubic area and right lower quadrant. : No deficits noted. No signs and/or symptoms were reported regarding the genitourinary system. Derm: No deficits noted. No signs and/or symptoms reported regarding the dermatologic system. Skin is intact, is healthy with good turgor, Skin is dry, Skin is normal, Skin temperature is warm. Musculoskeletal: Circulation, motion, and sensation intact. Range of motion: intact in all extremities. Historical: - Allergies: 20:44 No Known Allergies; vc1 - Home Meds: 20:44 None [Active]; vc1 - PMHx: 20:44 None; vc1 - PSHx: 20:44 None; vc1 - Immunization history:: Adult Immunizations up to date. - Infectious Disease History:: Denies. - Social history:: Smoking status: Patient denies any tobacco usage or history of. Patient/guardian denies using alcohol, street drugs. Screenin:10 [facility] ED Fall Risk Assessment (Adult) History of falling in the last 3 months, bm8 including since admission No falls in past 3 months (0 pts) Confusion or Disorientation No (0 pts) Intoxicated or Sedated No (0 pts) Impaired Gait No (0 pts) Mobility Assist Device Used No (0 pt) Altered Elimination No (0 pt) Score/Fall Risk Level 0 - 2 = Low Risk Oriented to surroundings, Maintained a safe environment, Educated pt \T\ family on fall prevention, incl call for assistance when getting out of bed, Assessed \T\ reinforced patient's understanding of fall precautions, Hourly rounding (assess needs \T\ fall precautionary measures) done, Used ambulatory aids as needed (educated on \T\ assisted with), Used gait belt as appropriate. Abuse screen: Denies threats or abuse. Nutritional screening: No deficits noted. Tuberculosis screening: No symptoms or risk factors identified. Assessment: 21:10 General: Appears in no apparent distress. uncomfortable, Behavior is calm, cooperative, bm8 appropriate for age. Pain: Complains of pain in right low back Pain radiates to right lower quadrant Pain currently is 10 out of 10 on a pain scale. Neuro: No deficits noted. Level of Consciousness is awake, alert, obeys commands, Oriented to person, place, time, situation, Appropriate for age. Cardiovascular: Denies chest pain, Capillary refill < 3 seconds in bilateral fingers Patient's skin is warm and dry. Respiratory: No deficits noted. Airway is patent Trachea midline Respiratory effort is even, unlabored, Respiratory pattern is regular, symmetrical. GI: Abdomen is flat, non-distended, Bowel sounds present X 4 quads. Abdomen is tender to palpation in right lower quadrant Reports lower abdominal pain, nausea, Pain is 10 out of 10 on a pain scale. since yesterday. : No signs and/or symptoms were reported regarding the genitourinary system. EENT: No signs and/or symptoms were reported regarding the EENT system. Derm: No signs and/or symptoms reported regarding the dermatologic system. Musculoskeletal: No signs and/or symptoms reported regarding the musculoskeletal system. 22:08 Reassessment: Patient appears in no apparent distress at this time. Patient and/or bm8 family updated on plan of care and expected duration. Pain level reassessed. Patient is alert, oriented x 3, equal unlabored respirations, skin warm/dry/pink. Patient states feeling better. Patient states symptoms have improved. Reassessment: pt denies pain as long as he doesn't move. Pain: Denies pain. 23:00 Reassessment: Patient appears in no apparent distress at this time. No changes from 8 previously documented assessment. Patient and/or family updated on plan of care and expected duration. Pain level reassessed. Patient is alert, oriented x 3, equal unlabored respirations, skin warm/dry/pink. Vital Signs: 20:40 BP 152 / 102; Pulse 93; Resp 19 S; Temp 97.8(TE); Pulse Ox 100% ; Weight 90.72 kg (R); vc1 Height 5 ft. 8 in. (R); Pain 10/10; 21:10 BP 144 / 104; Pulse 80; Resp 17; Temp 97.8; Pulse Ox 98% on R/A; Pain 10/10; bm8 22:08 BP 141 / 102; Pulse 74; Resp 17; Temp 97.8; Pulse Ox 100% ; Pain 0/10; bm8 23:00 BP 144 / 104; Pulse 72; Resp 17; Temp 98; Pulse Ox 99% ; Pain 0/10; bm8 20:40 Body Mass Index 30.41 (90.72 kg, 172.72 cm) vc1 20:40 Pain Scale: Adult vc1 21:10 Pain Scale: Adult bm8 22:08 Pain Scale: Adult bm8 23:00 Pain Scale: Adult bm8 Cook Coma Score: 21:10 Eye Response: spontaneous(4). Motor Response: obeys commands(6). Verbal Response: bm8 oriented(5). Total: 15. 22:08 Eye Response: spontaneous(4). Motor Response: obeys commands(6). Verbal Response: bm8 oriented(5). Total: 15. 23:00 Eye Response: spontaneous(4). Motor Response: obeys commands(6). Verbal Response: bm8 oriented(5). Total: 15. ED Course: 20:36 Patient arrived in ED. [email or web address] 20:37 Jennifer Silverio FNP-C is [facility] kb 20:37 Pablo Momin MD is Attending Physician. kb 20:44 Triage completed. vc1 20:44 Arm band placed on right wrist. vc1 20:55 Myles Wheeler, RN is Primary Nurse. bm8 21:10 Patient has correct armband on for positive identification. Bed in low position. Call bm8 light in reach. Side rails up X 1. Client placed on continuous cardiac and pulse oximetry monitoring. NIBP monitoring applied. Pulse ox on. NIBP on. Door closed. Noise minimized. Pillow given. Verbal reassurance given. Head of bed elevated. 21:10 No provider procedures requiring assistance completed. Initial lab(s) drawn, by me, bm8 sent to lab. Inserted saline lock: 20 gauge in left forearm, using aseptic technique. Blood collected. Flushed with 10 mL NS. Patient maintains SpO2 saturation greater than 95% on room air. 22:30 CT Abd/Pelvis - IV Contrast Only In Process Unspecified. EDMS 23:00 Provided Education on: post er care, Blood pressure monitoring for at home. Follow up bm8 with pcp. 23:00 IV discontinued, intact, bleeding controlled, No redness/swelling at site. Pressure bm8 dressing applied. Administered Medications: 21:09 Drug: NS 0.9% IV 1000 ml IV at 1 bolus Per protocol; 1000 mL bolus Route: IV; Rate: 1 bm8 bolus; Site: left forearm; 22:07 Follow up: Response: No adverse reaction; IV Status: Completed infusion; IV Intake: bm8 1000ml 21:09 Drug: TORadol - Ketorolac IVP 15 mg IVP once Route: IVP; Site: left forearm; bm8 22:08 Follow up: Response: No adverse reaction bm8 21:09 Drug: Ondansetron IVP 4 mg IVP once; over 2 minutes Route: IVP; Site: left forearm; bm8 22:07 Follow up: Response: No adverse reaction bm8 Medication: 21:10 VIS not applicable for this client. bm8 Intake: 22:07 IV: 1000ml; Total: 1000ml. bm8 Outcome: 23:00 Discharged to home ambulatory, bm8 23:00 Condition: stable 23:00 Discharge instructions given to patient, Instructed on discharge instructions, follow up and referral plans. no drinking with medication, no driving heavy equipment, medication usage, safety practices, Demonstrated understanding of instructions, follow-up care, Prescriptions given X 1, 23:03 Discharge ordered by . kb 23:11 Patient left the ED. bm8 Signatures: Dispatcher [employer] EDJennifer Barroso, TRAMPOLINE TEAM COACH-C TRAMPOLINE TEAM COACH-CkMagaly Chand [email or web address] Deanne Swartz RN RN vc1 Myles Wheeler RN RN bm8
[2023-12-10 02:20] VITALS: BP 144/104; TEMP 98; O2SAT 99
== END 2023-12-09 23:11 | disposition home or self-care (01) ==
LOC: ER 20:35
DX: R10.31 Right lower quadrant pain (principal); M46.46 Discitis, unspecified, lumbar region
CPT/HCPCS: 36415; 74177; 80053; 83690; 85025; J2405; J7030; Q9967

== ENCOUNTER 2024-06-15 20:34 | Emergency (ER) | payer OTHER, SELFPAY ==
--- OUTSIDE RECORDS SUMMARY | 2024-06-15 20:38 | XMS REPORT | Continuity of Care Document ---
Author Name Unknown Address [address] [place] [address] [facility] Address [address] [place] [address] Care Team Providers Care Production Control Manager Name Role Phone Pcp, Patient Does Not Have A Primary Care Physic clair BINU MCGINNIS Attending Clinician Unavailable Binu Sandoval Attending Clinician [phone] Doctor Unassigned, [place] Attending Clinician U navailable Problems Condition Name Condition Details Condition Category Status Onset Date Resolution Date Last Treatment Date Treating Clinician Comments Source No known active problems No known active problems Disease [facility] Allergies, Adverse Reactions, Alerts Allergy Name Allergy Type Status Severity Reaction(s) Onset Date Inactive Date Treating Clinician Comments Source NO KNOWN ALLERGIE S Drug Class Active [facility] Social History Social Habit Start Date Stop Date Quantity Comments Source Exposure to SARS-CoV-2 (event) 2021-11-02 00:00:00 2021-11-12 15:19:00 Not sure [facility] Alcohol intake 2021-11-12 00:00:00 2021-11-12 00:00:00 Lifetime non-drinker (finding) [facility] Tobacco use and exposure 2021-10-08 00:00:00 2021-10-08 00:00:00 Smokeless tobacco non-user [facility] Sex Assigned At 1985 00:00:00 1985 00:00:00 [facility] Smoking Status Start Date Stop Date Source Never smoked tobacco [facility] Medications Ordered Medication Name Filled Medication Name Start Date Stop Date Current Medication? Ordering Clinician Indication Dosage Frequency Signature (SIG) Comments Components Source triamcinolo ne acetonide (KENALOG) injection 40 mg 11-12 23:30: 00 11-12 22:21 :00 No [id number] 40mg [facility] No known medications 11-12 15:35: 14 No No known medication [facility] Vital Signs Vital Name Observation Time Observation Value Comments S trae Systolic blood pressure 2021-11-12 21:05:00 148 mm[Hg] [facility] Diastolic blood pressure 2021-11-12 21:05:00 92 mm[Hg] [facility] Heart rate 2021-11-12 21:05:00 102 /min [facility] Oxygen saturation in Arterial blood by Pulse oximetry 2021-11-12 21:05:00 99 /min [facility] Body weight 2021-11-12 20:34:00 94.484 kg [facility] BMI 2021-11-12 20:34:00 31.67 kg/m2 [facility] Procedures Procedure Date / Time Performed Performing Clinician Source PATIENT FINANCIAL RESPONSIBILITY - ALL FORMS 2021-11-15 05:01:00 Doctor Unassigned, [place] [facility] Encounters Start Date/Time End Date/Time Encounter Type Admission Type Attending Clinicians Care Facility Care Department Encounter ID Source 2021-12-26 11:15:00 2021-12-26 11:15:00 Outpatient BINU KUMAR [facility] [id number] [facility] 2021-12-25 00:00:00 2021-12-25 00:00:00 Letter (Out) Binu Mcginnis [facility] 1.2.840.114 350.1.13.10 4.2.7.2.686 [id number] [facility] 2021-12-12 08:15:00 2021-12-12 08:15:00 Outpatient BINU KUMAR [facility] [id number] [facility] 2021-12-11 00:00:00 2021-12-11 00:00:00 Letter (Out) [facility] 1.2.840.114 350.1.13.10 4.2.7.2.686 [id number] [facility] 2021-11-15 00:00:00 2021-11-15 00:00:00 Orders Only Doctor Unassigned, [place] [facility] 1.2.840.114 350.1.13.10 4.2.7.2.686 [id number] [facility] 2021-11-15 00:00:00 2021-11-15 00:00:00 Letter (Out) [facility] 1.2.840.114 350.1.13.10 4.2.7.2.686 [id number] [facility] 2021-11-12 15:30:00 2021-11-12 17:26:04 Outpatient R RAHEL BINU [facility] [id number] [facility] 2021-11-12 15:30:00 2021-11-12 17:26:04 Office Visit [facility] 1.2.840.114 350.1.13.10 4.2.7.2.686 [id number] [facility] 2021-11-12 15:30:00 2021-11-12 15:30:00 Outpatient Markie MCGINNIS BINU [facility] [id number] [facility] 2021-10-23 16:00:00 2021-10-23 16:00:00 Outpatient Markie MCGINNIS [facility] [id number] [facility] 2021-10-23 08:30:00 2021-10-23 08:30:00 Outpatient Markie MCGINNIS [facility] [id number] [facility] 2021-10-21 00:00:00 2021-10-21 00:00:00 [facility] 1.2.840.114 350.1.13.10 4.2.7.2.686 [id number] [facility] 2021-10-17 00:00:00 2021-10-17 00:00:00 Letter (Out) Ra[facility] JONELLE?[facility] 1..840.114 350.1.13.10 4.2.7.2.686 [id number] [facility] 2021-10-09 00:00:00 2021-10-09 00:00:00 Telephone Rahel [facility] JONELLE?[facility] 1..840.114 350.1.13.10 4.2.7.2.686 [id number] [facility] 2021-10-08 15:00:00 2021-10-08 16:27:42 Outpatient R MCGINNISBINU [facility] [id number] [facility] 2021-10-08 15:00:00 2021-10-08 16:27:42 Office Visit Rahel [facility] JONELLE?[facility] 1..840.114 350.1.13.10 4.2.7.2.686 [id number] [facility] 2021-10-08 00:00:00 2021-10-08 00:00:00 Letter (Out) [facility] JONELLE?[facility] 1.2.840.114 350.1.13.10 4.2.7.2.686 [id number] [facility] 2021-10-08 00:00:00 2021-10-08 00:00:00 Orders Only Doctor Unassigned, [place] [facility] [id number] 350.1.13.10 4.2.7.2.686 [id number] [facility]
[2024-06-15] MEDS ORDERED: ONDANSETRON 4 MG (ODT) TAB ONE (21:14)
[2024-06-15] MEDS ORDERED: HYDROCODONE/APAP 5/325 MG TAB ONE (21:15)
[2024-06-15] MEDS ORDERED: POTASSIUM 25 MEQ EFFERV TAB ONE (21:45)
--- NOTE | 2024-06-15 21:58 | RAD REPORT ---
EXAMINATION: Tib Fib Left CLINICAL INDICATION: Leg pain FINDINGS: Nondisplaced fracture involves the distal left tibial diaphysis extending 7 cm to the level of the an kle and tibial articulating surface. Mild displacement of the medial malleolus of the tibia is present. No dislocation seen.
--- NOTE | 2024-06-15 22:00 | RAD REPORT ---
Exam:Foot Left 3 View CLINICAL HISTORY: Left foot pain FINDINGS: No fracture or dislocation seen involving the left foot. 1 mm radiopaque foreign body within the plantar soft tissues adjacent to the second proximal phalanx
--- NOTE | 2024-06-15 22:35 | ER ---
Nurse's Notes [facility] Name: Reid Landers Age: 38 yrs Sex: Male : 1985 Arrival Date: 06/15/2024 Time: 20:34 Bed 16 Private MD: Diagnosis: Nondisplaced fracture of medial malleolus of left tibia, initial encounter for closed fracture Presentation: 06/15 20:46 Chief complaint: Patient states: left leg pain after jumping down from a fence. cp4 Coronavirus screen: Client denies travel out of the [place] in the last 14 days. At this time, the client does not indicate any symptoms associated with coronavirus-19. Ebola Screen: Patient negative for fever greater than or equal to 101.5 degrees Fahrenheit, and additional compatible Ebola Virus Disease symptoms Patient denies exposure to infectious person. Patient denies travel to an Ebola-affected area in the 21 days before illness onset. No symptoms or risks identified at this time. Initial Sepsis Screen: Does the patient meet any 2 criteria? HR > 90 bpm. No. Patient's initial sepsis screen is negative. Does the patient have a suspected source of infection? No. Patient's initial sepsis screen is negative. Risk Assessment: Do you want to hurt yourself or someone else? Patient reports no desire to harm self or others. Onset of symptoms was June 15, 2024. 20:46 Method Of Arrival: Ambulatory cp4 20:46 Acuity: CRISTHIAN 4 cp4 Triage Assessment: 20:48 General: Appears in no apparent distress. uncomfortable, Behavior is calm, cooperative, cp4 appropriate for age. Pain: Complains of pain in left leg Pain does not radiate. Pain currently is 10 out of 10 on a pain scale. Musculoskeletal: Reports pain in left leg. Injury Description: fall. Historical: - Allergies: 20:48 No Known Allergies; cp4 - Immunization history:: Adult Immunizations up to date. - Infectious Disease History:: Denies. - Social history:: Smoking status: Patient denies any tobacco usage or history of. Screenin:00 [facility] ED Fall Risk Assessment (Adult) History of falling in the last 3 months, rg5 including since admission No falls in past 3 months (0 pts) Confusion or Disorientation No (0 pts) Intoxicated or Sedated No (0 pts) Impaired Gait No (0 pts) Mobility Assist Device Used No (0 pt) Altered Elimination No (0 pt) Score/Fall Risk Level 0 - 2 = Low Risk Oriented to surroundings, Maintained a safe environment, Hourly rounding (assess needs \T\ fall precautionary measures) done. Abuse screen: Denies threats or abuse. Nutritional screening: No deficits noted. Tuberculosis screening: No symptoms or risk factors identified. Assessment: 21:00 General: Appears in no apparent distress. comfortable, Behavior is calm, cooperative, rg5 appropriate for age. Pain: Complains of pain in left foot Pain currently is 10 out of 10 on a pain scale. Quality of pain is described as aching, Pain began 3 hours ago. Neuro: Level of Consciousness is awake, alert, obeys commands, Oriented to person, place, time, situation. Cardiovascular: Patient's skin is warm and dry. Rhythm is sinus tachycardia. Respiratory: Airway is patent Trachea midline Respiratory effort is even, unlabored. GI: Abdomen is round non-distended, Abd is soft and non tender. : No signs and/or symptoms were reported regarding the genitourinary system. EENT: No deficits noted. Derm: Skin is intact, Skin is dry, Skin is normal, Skin temperature is warm. Musculoskeletal: Circulation, motion, and sensation intact. Range of motion: intact in all extremities, Swelling present in left foot and left lateral ankle. 22:04 Reassessment: No changes from previously documented assessment. Patient and/or family rg5 updated on plan of care and expected duration. Pain level reassessed. Patient is alert, oriented x 3, equal unlabored respirations, skin warm/dry/pink. Vital Signs: 20:46 BP 149 / 103; Pulse 105; Resp 18; Temp 98.9; Pulse Ox 97% ; Weight 95.25 kg; Height 5 cp4 ft. 8 in. ; Pain 10/10; 20:59 BP 153 / 63; Pulse 101; Resp 19; Temp 98.8; Pulse Ox 96% on R/A; Pain 10/10; rg5 21:30 BP 164 / 115; Pulse 101; Resp 18; Pain 10/10; rg5 22:03 BP 136 / 84; Pulse 99; Resp 18; Pulse Ox 97% on R/A; Pain 10/10; rg5 23:04 BP 130 / 87; Pulse 89; Resp 18; Pulse Ox 97% on R/A; Pain 6/10; rg5 20:46 Body Mass Index 31.93 (95.25 kg, 172.72 cm) cp4 20:46 Pain Scale: Adult cp4 20:59 Pain Scale: Adult rg5 21:30 Pain Scale: Adult rg5 22:03 Pain Scale: Adult rg5 23:04 Pain Scale: Adult rg5 ED Course: 20:41 Patient arrived in ED. gm2 20:48 Triage completed. cp4 20:48 Arm band placed on right wrist. Patient placed in waiting room. cp4 20:50 Ashlee Tay PA-C is PHCP. sb4 20:50 Ed Farrell MD is Attending Physician. sb4 20:53 Carlos Gant, JUSTYN is Primary Nurse. rg5 21:00 Patient has correct armband on for positive identification. Bed in low position. Call rg5 light in reach. Door closed. Noise minimized. 21:00 No provider procedures requiring assistance completed. rg5 21:50 Foot Left 3 View XRAY In Process Unspecified. EDMS 21:50 Tib Fib Left XRAY In Process Unspecified. EDMS 22:33 Nolan Uribe MD is Referral Physician. sb4 23:05 Provided Education on: post er care. rg5 23:05 IV discontinued, bleeding controlled, No redness/swelling at site. Pressure dressing rg5 applied. Administered Medications: 21:00 Drug: Ondansetron PO 4 mg PO once Route: PO; rg5 21:39 Follow up: Response: No adverse reaction; Pain is decreased rg5 21:10 Drug: HYDROcodone-acetaminophen PO 5 mg-325 mg 2 tabs PO once Route: PO; rg5 21:39 Follow up: Response: No adverse reaction; Pain is decreased rg5 22:30 Drug: morphine IM 4 mg IM once Route: IM; Site: left deltoid; rg5 23:06 Follow up: Response: No adverse reaction; Pain is decreased rg5 Medication: 21:00 VIS not applicable for this client. rg5 Outcome: 22:34 Discharge ordered by . sb4 23:05 Discharged to home via wheelchair, rg5 23:05 Condition: stable 23:05 Discharge instructions given to patient, family, Instructed on discharge instructions, follow up and referral plans. Demonstrated understanding of instructions, follow-up care, medications, Prescriptions given X 3, 23:40 Patient left the ED. rg5 Signatures: Dispatcher [employer] EDAshlee Salgado, LION catalan4 Summer Patel cp4 Monika Morris gm2 Carlos Gnat, RN RN rg5
--- NOTE | 2024-06-15 22:35 | EDPHYS ---
Physician Documentation [facility] Name: Reid Landers Age: 38 yrs Sex: Male : 1985 Arrival Date: 06/15/2024 Time: 20:34 Bed 16 Private MD: ED Physician Ed Farrell HPI: 06/16 00:25 This 38 yrs old Male presents to ER via Ambulatory with complaints of Leg sb4 Pain, Leg Injury. 00:25 The patient presents with an injury, pain, that is acute. The complaints affect the sb4 left garcia and anterior aspect of left ankle. Context: The problem was sustained outdoors, resulted from the patient falling, while jumping, the patient is not able to bear weight, the patient is not able to ambulate, Problem is a result from a previous injury: No. Onset: The symptoms/episode began/occurred just prior to arrival. Modifying factors: The symptoms are alleviated by nothing. the symptoms are aggravated by movement, weight bearing. Treatment prior to arrival includes: no previous treatment. Historical: - Allergies: 06/15 20:48 No Known Allergies; cp4 - Immunization history:: Adult Immunizations up to date. - Infectious Disease History:: Denies. - Social history:: Smoking status: Patient denies any tobacco usage or history of. ROS: 06/16 00:25 Constitutional: Negative for fever, chills, and weight loss, sb4 MS/extremity: Positive for injury or acute deformity, pain, swelling, of the left lateral ankle, left medial ankle and anterior aspect of left ankle, All other systems are negative, Exam: 00:25 Constitutional: This is a well developed, well nourished patient who is awake, alert, sb4 and in no acute distress. Head/Face: Normocephalic, atraumatic. Eyes: Extra-ocular motions intact. Periorbital areas with no swelling, redness, or edema. ENT: Mucous membranes moist. Respiratory: No increased work of breathing, no retractions or nasal flaring. Skin: Warm, dry with normal turgor. Normal color with no rashes, no lesions, and no evidence of cellulitis. 00:25 Musculoskeletal/extremity: ROM: limited active range of motion, limited passive range of motion due to pain, Circulation is intact in all extremities. Pulses: are normal with no appreciated deficits, Perfusion: the extremity is normally perfused throughout, Sensation intact. Vital Signs: 06/15 20:46 BP 149 / 103; Pulse 105; Resp 18; Temp 98.9; Pulse Ox 97% ; Weight 95.25 kg; Height 5 cp4 ft. 8 in. ; Pain 10/10; 20:59 BP 153 / 63; Pulse 101; Resp 19; Temp 98.8; Pulse Ox 96% on R/A; Pain 10/10; rg5 21:30 BP 164 / 115; Pulse 101; Resp 18; Pain 10/10; rg5 22:03 BP 136 / 84; Pulse 99; Resp 18; Pulse Ox 97% on R/A; Pain 10/10; rg5 23:04 BP 130 / 87; Pulse 89; Resp 18; Pulse Ox 97% on R/A; Pain 6/10; rg5 20:46 Body Mass Index 31.93 (95.25 kg, 172.72 cm) cp4 20:46 Pain Scale: Adult cp4 20:59 Pain Scale: Adult rg5 21:30 Pain Scale: Adult rg5 22:03 Pain Scale: Adult rg5 23:04 Pain Scale: Adult rg5 MDM: 20:50 Medical Screening Exam initiated sb4 06/16 00:27 Data reviewed: vital signs, nurses notes, radiologic studies, and as a result, I will sb4 discharge patient. Counseling: I had a detailed discussion with the patient and/or guardian regarding the historical points, exam findings, and any diagnostic results supporting the discharge/admit diagnosis, radiology results, the need for outpatient follow up, a orthopedic surgeon, to return to the emergency department if symptoms worsen or persist or if there are any questions or concerns that arise at home. 06/15 21:08 Order name: Foot Left 3 View XRAY; Complete Time: 22:01 sb4 06/15 21:08 Order name: Tib Fib Left XRAY; Complete Time: 21:59 sb4 06/15 22:32 Order name: Long Leg Splint: Posterior w/ Stirrup; Complete Time: 22:59 sb4 Administered Medications: 06/15 21:00 Drug: Ondansetron PO 4 mg PO once Route: PO; rg5 21:39 Follow up: Response: No adverse reaction; Pain is decreased rg5 21:10 Drug: HYDROcodone-acetaminophen PO 5 mg-325 mg 2 tabs PO once Route: PO; rg5 21:39 Follow up: Response: No adverse reaction; Pain is decreased rg5 22:30 Drug: morphine IM 4 mg IM once Route: IM; Site: left deltoid; rg5 23:06 Follow up: Response: No adverse reaction; Pain is decreased rg5 Disposition Summary: 06/15/24 22:34 Discharge Ordered Notes: Location: Home sb4 Problem: new sb4 Symptoms: have improved sb4 Condition: Stable sb4 Diagnosis - Nondisplaced fracture of medial malleolus of left tibia, initial encounter for sb4 closed fracture Followup: sb4 - With: Nolan Uribe MD - When: 1 week - Reason: Recheck today's complaints, Re-evaluation by your physician Discharge Instructions: - Discharge Summary Sheet sb4 - Tibial Fracture, Adult, [id number] sb4 Forms: - Prescription Opioid Use sb4 - Patient Portal Instructions sb4 - Leadership Thank You Letter sb4 Prescriptions: - Ibuprofen 800 mg Oral Tablet - take 1 tablet ORAL route every 8 hours As needed take with food; 30 tablet; sb4 Refills: 0, Product Selection Permitted - Zofran 4 mg Oral Tablet - take 1 tablet ORAL route every 12 hours As needed; 20 tablet; Refills: 0, sb4 Product Selection Permitted - Tylenol-Codeine #3 300mg-30mg Oral tablet - take 1 tablet ORAL route every 4 hours As needed; 16 tablet; Refills: 0, sb4 Product Selection Permitted Signatures: Dispatcher [employer] Ashlee Santoro PA-C PA-C sb4 Summer Patel cp4 Carlos Gant, RN RN rg5 Corrections: (The following items were deleted from the chart) 21:09 21:09 Foot Left 3 View+RAD.RAD.BRZ ordered. EDMS EDMS 21: 21:09 Ankle Left 3 View+RAD.RAD.BRZ ordered. EDMS EDMS 21:09 21:09 Tib Fib Left+RAD.RAD.BRZ ordered. EDMS EDMS
[2024-06-15] MEDS ORDERED: MORPHINE 4 MG/ML SYR ONE (22:36)
[2024-06-15 23:46] VITALS: TEMP 98.8
[2024-06-15 23:49] VITALS: O2SAT 97
[2024-06-15 23:50] VITALS: BP 130/87
== END 2024-06-15 23:40 | disposition home or self-care (01) ==
LOC: ER 20:34
DX: S82.55XA Nondisplaced fracture of medial malleolus of left tibia, initial encounter for closed fracture (principal)
CPT/HCPCS: Q0162

== ENCOUNTER 2024-06-23 10:51 | Emergency (ER) | payer SELFPAY ==
--- OUTSIDE RECORDS SUMMARY | 2024-06-23 10:54 | XMS REPORT | Continuity of Care Document ---
Author Name Unknown Address [address] [place] [address] [facility] Address [address] [place] [address] Care Team Providers Care Machine Bunch Maker Name Role Phone Pcp, Patient Does Not Have A Primary Care Physic clair BINU MCGINNIS Attending Clinician Unavailable Binu Sandoval Attending Clinician [phone] Doctor Unassigned, [place] Attending Clinician U navailable Problems Condition Name Condition Details Condition Category Status Onset Date Resolution Date Last Treatment Date Treating Clinician Comments Source No known active problems No known active problems Disease [facility] Allergies, Adverse Reactions, Alerts Allergy Name Allergy Type Status Severity Reaction(s) Onset Date Inactive Date Treating Clinician Comments Source NO KNOWN ALLERGIE S Drug Class Active [facility] Social History Social Habit Start Date Stop Date Quantity Comments Source Exposure to SARS-CoV-2 (event) 2021-11-02 00:00:00 2021-11-12 15:19:00 Not sure [facility] Alcohol intake 2021-11-12 00:00:00 2021-11-12 00:00:00 Lifetime non-drinker (finding) [facility] Tobacco use and exposure 2021-10-08 00:00:00 2021-10-08 00:00:00 Smokeless tobacco non-user [facility] Sex Assigned At 1985 00:00:00 1985 00:00:00 [facility] Smoking Status Start Date Stop Date Source Never smoked tobacco [facility] Medications Ordered Medication Name Filled Medication Name Start Date Stop Date Current Medication? Ordering Clinician Indication Dosage Frequency Signature (SIG) Comments Components Source triamcinolo ne acetonide (KENALOG) injection 40 mg 11-12 23:30: 00 11-12 22:21 :00 No [id number] 40mg [facility] No known medications 11-12 15:35: 14 No No known medication [facility] Vital Signs Vital Name Observation Time Observation Value Comments S trae Systolic blood pressure 2021-11-12 21:05:00 148 mm[Hg] [facility] Diastolic blood pressure 2021-11-12 21:05:00 92 mm[Hg] [facility] Heart rate 2021-11-12 21:05:00 102 /min [facility] Oxygen saturation in Arterial blood by Pulse oximetry 2021-11-12 21:05:00 99 /min [facility] Body weight 2021-11-12 20:34:00 94.484 kg [facility] BMI 2021-11-12 20:34:00 31.67 kg/m2 [facility] Procedures Procedure Date / Time Performed Performing Clinician Source PATIENT FINANCIAL RESPONSIBILITY - ALL FORMS 2021-11-15 05:01:00 Doctor Unassigned, [place] [facility] Encounters Start Date/Time End Date/Time Encounter Type Admission Type Attending Clinicians Care Facility Care Department Encounter ID Source 2021-12-26 11:15:00 2021-12-26 11:15:00 Outpatient BINU KUMAR [facility] [id number] [facility] 2021-12-25 00:00:00 2021-12-25 00:00:00 Letter (Out) Binu Mcginnis [facility] 1.2.840.114 350.1.13.10 4.2.7.2.686 [id number] [facility] 2021-12-12 08:15:00 2021-12-12 08:15:00 Outpatient BINU KUMAR [facility] [id number] [facility] 2021-12-11 00:00:00 2021-12-11 00:00:00 Letter (Out) Rahel [facility] 1.2.840.114 350.1.13.10 4.2.7.2.686 [id number] [facility] 2021-11-15 00:00:00 2021-11-15 00:00:00 Orders Only Doctor Unassigned, [place] [facility] 1.2.840.114 350.1.13.10 4.2.7.2.686 [id number] [facility] 2021-11-15 00:00:00 2021-11-15 00:00:00 Letter (Out) Rahel [facility] 1.2.840.114 350.1.13.10 4.2.7.2.686 [id number] [facility] 2021-11-12 15:30:00 2021-11-12 17:26:04 Outpatient R RAHEL BINU [facility] [id number] [facility] 2021-11-12 15:30:00 2021-11-12 17:26:04 Office Visit Rahel [facility] 1.2.840.114 350.1.13.10 4.2.7.2.686 [id number] [facility] 2021-11-12 15:30:00 2021-11-12 15:30:00 Outpatient Markie MCGINNIS BINU [facility] [id number] [facility] 2021-10-23 16:00:00 2021-10-23 16:00:00 Outpatient Markie MCGINNIS [facility] [id number] [facility] 2021-10-23 08:30:00 2021-10-23 08:30:00 Outpatient Markie MCGINNIS [facility] [id number] [facility] 2021-10-21 00:00:00 2021-10-21 00:00:00 [facility] (Out[facility] 1.2.840.114 350.1.13.10 4.2.7.2.686 [id number] [facility] 2021-10-17 00:00:00 2021-10-17 00:00:00 Letter (Out) Rahel [facility] JONELLE?[facility] 1..840.114 350.1.13.10 4.2.7.2.686 [id number] [facility] 2021-10-09 00:00:00 2021-10-09 00:00:00 Telephone Rahel [facility] JONLELE?[facility] 1..840.114 350.1.13.10 4.2.7.2.686 [id number] [facility] 2021-10-08 15:00:00 2021-10-08 16:27:42 Outpatient R MCGINNISBINU [facility] [id number] [facility] 2021-10-08 15:00:00 2021-10-08 16:27:42 Office Visit Rahel [facility] JONELLE?[facility] 1..840.114 350.1.13.10 4.2.7.2.686 [id number] [facility] 2021-10-08 00:00:00 2021-10-08 00:00:00 Letter (Out) Rahel [facility] JONELLE?[facility] 1.2.840.114 350.1.13.10 4.2.7.2.686 [id number] [facility] 2021-10-08 00:00:00 2021-10-08 00:00:00 Orders Only Doctor Unassigned, [place] [facility] 1.2.840.114 350.1.13.10 4.2.7.2.686 [id number] [facility]
[2024-06-23 11:37] LABS: Absolute Eosinophils 0.1 K/uL (0-0.5); Absolute Lymphocytes (CBC) 1.9 K/uL (0.7-4.9); Absolute Monocytes 0.4 K/uL (0.1-1.3); Absolute Neutrophil 3.8 K/uL (1.8-8.0); Basophils % 0.3 % (0-1.3); Eosinophils % 1.6 % (0-4.4); Hematocrit 42.6 % (39.6-49.0); Hemoglobin 15.1 g/dL (13.6-17.9); Lymphocytes % 30.7 % (15.3-44.8); MCH 30.4 pg (27.0-35.0); MCHC 35.5 g/dL (32.0-36.0); MCV 85.6 fL (80-100); MPV 8.3 fL (7.6-11.3); Monocytes % 6.3 % (3.3-12.3); Neutrophils % 61.1 % (41.7-73.7); Nucleated Red Blood Cells % 0.1 % (0-0); Platelets 266 thou/uL (152-406); RBC Red Blood Cell Count 4.97 M/uL (4.33-5.43); Red Cell Distribution Width 13.1 % (12.1-15.2)
[2024-06-23 11:47] LABS: Barbiturates NEGATIVE (NEGATIVE); Benzodiazepines NEGATIVE (NEGATIVE); Cocaine NEGATIVE (NEGATIVE); METHAMPHETAM NEGATIVE (NEGATIVE); Methadone NEGATIVE (NEGATIVE); Opiates POSITIVE (NEGATIVE); Phencyclidine NEGATIVE (NEGATIVE); THC Cannibis NEGATIVE (NEGATIVE)
[2024-06-23 11:58] LABS: ALT/SGPT 36 U/L (16-61); AST/SGOT 15 U/L (15-37); Albumin 3.7 g/dL (3.4-5.0); Albumin/Globulin Ratio 0.9 (1.1-1.8); Alkaline Phosphatase 69 U/L (45-117); Anion Gap 5.8 mEq/L (5.0-15.0); BUN Blood Urea Nitrogen 13 mg/dL (7-18); Bicarbonate 28 mEq/L (21-32); Bilirubin Total 0.4 mg/dL (0.2-1.0); Globulin 4.1 g/dL (2.3-3.5); Glomerular Filtration Rate 117 ml/min (=/>90); Glucose Level 103 mg/dL (74-106); Potassium 3.8 mEq/L (3.5-5.1); Protein, Total 7.8 g/dL (6.4-8.2); Sodium Level 137 mEq/L (136-145)
[2024-06-23 11:59] LABS: Influenza A Ag Negative; Influenza B Ag Negative; SARS-CoV-2 Antigen Rapid Res Negative (Negative)
[2024-06-23 11:59] LABS: Bilirubin Direct < 0.2 mg/dL (0-0.2); Bilirubin Indirect, Calculated 0.2 mg/dL (0.2-0.8)
--- NOTE | 2024-06-23 12:18 | RAD REPORT ---
Exam:Ankle Left 3 View HISTORY: left ankle pain FINDINGS: Nondisplaced fracture of the distal diaphysis extending to the metaphysis and epiphysis left tibia ag ain demonstrated. Comparison is made to June 15, 2024 x-ray. The fracture involves the medial malleolus in which there is mild displacement. No dislocation is seen.
--- NOTE | 2024-06-23 20:33 | ER ---
Nurse's Notes [facility] Name: Reid Landers Age: 38 yrs Sex: Male : 1985 Arrival Date: 06/23/2024 Time: 10:51 Bed 23 Private MD: Diagnosis: Suicidal ideations Presentation: 06/23 10:56 Chief complaint: EMS states: Toned out to patient home for SI by family. Pt reports ld1 taking unknown pills yesterday. PD reports pt saying "I want to kill myself, yesterday I took a bunch of pills and it was unsuccessful." "Everyday I wake up, killing myself is on my mind." LAWRENCE placed at this time by officer Clyde. Coronavirus screen: At this time, the client does not indicate any symptoms associated with coronavirus-19. Ebola Screen: No symptoms or risks identified at this time. Risk Assessment: Do you want to hurt yourself or someone else? Patient reports no desire to harm self or others. Onset of symptoms was June 23, 2024. 10:56 Method Of Arrival: EMS: [facility] ld1 10:56 Acuity: CRISTHIAN 2 ld1 06/24 12:09 Initial Sepsis Screen: Does the patient meet any 2 criteria? No. Patient's initial ap3 sepsis screen is negative. Does the patient have a suspected source of infection? No. Patient's initial sepsis screen is negative. Triage Assessment: 06/23 10:56 General: Appears in no apparent distress. comfortable, Behavior is calm, cooperative, ld1 appropriate for age. Pain: Denies pain. EENT: No signs and/or symptoms were reported regarding the EENT system. Neuro: Level of Consciousness is awake, alert, obeys commands, Oriented to person, place, time, situation. Cardiovascular: Capillary refill < 3 seconds Patient's skin is warm and dry. Respiratory: Airway is patent Respiratory effort is even, unlabored. GI: Abdomen is flat, non-distended. : No signs and/or symptoms were reported regarding the genitourinary system. Derm: No signs and/or symptoms reported regarding the dermatologic system. Musculoskeletal: No signs and/or symptoms reported regarding the musculoskeletal system. Historical: - Allergies: 11:02 No Known Allergies; ld1 - Home Meds: 11:02 None [Active]; ld1 - PMHx: 11:02 Seizure; ld1 - PSHx: 11:02 None; ld1 - Immunization history:: Adult Immunizations up to date. - Infectious Disease History:: Denies. - Social history:: Smoking status: Patient denies any tobacco usage or history of. Screenin:00 [facility] ED Fall Risk Assessment (Adult) History of falling in the last 3 months, lg3 including since admission No falls in past 3 months (0 pts) Confusion or Disorientation No (0 pts) Intoxicated or Sedated No (0 pts) Impaired Gait Yes (1 pt) Mobility Assist Device Used Yes (1 pt) Altered Elimination No (0 pt) Score/Fall Risk Level 0 - 2 = Low Risk Oriented to surroundings, Maintained a safe environment, Educated pt \\T\\ family on fall prevention, incl call for assistance when getting out of bed, Assessed \\T\\ reinforced patient's understanding of fall precautions, Provided non-skid footwear. Abuse screen: Denies threats or abuse. Denies injuries from another. Nutritional screening: No deficits noted. Tuberculosis screening: No symptoms or risk factors identified. Assessment: 11:00 Reassessment: PD removed dagger from patient home that was next to patient. called ld1 PD because patient has extremely suicidal due to loss of job and marital problems. SI precautions in place at this time. Sitter at bedside. Room completely empty of belongings. Patient placed in paper scrubs. SI paperwork completed at this time. 19:00 General: Appears in no apparent distress. comfortable, Behavior is calm, cooperative. lg3 Pain: Denies pain. Neuro: No deficits noted. Schmitz Agitation-Sedation Scale (RASS): 0 - Alert and Calm Level of Consciousness is awake, alert, obeys commands, Oriented to person, place, time, situation. Cardiovascular: No deficits noted. Denies chest pain, shortness of breath, Capillary refill < 3 seconds Clubbing of nail beds is absent JVD is absent Patient's skin is warm and dry. Respiratory: No deficits noted. Airway is patent Respiratory effort is even, unlabored, Respiratory pattern is regular, symmetrical. GI: No deficits noted. No signs and/or symptoms were reported involving the gastrointestinal system. : No signs and/or symptoms were reported regarding the genitourinary system. EENT: No deficits noted. No signs and/or symptoms were reported regarding the EENT system. Derm: No deficits noted. No signs and/or symptoms reported regarding the dermatologic system. Skin is intact, is healthy with good turgor, Skin is dry, Skin is normal, Skin temperature is warm. Musculoskeletal: Circulation, motion, and sensation intact. Range of motion: intact in all extremities, splint to left foot noted. 06/24 03:41 Reassessment: Patient appears in no apparent distress at this time. No changes from lg3 previously documented assessment. Patient and/or family updated on plan of care and expected duration. Pain level reassessed. Patient is alert, oriented x 3, equal unlabored respirations, skin warm/dry/pink. 07:00 Reassessment:. General: Appears in no apparent distress. comfortable, Behavior is calm. ap3 Respiratory: Airway is patent Respiratory effort is even, unlabored, Respiratory pattern is regular, symmetrical. 08:00 Reassessment: No changes from previously documented assessment. ap3 10:06 Reassessment: Patient and/or family updated on plan of care and expected duration. Pain ap3 level reassessed. Patient is alert, oriented x 3, equal unlabored respirations, skin warm/dry/pink. Pain: Complains of pain in left leg Pain currently is 6 out of 10 on a pain scale. 11:02 Reassessment: No changes from previously documented assessment. ap3 12:07 Reassessment: mental health deputy at bedside. ap3 Psych: 06/23 19:00 [place] Suicide Severity Screening: In the past month, have you wished you were lg3 or wished you could go to sleep and not wake up? Patient responds "yes." "In the past month, have you actually had any thoughts of killing yourself?" Patient responds "yes." "In your lifetime, have you ever done anything, started to do anything, or prepared to do anything to end your life?" Patient responds "yes.". Subjective: Patient's mood is sad, hopeless, Delusions are denied, Hallucinations are denied Having thoughts of suicide. Plan for suicide is overdose. Objective: Patient is cooperative, using poor eye contact, Speech is normal, Affect is appropriate. Interventions: Removed personal items and placed in bag. Patient placed in hospital gown. Belonging list filled out. Safety Checks: Personal items have been removed. Pt has been placed in a hallway bed/chair. No visitors are present at this time. Pt denies substance abuse. Commitment: Patient will be an involuntary commitment. Commitment papers completed. 06/24 07:00 [place] Suicide Severity Screening: In the past month, have you wished you were ap3 or wished you could go to sleep and not wake up? Patient responds "yes." "In the past month, have you actually had any thoughts of killing yourself?" Patient responds "yes." "In your lifetime, have you ever done anything, started to do anything, or prepared to do anything to end your life?" Patient responds "yes.". Subjective: Patient's mood is hopeless, Delusions are denied, Hallucinations are denied Having thoughts of suicide. Objective: Patient is cooperative, using poor eye contact, Speech is normal, Affect is appropriate. Interventions: Removed personal items and placed in bag. Patient placed in hospital gown. Belonging list filled out. Safety Checks: No visitors are present at this time. Pt denies substance abuse. Vital Signs: 06/23 13:47 BP 145 / 91; Pulse 64; Resp 18; Temp 97.6(TE); Pulse Ox 100% on R/A; Weight 95.25 kg; ld1 Height 5 ft. 10 in. ; Pain 7/10; 20:38 BP 163 / 106; Pulse 76; Resp 18; Pulse Ox 98% ; kmf 06/24 12:16 BP 154 / 110; Pulse 85; Resp 17; Pulse Ox 99% ; bc6 06/23 13:47 Body Mass Index 30.13 (95.25 kg, 177.8 cm) ld1 06/23 13:47 Pain Scale: Adult ld1 ED Course: 06/23 10:53 Patient arrived in ED. bd 10:54 Quita Decker MD is Attending Physician. sw6 10:56 Arm band placed on right wrist. ld1 10:59 Triage completed. ld1 11:02 No provider procedures requiring assistance completed. Maintain EMS IV. Dressing ld1 intact. Good blood return noted. Site clean \\T\\ dry. Gauge \\T\\ site: 20G RAC. 11:16 Urine Drug Screen Sent. ld1 11:57 Nancy Lynne RN is Primary Nurse. ld1 12:04 Ankle Left 3 View In Process Unspecified. EDMS 13:20 Orthoglass splint: stirrup splint applied on left leg. ld1 13:57 contacted [facility] to have screener evaluate pt. bd 17:05 emely from [facility] will be here around 1830. bd 18:00 rep from [facility] called, will be delayed is having car trouble. bd 18:21 faxed chart to [facility]. bd 19:00 Patient has correct armband on for positive identification. Bed in low position. lg3 19:07 Safety checks: Door open/sign placed on door: yes. Sitter present: Yes. kmf 20:45 Wound care: located on left leg ice pack applied. km 06/24 07:00 Patient has correct armband on for positive identification. Bed in low position. bc6 Patient placed in safety clothing door closed, curtain open for safety measures. patient sleeping ,room cleared. 07:01 Primary Nurse role handed off by Nancy Lynne RN jl7 10:30 faxed transfer warrant to Judge Tay's office to be signed. eb 10:40 received signed warrant from Judge Tay. eb 10:52 called the [facility]'s office to call the [facility] air traffic control equipment repairer eb for transport. 11:24 [facility] called said he will be here in 35 minutes.. eb 12:09 IV discontinued, intact, bleeding controlled, No redness/swelling at site. Pressure ap3 dressing applied. 12:10 Provided Education on: medications prior to administration . ap3 Administered Medications: 10:06 Drug: Ketorolac IVP 15 mg IVP once Route: IVP; Site: right forearm; ap3 12:09 Follow up: Response: No adverse reaction; Pain is decreased ap3 Medication: 06/23 19:00 VIS not applicable for this client. lg3 Outcome: 20:32 ER care complete, transfer ordered by . berta 06/24 12:13 Discharged to [facility] with [facility] ap3 Condition: good Discharge instructions given to patient, family, Instructed on the need for admit, Demonstrated understanding of instructions, 12:25 Patient left the ED. ap3 Signatures: Dispatcher [employer] EDMS Jackie Galindo Roman, MD MD rn Leal, Jahala, RN RN jl7 Marion Villarreal RN RN ap3 Tatyana Quinones Lacie RN RN lg3 Nancy Lynne, RN RN ld1 Sydney Torres bc6 Karina Manuel Quita Ware MD MD sw6 Corrections: (The following items were deleted from the chart) 08:03 07:00 Patient has correct armband on for positive identification. Bed in low position. bc6 Patient placed in safety clothing door closed, curtain open for safety measures. patient sleeping bc6 11:29 10:45 faxed transfer warrant to Judge Tay's office to be signed eb eb
--- NOTE | 2024-06-23 20:33 | EDPHYS ---
Physician Documentation [facility] Name: Reid Landers Age: 38 yrs Sex: Male : 1985 Arrival Date: 06/23/2024 Time: 10:51 Bed 23 Private MD: ED Physician Quita Decker HPI: 06/23 11:11 This 38 yrs old Male presents to ER via EMS with complaints of Suicidal sw6 Ideation. 11:11 The patient presents from home with EMS for evaluation for suicidal ideation. He sw6 reports he was having an argument with his when the police were called. He states earlier today he did express thoughts of wanting to hurt himself however he denies that now. He denies ever hurting himself in the past. No homicidal ideation. He denies any chest pain or pressure. No shortness of breath. No cough, congestion or URI symptoms. No nausea or vomiting. He does have pain to his left ankle and reports he did break it several days ago. He reports he was seen here and given a splint however he took it off himself. He has been trying to use crutches for ambulation. No history of high blood pressure or diabetes. He did have an [place]WR[place] written by the police captain. Here for evaluation. Historical: - Allergies: 11:02 No Known Allergies; ld1 - Home Meds: 11: None [Active]; ld1 - PMHx: 11: Seizure; ld1 - PSHx: 11:02 None; ld1 - Immunization history:: Adult Immunizations up to date. - Infectious Disease History:: Denies. - Social history:: Smoking status: Patient denies any tobacco usage or history of. ROS: 11:11 Constitutional: Negative for fever, chills, and weight loss, Cardiovascular: Negative sw6 for chest pain, palpitations, and edema, Respiratory: Negative for shortness of breath, cough, wheezing, and pleuritic chest pain, Abdomen/GI: Negative for abdominal pain, nausea, vomiting, diarrhea, and constipation, Psych: Negative for depression, anxiety, suicide ideation, homicidal ideation, and hallucinations, 11:11 MS/extremity: Positive for pain, 11:11 All other systems are negative, Exam: 11:11 Constitutional: This is a well developed, well nourished patient who is awake, alert, sw6 and in no acute distress. Chest/axilla: Normal chest wall appearance and motion. Nontender with no deformity. No lesions are appreciated. Cardiovascular: Regular rate and rhythm with a normal S1 and S2. No gallops, murmurs, or rubs. Normal PMI, no JVD. No pulse deficits. Respiratory: Lungs have equal breath sounds bilaterally, clear to auscultation and percussion. No rales, rhonchi or wheezes noted. No increased work of breathing, no retractions or nasal flaring. Abdomen/GI: Soft, non-tender, with normal bowel sounds. No distension or tympany. No guarding or rebound. No evidence of tenderness throughout. Back: No spinal tenderness. No costovertebral tenderness. Full range of motion. 11:11 Musculoskeletal/extremity: Tenderness to the bilateral malleoli of the left ankle. Decreased range of motion of the left ankle due to pain. +2 dorsalis pedis pulse on the left side. He can wiggle toes on the left foot without difficulty. 12:24 ECG was reviewed by the Attending Physician. Vital Signs: 13:47 BP 145 / 91; Pulse 64; Resp 18; Temp 97.6(TE); Pulse Ox 100% on R/A; Weight 95.25 kg; ld1 Height 5 ft. 10 in. ; Pain 7/10; 20:38 BP 163 / 106; Pulse 76; Resp 18; Pulse Ox 98% ; kmf 06/24 12:16 BP 154 / 110; Pulse 85; Resp 17; Pulse Ox 99% ; bc6 06/23 13:47 Body Mass Index 30.13 (95.25 kg, 177.8 cm) ld1 06/23 13:47 Pain Scale: Adult ld1 Procedures: 06/23 13:19 Splinting: Splint applied to left leg using Orthoglass splint, applied by myself. sw6 Patient tolerated well, posterior leg and sugar tong. MDM: 10:59 Medical Screening Exam initiated 11:11 Differential diagnosis: depression, Suicidal ideation. Data reviewed: vital signs, rust nurses notes, EMS record. 13:10 ED course: The patient is doing well here in the ER. His laboratory studies are 6 unremarkable. His COVID and influenza test is negative. His UDS is positive for opiates. X-ray of his left ankle shows a fracture. He was given a splint here in the ER. He is medically okay for evaluation by Maria E Gallegos.. 20:50 Transition of care: After a detail discussion of the patient's case, care is sw6 transferred to Steve Yu MD. ED course: The patient is doing well him ER. He was seen and evaluated by Maria E Gallegos at bedside who recommends inpatient admission. He was signed out to Dr. Yu pending bed availability.. 06/23 11:11 Order name: Acetaminophen; Complete Time: 11:59 06/23 11:59 Interpretation: Within normal limits: ACETA < 2.5. 06/23 11:11 Order name: Basic Metabolic Panel; Complete Time: 11:59 06/23 11:59 Interpretation: Within normal limits. 06/23 11:11 Order name: CBC with Diff; Complete Time: 11:59 06/23 11:59 Interpretation: Within normal limits. 06/23 11:11 Order name: ETOH Level; Complete Time: 11:59 06/23 11:59 Interpretation: Within normal limits. 06/23 11:11 Order name: Hepatic Function; Complete Time: 11:59 06/23 11:59 Interpretation: Within normal limits. 06/23 11:11 Order name: Salicylate; Complete Time: 12:40 06/23 12:40 Interpretation: Within normal limits: MARY < 2.2. 06/23 11:11 Order name: Urine Drug Screen; Complete Time: 11:59 06/23 11:59 Interpretation: Abnormal: Positive for opiates. 06/23 11:11 Order name: COVID-19 Ag + Flu A+B Ag; Complete Time: 12:40 06/23 12:40 Interpretation: Within normal limits: SARS RESULT Negative. 06/23 12:04 Order name: Ankle Left 3 View; Complete Time: 12:40 EDTN 06/23 12:41 Interpretation: Abnormal: Fracture. 06/23 11:11 Order name: EKG - Nurse/Tech; Complete Time: 12:18 rust 06/23 11:11 Order name: IV Saline Lock; Complete Time: 11:16 06/23 11:11 Order name: Labs collected and sent; Complete Time: 11:16 06/23 11:11 Order name: Suicide Precautions; Complete Time: 11:16 sw6 06/23 11:11 Order name: Suicide Screening (Nikki); Complete Time: 11:16 EC: Rate is 64 beats/min. Rhythm is regular. QRS [place] is Normal. SC interval is normal. QRS sw6 interval is normal. QT interval is normal. No Q waves. T waves are Normal. No ST changes noted. Administered Medications: 06/24 10:06 Drug: Ketorolac IVP 15 mg IVP once Route: IVP; Site: right forearm; ap3 12:09 Follow up: Response: No adverse reaction; Pain is decreased ap3 Disposition Summary: 06/23/24 20:32 Transfer Ordered Notes: Transfer Location: Psych Facility rn Reason: Higher level of care rn Condition: Stable rn Problem: new rn Symptoms: are unchanged rn Accepting Physician: (06/24/24 12:25) ap3 Diagnosis - Suicidal ideations rn Forms: - Medication Reconciliation Form rn - SBAR form rn Signatures: Dispatcher [employer] EDMS Steve Yu MD MD rn Prokisch, Amanda, RN RN ap3 Nancy Lynne RN RN ld1 Bran Vazquez MD MD rt Quita Decker MD MD sw6 Corrections: (The following items were deleted from the chart) 06/23 11:12 11:12 ACETAMINOPHEN+C.LAB.BRZ ordered. EDMS EDMS 11:12 11:12 BASIC METABOLIC PANEL+C.LAB.BRZ ordered. EDMS EDMS 11:12 11:12 CBC+H.LAB.BRZ ordered. EDMS EDMS 11:12 11:12 ETHANOL+C.LAB.BRZ ordered. EDMS EDMS 11:12 11:12 HEPATIC FUNCTION+C.LAB.BRZ ordered. EDMS EDMS 11:12 11:12 SALICYLATE+C.LAB.BRZ ordered. EDMS EDMS 11:12 11:12 URINE DRUG SCREEN+UC.LAB.BRZ ordered. EDMS EDMS 11:12 11:12 COVID-19 Ag + Flu A+B Ag+I.LAB.BRZ ordered. EDMS EDMS 12:04 11:11 Ankle Left 2 View+RAD.RAD.BRZ ordered. EDMS EDMS 12:00 Abnormal: Fracture. sw6 EDMS 12:00 Ankle Left 2 View+RAD.RAD.BRZ reviewed. rust EDMS 06/24 12:25 06/23 20:32 Dr. hampton ap3
[2024-06-24] MEDS ORDERED: KETOROLAC 30 MG/ML INJ ONE (10:03)
[2024-06-24 12:30] VITALS: TEMP 97.6
[2024-06-24 12:33] VITALS: BP 154/110; O2SAT 99
--- NOTE | 2024-06-27 12:22 | EKG ---
Test Date: 2024-06-23 Test Time: 12:17:07 Supplier Development Manager: ABEL MEASUREMENT RESULTS: Intervals: Rate: 64 TX: 186 QRSD: 98 QT: 404 QTc: 416 [place]: P: 21 TX: 186 QRS: 69 T: 53 INTERPRETIVE STATEMENTS: Normal sinus rhythm Normal ECG Compared to ECG 02/25/2022 20:42:22 No significant changes Electronically Signed On 06-27-24 12:12:09 CDT by Jules Quiroz
== END 2024-06-24 12:25 ==
LOC: ER 10:51
DX: R45.851 Suicidal ideations (principal)
CPT/HCPCS: 36415; 80048; 80076; 80143; 80179; 80307; 82077; 85025; 87428; 93005; 96374; 99285

== ENCOUNTER 2024-12-19 11:02 | Emergency (ER) | payer SELFPAY ==
[2024-12-19] MEDS ORDERED: EPINEPHrine 1 MG/10 ML SYR IV ONE (11:03)
--- OUTSIDE RECORDS SUMMARY | 2024-12-19 11:04 | XMS REPORT | Continuity of Care Document ---
Author Name Unknown Address [address] [place] [address] [facility] Address [address] [place] [address] Care Team Providers Care Director Of Bands Name Role Phone Pcp, Patient Does Not Have A Primary Care Physic clair BINU MCGINNIS Attending Clinician Unavailable Binu Sandoval Attending Clinician [phone] Doctor Unassigned, [place] Attending Clinician U navailable Problems Condition Name Condition Details Condition Category Status Onset Date Resolution Date Last Treatment Date Treating Clinician Comments Source No known active problems No known active problems Disease [facility] Allergies, Adverse Reactions, Alerts Allergy Name Allergy Type Status Severity Reaction(s) Onset Date Inactive Date Treating Clinician Comments Source NO KNOWN ALLERGIE S Drug Class Active [facility] Social History Social Habit Start Date Stop Date Quantity Comments Source Exposure to SARS-CoV-2 (event) 2021-11-02 00:00:00 2021-11-12 15:19:00 Not sure [facility] Alcohol intake 2021-11-12 00:00:00 2021-11-12 00:00:00 Lifetime non-drinker (finding) [facility] Tobacco use and exposure 2021-10-08 00:00:00 2021-10-08 00:00:00 Smokeless tobacco non-user [facility] Sex Ass[birth year] At 1985 00:00:00 1985 00:00:00 [facility] Smoking Status Start Date Stop Date Source Never smoked tobacco [facility] Medications Ordered Medication Name Filled Medication Name Start Date Stop Date Current Medication? Ordering Clinician Indication Dosage Frequency Signature (SIG) Comments Components Source triamcinolo ne acetonide (KENALOG) injection 40 mg 11-12 23:30: 00 11-12 22:21 :00 No [id number] 40mg [facility] No known medications 11-12 15:35: 14 No No known medication [facility] Vital Signs Vital Name Observation Time Observation Value Comments S trae Systolic blood pressure 2021-11-12 21:05:00 148 mm[Hg] [facility] Diastolic blood pressure 2021-11-12 21:05:00 92 mm[Hg] [facility] Heart rate 2021-11-12 21:05:00 102 /min [facility] Oxygen saturation in Arterial blood by Pulse oximetry 2021-11-12 21:05:00 99 /min [facility] Body weight 2021-11-12 20:34:00 94.484 kg [facility] BMI 2021-11-12 20:34:00 31.67 kg/m2 [facility] Procedures Procedure Date / Time Performed Performing Clinician Source PATIENT FINANCIAL RESPONSIBILITY - ALL FORMS 2021-11-15 05:01:00 Doctor Unassigned, [place] [facility] Encounters Start Date/Time End Date/Time Encounter Type Admission Type Attending Clinicians Care Facility Care Department Encounter ID Source 2021-12-26 11:15:00 2021-12-26 11:15:00 Outpatient BINU KUMAR [facility] [id number] [facility] 2021-12-25 00:00:00 2021-12-25 00:00:00 Letter (Out) Binu Mcginnis [facility] 1.2.840.114 350.1.13.10 4.2.7.2.686 [id number] [facility] 2021-12-12 08:15:00 2021-12-12 08:15:00 Outpatient BINU KUMAR [facility] [id number] [facility] 2021-12-11 00:00:00 2021-12-11 00:00:00 Letter (Out) Rahel [facility] 1.2.840.114 350.1.13.10 4.2.7.2.686 [id number] [facility] 2021-11-15 00:00:00 2021-11-15 00:00:00 Orders Only Doctor Unassigned, [place] [facility] 1.2.840.114 350.1.13.10 [id number] [id number] [facility] 2021-11-15 00:00:00 2021-11-15 00:00:00 Letter (Out) Rahel [facility] 1.2.840.114 350.1.13.10 4.2.7.2.686 [id number] [facility] 2021-11-12 15:30:00 2021-11-12 17:26:04 Outpatient R RAHEL BINU [facility] [id number] [facility] 2021-11-12 15:30:00 2021-11-12 17:26:04 Office Visit Rahel [facility] 1.2.840.114 350.1.13.10 4.2.7.2.686 [id number] [facility] 2021-11-12 15:30:00 2021-11-12 15:30:00 Outpatient Markie MCGINNIS BINU [facility] [id number] [facility] 2021-10-23 16:00:00 2021-10-23 16:00:00 Outpatient Markie MCGINNIS [facility] [id number] [facility] 2021-10-23 08:30:00 2021-10-23 08:30:00 Outpatient Markie MCGINNIS [facility] [id number] [facility] 2021-10-21 00:00:00 2021-10-21 00:00:00 [facility] (Out[facility] 1.2.840.114 350.1.13.10 4.2.7.2.686 [id number] [facility] 2021-10-17 00:00:00 2021-10-17 00:00:00 Letter (Out) Rahel [facility] JONELLE?[facility] 1..840.114 350.1.13.10 4.2.7.2.686 [id number] [facility] 2021-10-09 00:00:00 2021-10-09 00:00:00 Telephone Rahel [facility] JONELLE?[facility] 1..840.114 350.1.13.10 4.2.7.2.686 [id number] [facility] 2021-10-08 15:00:00 2021-10-08 16:27:42 Outpatient R MCGINNIS[facility]U [facility] [id number] [facility] 2021-10-08 15:00:00 2021-10-08 16:27:42 Office Visit Rahel [facility] JONELLE?[facility] 1..840.114 350.1.13.10 4.2.7.2.686 [id number] [facility] 2021-10-08 00:00:00 2021-10-08 00:00:00 Letter (Out) Rahel [facility] JONELLE?[facility] 1.2.840.114 350.1.13.10 4.2.7.2.686 [id number] [facility] 2021-10-08 00:00:00 2021-10-08 00:00:00 Orders Only Doctor Unassigned, [place] [facility] 1.2.840.114 350.1.13.10 4.2.7.2.686 [id number] [facility]
--- NOTE | 2024-12-19 11:43 | EDPHYS ---
Physician Documentation [facility] Name: Reid Landers Age: 39 yrs Sex: Male : 1985 Arrival Date: 12/19/2024 Time: 11:02 Bed 2 Private MD: ED Physician Norma Wallace HPI: 12/19 11:30 This 39 yrs old Male presents to ER via EMS with complaints of CPR. sp3 11:30 39-year-old male presents via EMS with reports of patient hanging himself with his sp3 jumpsuit while in police custody at local [facility]. EMS found patient already cut from the jumpsuit and laying on the floor with CPR in progress by local police. EMS continued CPR and ACLS with 3 rounds of epinephrine as well as intubation. C-collar was not placed. Patient arrived with CPR in progress with good pulses with auto compressions and intraosseous venous access in place. ROS, history of physical limited secondary to CPR. Please see MDM for continued documentation.. Historical: - Allergies: 11:15 No Known Allergies; iw - PMHx: 11:15 Seizure; iw ROS: 11:33 Unable to obtain ROS due to obtunded state, sp3 Exam: 11:34 Unable to obtain exam due to obtunded state, sp3 11:40 Neck: Swollen neck bilateral with multiple ligature oh and surface abrasions. Mild sp3 erythema to bilateral eyes also noted. Absent corneal reflex and pupils were equal and fixed at 4 mm with 0 response to light. Examination of extremities, abdomen and chest determined no signs of other injury or trauma., Vital Signs: 11:05 Temp 96.7(R); iw MDM: 11:09 Medical Screening Exam initiated sp3 11:34 Data reviewed: vital signs, nurses notes, EMS record. ED course: Patient arrived at our sp3 facility at approximately 11:01 AM. Patient was immediately placed onto ER stretcher and EMS monitor, CPR device were both removed. Manual compressions started by ER staff. Patient was placed on our monitor while peripheral IV access was attempted. Patient received immediate epinephrine and bicarbonate while patient was assessed. After 3 minutes pulse check determined no pulse and patient was asystole on the monitor with zero cardiac electrical activity. Ultrasound was at that point available and patient had zero mechanical cardiac activity on subxiphoid, parasternal long, and parasternal short windows. This coupled with no neurological activity, absent corneal reflexes, zero cardiac electrical activity, and zero cardiac mechanical activity, patient was pronounced at 11:05 AM. Questions were answered to [place] and local PD who were on scene here at the hospital. Patient was noted to have swollen neck, ligature oh consistent with hanging. No no subcutaneous air was noted. C-collar was in the process of being placed however patient was pronounced at 1105 prior to being able to be placed.. Administered Medications: 11:02 Drug: EPINEPHrine 0.1mg/mL 1:10,000 1 mg IVP once {Note: right humeral IO.} Route: IVP; iw Site: Other; 11:05 Follow up: Response: No change in condition iw 11:05 Drug: Sodium Bicarbonate 1 amp IVP once; (50 mL); equals 50 mEq {Note: right humeral iw head .} Route: IVP; Site: Other; 11:05 Follow up: Response: No change in condition iw Disposition: 11:41 . sp3 Disposition Summary: 12/19/24 11:42 Patient Notes: Location: [employer] [place] sp3 Pronouncing Physician: Norma Wallace sp3 Time of : 11:05 12/19/2024 sp3 Diagnosis - Alleged hanging, CPR, alleged by suicide sp3 Signatures: Erum Decker, RN RN iw Norma Wallace MD MD sp3
--- NOTE | 2024-12-19 11:43 | ER ---
Nurse's Notes [facility] Name: Reid Landers Age: 39 yrs Sex: Male : 1985 Arrival Date: 12/19/2024 Time: 11:02 Bed 2 Private MD: Diagnosis: Alleged hanging, CPR, alleged by suicide Presentation: 12/19 10:59 Chief complaint: EMS states: pt found hanging by jump suit in [facility] cell, CPR initiated iw by PD , last known well was 0900. 10:59 Acuity: CRISTHIAN 1 iw 10:59 Care prior to arrival: IV initiated. in the right humeral head. Compressions began iw prior to arrival. 10:59 Method Of Arrival: EMS: [facility] iw Historical: - Allergies: 11:15 No Known Allergies; iw - PMHx: 11:15 Seizure; iw Assessment: 11:02 CPR assessment: unresponsive, no respiratory effort, pulses absent w/ compressions. iw Cardiac rhythm is asystole. 11:05 CPR assessment: unresponsive, no respiratory effort, Ambu ventilation, pale, pulses iw absent w/ compressions. Cardiac rhythm is asystole. Cardiac rhythm is asystole. Vital Signs: 11:05 Temp 96.7(R); iw ED Course: 11:02 Inserted saline lock: 20 gauge in right hand, using aseptic technique. iw 11:04 Patient arrived in ED. im 11:09 Norma Wallace MD is Attending Physician. sp3 11:12 Triage completed. iw 11:41 Norma Wallace MD is Pronouncing Provider. sp3 12:17 Erum Decker, JUSTYN is Primary Nurse. iw Administered Medications: 11:02 Drug: EPINEPHrine 0.1mg/mL 1:10,000 1 mg IVP once {Note: right humeral IO.} Route: IVP; iw Site: Other; 11:05 Follow up: Response: No change in condition iw 11:05 Drug: Sodium Bicarbonate 1 amp IVP once; (50 mL); equals 50 mEq {Note: right humeral iw head .} Route: IVP; Site: Other; 11:05 Follow up: Response: No change in condition iw Outcome: 11:05 Outcome Patient iw 11:05 Patient : Time of 11:05 Pronounced by Norma Wallace MD 11:05 Condition: iw 12:39 Patient left the ED. iw Signatures: Erum Decker RN RN iw Norma Wallace MD MD sp3 Beatrice Hernandez Corrections: (The following items were deleted from the chart) 11:19 10:59 Chief complaint: EMS states: pt found hanging by jump suit in [facility] cell, CPR iw initiated by PD iw
[2024-12-19 15:33] VITALS: TEMP 96.7
== END 2024-12-19 12:39 ==
LOC: ER 11:02
DX: S10.84XA External constriction of other specified part of neck, initial encounter (principal); W49.09XA Other specified item causing external constriction, initial encounter; Y92.143 Cell of prison as the place of occurrence of the external cause
CPT/HCPCS: 92950; 96374; 96375; 99285; J0169